=== PATIENT | female | born 1965 | race Caucasian/White ===

== ENCOUNTER 2016-03-12 16:00 | Outpatient (RCR) | payer BC ==
[~2016-03-12 16:00] MED LIST: /CARBXR20T OR; ALBUTEROL XX; CALCTAB22 OR; COMPAZINE PO; MAXA10TA17 OR; MULTIVIT PO; PERC5TAB8 OR; TOPI100T OR; TOPI50TA OR; VITA100T OR; VITA500T OR; VITAMIN D50000 UNT OR; ZITH500T OR
== END 2016-03-13 ==
LOC: M OUTALCOH 16:00
PROVIDERS: ATTEND Psychiatry & Neurology Psychiatry
DX: F10.10 Alcohol abuse, uncomplicated (principal); F11.20 Opioid dependence, uncomplicated; F13.20 Sedative, hypnotic or anxiolytic dependence, uncomplicated; F19.20 Other psychoactive substance dependence, uncomplicated

== ENCOUNTER 2016-03-28 08:55 | Outpatient (RCR) | payer BC | END 2016-04-10 | LOC: M OUTALCOH 08:55 | PROVIDERS: ATTEND Psychiatry & Neurology Psychiatry | DX: F11.20 Opioid dependence, uncomplicated (principal); F10.10 Alcohol abuse, uncomplicated; F13.20 Sedative, hypnotic or anxiolytic dependence, uncomplicated; F19.20 Other psychoactive substance dependence, uncomplicated ==

== ENCOUNTER 2016-04-24 09:00 | Outpatient (RCR) | payer OTHER | END 2016-05-11 | LOC: M OUTALCOH 09:00 | PROVIDERS: ATTEND Psychiatry & Neurology Psychiatry | DX: F10.10 Alcohol abuse, uncomplicated (principal); F13.20 Sedative, hypnotic or anxiolytic dependence, uncomplicated; F19.20 Other psychoactive substance dependence, uncomplicated; F11.20 Opioid dependence, uncomplicated ==

== ENCOUNTER → 2016-04-26 | Outpatient (REF) | payer OTHER | LOC: M LAB REF 16:21 | PROVIDERS: ATTEND Nurse Practitioner Adult Health | DX: G40.89 Other seizures (principal) ==

== ENCOUNTER 2016-11-15 09:18 | Emergency (ER) | payer OTHER ==
[~2016-11-15] VITALS: Ht 162.6 cm; Wt 87.7 kg
[2016-11-15 09:18] VITALS: BP 114/73
[2016-11-15] MEDS ORDERED: DULO1CAP2 (09:31)
[2016-11-15] MEDS ORDERED: HYDR1CAP25 (09:31)
[2016-11-15] MEDS ORDERED: XARE20TA (09:31)
[2016-11-15] MEDS ORDERED: ONDA8TAB8 (09:31)
[2016-11-15] MEDS ORDERED: TRAZ-136 (09:31)
[2016-11-15] MEDS ORDERED: AZEL0.055 (09:31)
[2016-11-15] MEDS ORDERED: NALT50TA4 (09:31)
[2016-11-15] MEDS ORDERED: predniSONE 20 MG TAB PO ONE (10:15)
--- NOTE | 2016-11-15 10:47 | REP ---
Right ribs and PA chest: Right ribs four views: There is no rib fracture or other rib abnormality. PA chest: Comparison is 05/08/2014. There is no pneumothorax, hemothorax or pulmonary contusion. Lung jay are clear. Cardiac size is normal. The stevie, mediastinum, bony thorax unremarkable. Impression: Negative PA chest. Signed by Sven Jacobo MD 11/15/2016 10:39 A
[2016-11-15] MEDS ORDERED: NORCOTAB PO (10:57)
[2016-11-15] MEDS ORDERED: CYCL10TA PO (10:57)
== END 2016-11-15 11:21 | disposition home or self-care (01) ==
LOC: M ED 09:18
DX: S20.229A Contusion of unspecified back wall of thorax, initial encounter (principal); W22.03XA Walked into furniture, initial encounter; Y92.239 Unspecified place in hospital as the place of occurrence of the external cause; Y93.89 Activity, other specified; Y99.0 Civilian activity done for income or pay; F41.9 Anxiety disorder, unspecified; R56.9 Unspecified convulsions; Z79.01 Long term (current) use of anticoagulants; Z79.899 Other long term (current) drug therapy; Z88.1 Allergy status to other antibiotic agents; Z88.0 Allergy status to penicillin; Z88.8 Allergy status to other drugs, medicaments and biological substances; Z91.030 Bee allergy status; Z98.890 Other specified postprocedural states; Z98.0 Intestinal bypass and anastomosis status; Z87.891 Personal history of nicotine dependence; Z86.711 Personal history of pulmonary embolism

== ENCOUNTER 2017-04-22 10:02 | Emergency (ER) | payer OTHER ==
[2017-04-22 10:42] LABS: BASO % 0.8 % (0.0-1.0); EOS # 0.1 10^3/uL (0.0-0.50); EOS % 1.7 % (0.0-3.0); HEMATOCRIT 38.7 % (36.0-47.0); IMMATURE GRANULOCYTE % 0.2 % (0-3.0); LYMPH # 1.2 10^3/uL (1.5-4.5); LYMPH % 22.7 % (24.0-44.0); MEAN CORPUSCULAR HEMOGLOBIN 29.3 pg (27.0-33.0); MEAN CORPUSCULAR HGB CONC 33.6 g/dl (32.0-36.5); MEAN CORPUSCULAR VOLUME 87.2 fl (80.0-96.0); MONO # 0.3 10^3/uL (0.0-0.8); MONO % 5.6 % (0.0-5.0); NEUTROPHILS # 3.7 10^3/uL (1.8-7.7); PLATELET COUNT, AUTOMATED 246 10^3/uL (150-450); RED BLOOD COUNT 4.44 10^6/uL (4.00-5.40); RED CELL DISTRIBUTION WIDTH 12.6 % (11.5-14.5); WHITE BLOOD COUNT 5.3 10^3/uL (4.0-10.0)
[2017-04-22] MEDS: GI COCKTAIL 50ML BTL(HYOSCYAMINE/MAALOX/LIDOCAINE VISCOUS)(1:3:1) PO (10:44)
[2017-04-22 10:53] LABS: INR 1.27; PROTHROMBIN TIME 16.2 SECONDS (12.4-14.5)
[2017-04-22 10:54] LABS: PARTIAL THROMBOPLASTIN TIME 27.7 SECONDS (26.8-37.9)
[2017-04-22 10:55] LABS: ALBUMIN/GLOBULIN RATIO 1.14 (1.00-1.93); ALKALINE PHOSPHATASE 92 U/L (45-117); ALT/SGPT 43 U/L (12-78); ANION GAP 8 MEQ/L (8-16); AST/SGOT 32 U/L (7-37); BILIRUBIN,DIRECT < 0.1 MG/DL (0.0-0.2); BILIRUBIN,TOTAL 0.3 MG/DL (0.2-1.0); BLOOD UREA NITROGEN 15 MG/DL (7-18); CALCIUM LEVEL 9.1 MG/DL (8.5-10.1); CARBON DIOXIDE LEVEL 23 MEQ/L (21-32); CHLORIDE LEVEL 109 MEQ/L (98-107); CPK CREATINE PHOSPHOKINASE 147 U/L (26-192); CREATININE FOR GFR 1.11 MG/DL (0.55-1.30); GLOMERULAR FILTRATION RATE 54.7 (>51); GLUCOSE, FASTING 95 MG/DL (70-100); LIPASE 147 U/L (73-393); SODIUM LEVEL 140 MEQ/L (136-145); TOTAL PROTEIN 7.5 GM/DL (6.4-8.2); TROPONIN I < 0.02 NG/ML (< 0.10)
[2017-04-22 11:01] LABS: CK-MB VALUE MASS 2.5 NG/ML (0.0-3.6)
[2017-04-22 11:15] LABS: D-DIMER QUANT 551.3 ng/ml (<500)
[2017-04-22] MEDS ORDERED: ISOVUE-370 76% 100ML VIAL (Q9967) As Ordered (11:33)
== END 2017-04-22 13:24 | disposition home or self-care (01) ==
LOC: M ED 10:02
DX: K80.70 Calculus of gallbladder and bile duct without cholecystitis without obstruction (principal); Z79.899 Other long term (current) drug therapy; Z86.711 Personal history of pulmonary embolism; Z98.0 Intestinal bypass and anastomosis status; Z82.49 Family history of ischemic heart disease and other diseases of the circulatory system; Z87.891 Personal history of nicotine dependence; Z88.0 Allergy status to penicillin; Z88.5 Allergy status to narcotic agent; Z88.1 Allergy status to other antibiotic agents; Z91.030 Bee allergy status
CPT/HCPCS: Q9967

== ENCOUNTER 2017-05-09 07:22 | Day surgery (SDC) | payer OTHER ==
[2017-05-09] MEDS: NS 1,000 ML IV (07:44)
[2017-05-09] MEDS ORDERED: LIDOCAINE 2% INJ 100 MG/5 ML SDV (FOR ANES.) As Ordered (07:51)
[2017-05-09] MEDS ORDERED: PROPOFOL 200 MG/20 ML VIAL As Ordered ×2 (07:53→08:51)
[2017-05-09] MEDS ORDERED: fentaNYL 100 MCG/2 ML INJECTION (J3010) As Ordered (08:27)
== END 2017-05-09 10:05 | disposition home or self-care (01) ==
LOC: M OPP 07:22
DX: Z12.11 Encounter for screening for malignant neoplasm of colon (principal); D12.0 Benign neoplasm of cecum; R10.13 Epigastric pain; K31.89 Other diseases of stomach and duodenum; K21.9 Gastro-esophageal reflux disease without esophagitis; Z98.0 Intestinal bypass and anastomosis status; Z98.84 Bariatric surgery status; Z86.711 Personal history of pulmonary embolism; K80.20 Calculus of gallbladder without cholecystitis without obstruction; G43.909 Migraine, unspecified, not intractable, without status migrainosus; R56.9 Unspecified convulsions; F32.9 Major depressive disorder, single episode, unspecified; F41.9 Anxiety disorder, unspecified; Z78.0 Asymptomatic menopausal state; Z87.891 Personal history of nicotine dependence; Z88.0 Allergy status to penicillin; Z88.8 Allergy status to other drugs, medicaments and biological substances; Z88.1 Allergy status to other antibiotic agents; Z91.030 Bee allergy status; Z79.82 Long term (current) use of aspirin; Z79.899 Other long term (current) drug therapy; Z79.01 Long term (current) use of anticoagulants; Z80.49 Family history of malignant neoplasm of other genital organs
CPT/HCPCS: 45385

== ENCOUNTER → 2017-12-18 | Outpatient (REF) | payer OTHER ==
[2017-12-22 14:08] LABS: VITAMIN A, RETINOL LEVEL 36.5 ug/dL (33.1-100.0)
== END ==
LOC: M LAB REF 12:43
DX: Z98.84 Bariatric surgery status (principal)

== ENCOUNTER → 2018-04-16 | Outpatient (CLI) | payer OTHER ==
[~2018-04-16] MED LIST changes: +ASPI81TA85 PO; +AZEL0.055; +CALC1TAB26 PO; +CETI10TA PO; +CYCL10TA PO; +DEXI60CA2 PO; +DULO1CAP2 PO; +HAIR1TAB5 PO; +HYDR1CAP25; +MELA10CA PO; +MURO5OIN OD; +NALT50TA4; +NORCOTAB PO; +ONDA8TAB8; +PERC5TAB12 PO; +TRAZ-163; +VIST25CA PO; +VITA100066 PO; +XARE20TA; +ZOFR4TAB14 PO
--- NOTE | 2018-04-16 17:48 | REPMRS ---
Patient History The patient states she had a clinical breast exam in 04/29 Family history of breast cancer at age 50 or over in maternal aunt, colorectal cancer at age 50 or over in maternal aunt. 3D TOMOSYNTHESIS WAS PERFORMED. Digital Woman Screen Mammo: April 16, 2018 - Exam #: [id number] Bilateral CC and MLO view(s) were taken. Technologist: Juana Russell, Technologist Prior study comparison: October 07, 2014, digital woman screen mammo performed at [facility]. August 13, 2013, digital woman screen mammo performed at [facility]. FINDINGS: There are scattered fibroglandular densities. There has been no change in the appearance of the mammogram from the prior studies. There is a mild amount of residual fibroglandular tissue which is fairly symmetric. There is no interval development of dominant mass, architectural distortion, or clustered microcalcification suggestive of malignancy. Assessment: BI-RADS/ACR category 1 mammogram. Negative Mammogram. Recommendation Routine screening mammogram in 1 year (for women over age 40). This mammogram was interpreted with the aid of an FDA-approved computer-aided dectection system. Electronically Signed By: Sven Panchal MD 04/16/18 [id number]
== END ==
LOC: M WHC 14:17
PROVIDERS: ATTEND Nurse Practitioner Family
DX: Z12.31 Encounter for screening mammogram for malignant neoplasm of breast (principal)

== ENCOUNTER → 2018-04-16 | Outpatient (REF) | payer OTHER ==
[2018-04-18 14:21] LABS: HPV HYBRID CAPTURE II Negative (Negative)
== END ==
LOC: M SFHCWAGY 14:31
PROVIDERS: ATTEND Nurse Practitioner Family
DX: Z12.4 Encounter for screening for malignant neoplasm of cervix (principal)
CPT/HCPCS: 87624; G0123

== ENCOUNTER 2018-10-30 11:52 | Emergency (ER) | payer OTHER ==
[~2018-10-30] VITALS: Ht 162.6 cm; Wt 88.2 kg
[~2018-10-30 11:52] MED LIST changes: -/CARBXR20T OR; -DULO1CAP2 PO; +DULO1CAP5 PO; +HYDR-3715 PO; -NORCOTAB PO; -ONDA8TAB8; +ONDA8TAB8 PO; +TEGR1TAB OR; -TRAZ-163; +TRAZ-163 PO; -XARE20TA; +XARE20TA PO
[2018-10-30] MEDS ORDERED: MORPHINE 4 MG/ML 1ML VIAL/SYRINGE (J2270) IV ONE (12:15)
[2018-10-30] MEDS ORDERED: NS 1,000 ML IV ONE (12:15)
[2018-10-30] MEDS ORDERED: ONDANSETRON 4MG/2ML VIAL (J2405) IV ONE (12:15)
[2018-10-30] MEDS ORDERED: PANTOPRAZOLE 40MG INJ (PROTONIX) (C9113) IV ONE (12:15)
[2018-10-30] MEDS ORDERED: KETOROLAC 30 MG/ML VIAL (J1885) IV ONE (12:15)
[2018-10-30 12:28] LABS: BASO % 0.7 % (0.0-1.0); EOS % 0.5 % (0.0-3.0); HEMATOCRIT 39.5 % (36.0-47.0); HEMOGLOBIN 13.1 g/dl (12.0-15.5); LYMPH # 1.2 10^3/uL (1.5-5.0); LYMPH % 28.1 % (24.0-44.0); MEAN CORPUSCULAR HEMOGLOBIN 29.4 pg (27.0-33.0); MEAN CORPUSCULAR HGB CONC 33.2 g/dl (32.0-36.5); MEAN CORPUSCULAR VOLUME 88.8 fl (80.0-96.0); MONO # 0.2 10^3/uL (0.0-0.8); MONO % 4.7 % (0.0-5.0); NEUTROPHILS # 2.8 10^3/uL (1.5-8.5); NEUTROPHILS % 65.8 % (36.0-66.0); PLATELET COUNT, AUTOMATED 255 10^3/uL (150-450); RED BLOOD COUNT 4.45 10^6/uL (4.00-5.40); WHITE BLOOD COUNT 4.2 10^3/uL (4.0-10.0)
[2018-10-30 13:38] LABS: ALT/SGPT 47 U/L (12-78); BILIRUBIN,DIRECT < 0.1 MG/DL (0.0-0.2); BILIRUBIN,TOTAL 0.4 MG/DL (0.2-1.0); CK-MB VALUE MASS 2.2 NG/ML (<3.6); CPK CREATINE PHOSPHOKINASE 173 U/L (26-192); LIPASE 228 U/L (73-393); MB/CK RELATIVE INDEX 1.27 (< OR =4); TOTAL PROTEIN 7.4 GM/DL (6.4-8.2); TROPONIN I < 0.02 NG/ML (< 0.10)
[2018-10-30 14:10] LABS: AMYLASE 55 U/L (25-115); BLOOD UREA NITROGEN 13 MG/DL (7-18); CALCIUM LEVEL 9.2 MG/DL (8.5-10.1); CARBON DIOXIDE LEVEL 21 MEQ/L (21-32); CHLORIDE LEVEL 110 MEQ/L (98-107); CREATININE FOR GFR 1.06 MG/DL (0.55-1.30); GLOMERULAR FILTRATION RATE 57.3 (>51); GLUCOSE, FASTING 102 MG/DL (70-100); POTASSIUM SERUM 4.7 MEQ/L (3.5-5.1); SODIUM LEVEL 142 MEQ/L (136-145)
--- NOTE | 2018-10-30 14:11 | REP ---
RIGHT UPPER QUADRANT ULTRASOUND: Real-time sonographic evaluation of the right upper quadrant performed. Gallstones are seen in the gallbladder which appear mobile. There is no gallbladder wall thickening or pericholecystic fluid. There is no intrahepatic biliary dilatation. Common bile duct is upper limits of normal at 7 mm. Liver is heterogeneous in echotexture. No gross liver or pancreatic mass is seen. Right kidney demonstrates no hydronephrosis with normal size 10.2 cm in length. IMPRESSION: Mobile gallstones in the gallbladder, which is moderately distended. There is no gallbladder wall thickening, pericholecystic fluid or significant biliary dilatation, common bile duct measuring 7 mm, at the upper limits of normal. Electronically Signed by Sven Panchal MD 10/30/2018 05:39 P
[2018-10-30] MEDS ORDERED: NORC1TAB7 PO (14:34)
[2018-10-30] MEDS ORDERED: ZOFR4TAB16 PO (14:34)
[2018-10-30 14:42] VITALS: BP 157/65
--- NOTE | 2018-10-30 21:40 | ECGEPIP ---
[facility] - ED Test Date: 2018-10-30 Pat Name: JANE MIKE Department: Room: - Gender: Female Outdoor Illuminating Engineer: ILIANA : 1965 Requested By: Karoline Raymundo Order Number: [id number] Reading MD: Karoline Raymundo Measurements Intervals [place] Rate: 70 P: 75 CO: 171 QRS: 80 QRSD: 95 T: 62 QT: 411 QTc: 445 Interpretive Statements SINUS RHYTHM MODERATE T-WAVE ABNORMALITY, CONSIDER ANTERIOR ISCHEMIA SIMILAR 04/22/17 Electronically Signed on 10-30-2018 21:40:03 EDT by Karoline Raymundo
[2018-11-12] MEDS ORDERED: RIZA10TA4 PO (14:58)
[2018-11-12] MEDS ORDERED: [UNRECOGNIZED DRUG - OTHER] PO (14:58)
[2018-11-12] MEDS ORDERED: TOPI50TA9 PO (14:58)
[2018-11-12] MEDS ORDERED: CARB200T98 PO (14:58)
[2018-11-12] MEDS ORDERED: MULTCAP PO (14:58)
== END 2018-10-30 14:44 | disposition home or self-care (01) ==
LOC: M ED 11:52
DX: K80.60 Calculus of gallbladder and bile duct with cholecystitis, unspecified, without obstruction (principal); I10 Essential (primary) hypertension; Z98.84 Bariatric surgery status; Z79.899 Other long term (current) drug therapy; Z79.82 Long term (current) use of aspirin; Z79.01 Long term (current) use of anticoagulants; Z88.0 Allergy status to penicillin; Z88.1 Allergy status to other antibiotic agents; Z91.030 Bee allergy status; Z91.040 Latex allergy status
CPT/HCPCS: 76705; 80047; 80048; 80076; 82150; 82550; 82553; 83690; 84484; 85025; 93005; 93041; 96361; 96374; 96375; 99284; C9113; J1885; J2270; J2405

== ENCOUNTER 2018-11-18 07:20 | Day surgery (SDC) | payer OTHER ==
[~2018-11-18] VITALS: Ht 162.6 cm; Wt 87.1 kg
[~2018-11-18 07:20] MED LIST changes: +CARB200T98 PO; +LR 1,000 ML IV ONE; +MULTCAP PO; +NORC1TAB7 PO; +RIZA10TA4 PO; +TOPI50TA9 PO; +ZOFR4TAB16 PO; +[UNRECOGNIZED DRUG - OTHER] PO
[2018-11-18] MEDS ORDERED: ceFAZolin 1GM INJ (J0690 PER 500MG) As Ordered ONE (08:06)
[2018-11-18] MEDS ORDERED: MIDAZOLAM INJ 5 MG/ML VIAL (J2250) As Ordered ONE ×2 (08:08→09:05)
[2018-11-18] MEDS ORDERED: PROPOFOL 200 MG/20 ML VIAL As Ordered ONE (08:08)
[2018-11-18] MEDS ORDERED: LIDOCAINE 2% INJ 100 MG/5 ML SDV (FOR ANES.) As Ordered ONE (08:08)
[2018-11-18] MEDS ORDERED: ROCURONIUM BROMIDE 50 MG/5 ML VIAL As Ordered ONE (08:08)
[2018-11-18] MEDS ORDERED: fentaNYL 250 MCG/5 ML INJECTION (J3010) As Ordered ONE (08:08)
[2018-11-18] MEDS ORDERED: ceFAZolin SOD 1 GM in D5W MINI-BAG PLUS 50 ML IV ONE (08:15)
[2018-11-18] MEDS ORDERED: ACETAMINOPHEN 1000MG 100ML IV BTL (OFIRMEV) (J0131 PER 10MG) As Ordered ONE ×2 (08:17→09:44)
[2018-11-18] MEDS ORDERED: SCOPOLAMINE 1MG TRANSDERMAL PATCH As Ordered ONE (08:27)
[2018-11-18] MEDS ORDERED: SCOPOLAMINE 1MG TRANSDERMAL PATCH TOP ONE (08:30)
[2018-11-18] MEDS ORDERED: BUPIVACAINE/EPIN 0.25% 30 ML VIAL As Ordered ONE (09:05)
[2018-11-18] MEDS ORDERED: KETOROLAC 60 MG/2 ML VIAL (J1885) As Ordered ONE (09:44)
[2018-11-18] MEDS ORDERED: SUGAMMADEX SODIUM 500 MG/5 ML VIAL (BRIDION) As Ordered ONE (09:44)
[2018-11-18] MEDS ORDERED: ONDANSETRON 4MG/2ML VIAL (J2405) As Ordered ONE ×2 (09:44→11:18)
[2018-11-18] MEDS ORDERED: dexameTHASONE 4 MG/ML 1ML VIAL (J1100) As Ordered ONE (09:44)
[2018-11-18] MEDS ORDERED: BUPIVACAINE LIPOSOME/PF 1.3% 20ML VIAL (13.3MG/ML)(EXPAREL)(C9290 PER1MG) As Ordered ONE (09:45)
--- NOTE | 2018-11-18 11:20 | RO ---
DATE OF PROCEDURE: 11/18/2018 PREOPERATIVE DIAGNOSIS: Symptomatic gallstones. POSTOPERATIVE DIAGNOSIS: Symptomatic gallstones. PROCEDURE: Laparoscopic cholecystectomy. SURGEON: Dr. Anthony Wells. TEST CARRIER: ANESTHESIA: General endotracheal anesthesia. ESTIMATED BLOOD LOSS: 50 mL . FLUIDS: Crystalloid. DESCRIPTION OF PROCEDURE: The patient was brought to the operating room and was given general anesthesia. After adequate anesthesia and preoperative antibiotics were given, the patient was prepped and draped in sterile fashion. Next supraumbilical incision was made with skin knife. Blunt dissection was carried down to fascia and Veress needle placed into the abdominal cavity insufflated to 15 mm of pressure. A 10 mm trocar was placed at this time and under direct visualization two lateral trocars were placed. There were many adhesions from her previous upper midline incision which were taken down up to the falciform ligament with electrocautery. This was all omentum that was stuck up against the anterior abdominal wall and then I was able to place the epigastric 5 mm trocar at that time. The gallbladder was grasped, retracted superiorly. There is a very distended gallbladder and had edema in its wall but eventually the peritoneum was cleared of the gallbladder. There were small bowel that was adherent to the gallbladder as well, which was bluntly dissected down quite nicely and eventually the neck of the gallbladder was cleared down to the cystic duct area. Cystic artery was well visualized as well and then once a critical view of safety was obtained, the cystic artery was clipped and then further dissection of the gallbladder, which was extremely redundant was clipped proximally and distally right at the neck of the gallbladder. The cystic duct was transected at this time and then the gallbladder was removed from the gallbladder bed using electrocautery. The patient did have some chronic changes of her liver showing some fatty changes and with retraction of the gallbladder alone, there was some minimal oozing along the gallbladder edge/liver junction, which was controlled with electrocautery and then the gallbladder was placed in an EndoCatch bag. However, with removing the gallbladder out through the umbilicus, the gallbladder was so distended it actually did not allow the gallbladder to come through the umbilicus and then I decompress the gallbladder to some extent and still was difficult to get through the hole and thus the incision was increased slightly and the 15 blade was used to increase the lower portion towards the umbilicus. Then the gallbladder was able to be easily removed. Right upper quadrant was copiously irrigated again until clear and all trocars removed under direct visualization. There was oozing right along the edge of the rectus muscle/midline and using a 0 Vicryl, I then took a big bite of the muscle fascia in this area to place a [id number] around the oozing in the side in the lower portion of the incision. With this, however, the patient had tightened her abdomen at the same time and a small portion of the small bowel, just the serosa, was grasped with the end of the needle and thus, at this point, the abdomen was re-insufflated and the area in question was evaluated and just a clip was placed right across the area where the suture had passed through the serosa. It was an extremely superficial needle bite and I did feel that it was not unreasonable to possibly remove this suture through here, itself but a clip was just placed across the surface of the serosa in this area. Then the midline was closed with a Apolinar-Simon. There was still oozing from the midline and it was relatively difficult to insufflate. Eventually after placing two xusklm-[id number] 0 Vicryl sutures in this area, good hemostasis was achieved. This was irrigated copiously. The abdomen was desufflated re-insufflated and revealed good hemostasis at this site. The right upper quadrant was clean and dry and the abdomen was irrigated until clear. All trocars were removed under direct visualization and #4-0 Vicryl was used to close all incisions. Steri-Strips and a dry sterile dressing was applied. The patient was awakened, extubated, brought to the recovery room awake, alert, hemodynamically stable. Sponge, needle counts correct times two.
[2018-11-18] MEDS ORDERED: oxyCODONE 5MG TAB As Ordered ONE (11:33)
[2018-11-18] MEDS: oxyCODONE 5MG TAB PO PRN ×2 (11:40→12:08)
[2018-11-18] MEDS ORDERED: HYDROMORPHONE HCL 0.5 MG/ 0.5 ML SYRINGE (J1170 PER 1) IV PRN (11:45)
[2018-11-18] MEDS ORDERED: LR 1,000 ML IV SCH ×2 (11:45→12:46)
[2018-11-18] MEDS ORDERED: fentaNYL 100 MCG/2 ML INJECTION (J3010) IV PRN (11:45)
[2018-11-18] MEDS ORDERED: ONDANSETRON 4MG/2ML VIAL (J2405) IV PRN ×2 (11:45→12:46)
[2018-11-18] MEDS ORDERED: NORCO, ANEXSIA 5/325MG TABLET (HYDROcodone/ACETAMINOPHEN) PO PRN (12:46)
[2018-11-18 13:30] VITALS: BP 103/57
== END 2018-11-18 13:35 | disposition home or self-care (01) ==
LOC: M SDC 07:20
PROVIDERS: ATTEND Surgery
DX: K80.10 Calculus of gallbladder with chronic cholecystitis without obstruction (principal); K29.70 Gastritis, unspecified, without bleeding; F32.9 Major depressive disorder, single episode, unspecified; Z86.711 Personal history of pulmonary embolism; Z79.01 Long term (current) use of anticoagulants; Z88.0 Allergy status to penicillin; Z88.1 Allergy status to other antibiotic agents; Z91.030 Bee allergy status; Z91.040 Latex allergy status
CPT/HCPCS: 47562; 88304; C9290; J0131; J0690; J1100; J1885; J2250; J2405; J3010

== ENCOUNTER 2018-11-23 15:16 | Observation (INO) | payer OTHER ==
[~2018-11-23] VITALS: Ht 162.6 cm; Wt 88.7 kg
[~2018-11-23 15:16] MED LIST changes: -LR 1,000 ML IV ONE; -RIZA10TA4 PO; +RIZA10TA58 PO
[2018-11-23] MEDS ORDERED: TUMS500C PO (15:48)
[2018-11-23] MEDS ORDERED: HYDR-4571 PO (15:48)
[2018-11-23 16:21] LABS: BASO % 0.2 % (0.0-1.0); EOS # 0.1 10^3/uL (0.0-0.5); EOS % 0.9 % (0.0-3.0); HEMATOCRIT 34.7 % (36.0-47.0); HEMOGLOBIN 11.9 g/dl (12.0-15.5); LYMPH # 0.6 10^3/uL (1.5-5.0); LYMPH % 6.7 % (24.0-44.0); MEAN CORPUSCULAR HEMOGLOBIN 30.1 pg (27.0-33.0); MEAN CORPUSCULAR HGB CONC 34.3 g/dl (32.0-36.5); MEAN CORPUSCULAR VOLUME 87.6 fl (80.0-96.0); MONO # 0.4 10^3/uL (0.0-0.8); MONO % 4.9 % (0.0-5.0); NEUTROPHILS # 7.7 10^3/uL (1.5-8.5); NEUTROPHILS % 87.1 % (36.0-66.0); PLATELET COUNT, AUTOMATED 210 10^3/uL (150-450); RED BLOOD COUNT 3.96 10^6/uL (4.00-5.40); WHITE BLOOD COUNT 8.9 10^3/uL (4.0-10.0)
[2018-11-23] MEDS: MORPHINE 4 MG/ML 1ML VIAL/SYRINGE (J2270) IV PRN ×2 (16:29→17:08)
[2018-11-23] MEDS ORDERED: NS 1,000 ML IV ONE (16:30)
[2018-11-23] MEDS ORDERED: ONDANSETRON 4MG/2ML VIAL (J2405) IV ONE ×2 (16:30→18:00)
[2018-11-23 16:32] LABS: ALBUMIN 3.3 GM/DL (3.2-5.2); ALT/SGPT 39 U/L (12-78); BILIRUBIN,DIRECT 0.1 MG/DL (0.0-0.2); BILIRUBIN,TOTAL 0.5 MG/DL (0.2-1.0); BLOOD UREA NITROGEN 11 MG/DL (7-18); CARBON DIOXIDE LEVEL 22 MEQ/L (21-32); CHLORIDE LEVEL 108 MEQ/L (98-107); CREATININE FOR GFR 0.99 MG/DL (0.55-1.30); GLOMERULAR FILTRATION RATE > 60.0 (>51); GLUCOSE, FASTING 98 MG/DL (70-100); LIPASE 82 U/L (73-393); POTASSIUM SERUM 4.2 MEQ/L (3.5-5.1); SODIUM LEVEL 138 MEQ/L (136-145); TOTAL PROTEIN 6.8 GM/DL (6.4-8.2)
[2018-11-23] MEDS: GASTROGRAFIN SOLUTION 30ML PO SCH ×2 (17:17→17:45)
[2018-11-23] MEDS ORDERED: LORazepam 2 MG/ML VIAL (J2060) IV ONE (17:30)
[2018-11-23] MEDS ORDERED: MORPHINE 4 MG/ML 1ML VIAL/SYRINGE (J2270) IV PRN (18:00)
[2018-11-23] MEDS ORDERED: ISOVUE-370 76% 100ML VIAL (Q9967) As Ordered ONE (18:39)
--- NOTE | 2018-11-23 19:08 | REPVR ---
PROCEDURE INFORMATION: Exam: CT Abdomen And Pelvis With Contrast Exam date and time: 11/23/2018 6:40 PM Clinical history: 53 years old, female; Abdominal pain; Epigastric; Prior surgery; Additional info: Post lap meghan R/O bile leak, jaime-en-y perf TECHNIQUE: Imaging protocol: Computed tomography of the abdomen and pelvis with intravenous contrast. Radiation optimization: All CT scans at this facility use at least one of these dose optimization techniques: automated exposure control; mA and/or kV adjustment per patient size (includes targeted exams where dose is matched to clinical indication); or iterative reconstruction. Contrast material: ISOVUE 370; Contrast volume: 100 ml; Contrast route: IV; COMPARISON: GALLBLADDER US 10/30/2018 1:11 PM FINDINGS: Liver: Liver is unremarkable. Gallbladder and bile ducts: Prior cholecystectomy. Soft tissue edema and small amount of fluid in the gallbladder fossa. Common bile duct is difficult to visualize but does not appear to be dilated. Pancreas: Normal. No ductal dilation. Spleen: Normal. No splenomegaly. Adrenals: Normal. No mass. Kidneys and ureters: Normal. No hydronephrosis. Stomach and bowel: Changes from prior bariatric surgery are noted. No bowel obstruction or inflammatory changes. Appendix: No evidence of appendicitis. Intraperitoneal space: Mild perihepatic free fluid. Vasculature: Unremarkable. No abdominal aortic aneurysm. Lymph nodes: Unremarkable. No enlarged lymph nodes. Bladder: Unremarkable as visualized. Reproductive: Unremarkable as visualized. Bones/joints: There are degenerative changes in the spine and pelvis. Soft tissues: Unremarkable. IMPRESSION: Prior cholecystectomy. Mild fluid in the gallbladder fossa and mild pericholecystic fluid. Fluid is of uncertain etiology but bile leak cannot be excluded. Consider follow up HIDA scan. Electronically signed by: Varun Ruth On 11/23/2018 19:08:30 PM
--- NOTE | 2018-11-23 19:16 | ECGEPIP ---
[facility] - ED Test Date: 2018-11-23 Pat Name: JANE MIKE Department: Room: - Gender: Female Stem Assembler: ROBIN : 1965 Requested By: Andrea Marcelino Order Number: [id number] Reading MD: Alberto Garces Measurements Intervals [place] Rate: 73 P: 56 HI: 132 QRS: 49 QRSD: 89 T: 22 QT: 406 QTc: 449 Interpretive Statements SINUS RHYTHM MODERATE T-WAVE ABNORMALITY, CONSIDER ANTERIOR ISCHEMIA Baseline artifact Similar to tracing done 10-30-18 Electronically Signed on 11-23-2018 19:16:06 EDT by Alberto Garces
[2018-11-23] MEDS: HYDROMORPHONE HCL 0.5 MG/ 0.5 ML SYRINGE (J1170 PER 1) IV PRN ×2 (19:23→19:48)
[2018-11-23] MEDS: LR 1,000 ML IV SCH (20:13)
[2018-11-23] MEDS ORDERED: ONDANSETRON 4MG/2ML VIAL (J2405) IV PRN (20:15)
[2018-11-23] MEDS ORDERED: PERCOCET 5MG/325MG TAB PO PRN (20:15)
[2018-11-23] MEDS ORDERED: ACETAMINOPHEN TAB 650MG DOSE (2X325MG) PO PRN (20:15)
[2018-11-23] MEDS ORDERED: [UNRECOGNIZED DRUG - OTHER] PO (20:31)
[2018-11-23] MEDS: KETOROLAC 30 MG/ML VIAL (J1885) IV PRN (20:46)
[2018-11-23 22:00] VITALS: BP 166/86
[2018-11-23] MEDS: PERCOCET 5MG/325MG TAB PO PRN (22:20)
[2018-11-23] MEDS: SENOKOT S TAB PO SCH (22:24)
[2018-11-24] MEDS: MORPHINE 4 MG/ML 1ML VIAL/SYRINGE (J2270) IV PRN ×3 (00:44→14:44)
[2018-11-24] MEDS: KETOROLAC 30 MG/ML VIAL (J1885) IV PRN ×2 (02:29→08:30)
[2018-11-24] MEDS: PERCOCET 5MG/325MG TAB PO PRN (04:16)
[2018-11-24 05:00] VITALS: BP 122/72
[2018-11-24] MEDS: LR 1,000 ML IV SCH (05:33)
[2018-11-24 06:49] LABS: BASO % 0.1 % (0.0-1.0); EOS % 0.2 % (0.0-3.0); HEMATOCRIT 33.4 % (36.0-47.0); HEMOGLOBIN 11.5 g/dl (12.0-15.5); LYMPH # 0.8 10^3/uL (1.5-5.0); LYMPH % 6.9 % (24.0-44.0); MEAN CORPUSCULAR HEMOGLOBIN 29.9 pg (27.0-33.0); MEAN CORPUSCULAR HGB CONC 34.4 g/dl (32.0-36.5); MONO # 0.6 10^3/uL (0.0-0.8); MONO % 5.2 % (0.0-5.0); NEUTROPHILS # 9.7 10^3/uL (1.5-8.5); NEUTROPHILS % 87.1 % (36.0-66.0); PLATELET COUNT, AUTOMATED 193 10^3/uL (150-450); RED BLOOD COUNT 3.84 10^6/uL (4.00-5.40); WHITE BLOOD COUNT 11.2 10^3/uL (4.0-10.0)
[2018-11-24 07:14] LABS: ALBUMIN 2.9 GM/DL (3.2-5.2); ALT/SGPT 78 U/L (12-78); BILIRUBIN,TOTAL 0.6 MG/DL (0.2-1.0); BLOOD UREA NITROGEN 9 MG/DL (7-18); CALCIUM LEVEL 8.5 MG/DL (8.5-10.1); CARBON DIOXIDE LEVEL 24 MEQ/L (21-32); CHLORIDE LEVEL 110 MEQ/L (98-107); CREATININE FOR GFR 0.84 MG/DL (0.55-1.30); GLOMERULAR FILTRATION RATE > 60.0 (>51); GLUCOSE, FASTING 116 MG/DL (70-100); POTASSIUM SERUM 3.6 MEQ/L (3.5-5.1); SODIUM LEVEL 141 MEQ/L (136-145); TOTAL PROTEIN 6.2 GM/DL (6.4-8.2)
[2018-11-24] MEDS: SENOKOT S TAB PO SCH (07:35)
[2018-11-24 08:00] VITALS: BP 129/78
[2018-11-24] MEDS ORDERED: FLUBLOK(EGG FREE)(QUAD)INFLUENZA VACC 0.5ML SYRINGE (90682)18YRS&OLDER IM ONE (09:00)
[2018-11-24] MEDS ORDERED: cefTRIAXone SOD 2 GM in D5W MINI-BAG PLUS 50 ML IV SCH (10:00)
[2018-11-24] MEDS ORDERED: PANTOPRAZOLE 40MG INJ (PROTONIX) (C9113) IV SCH (10:00)
--- NOTE | 2018-11-24 10:26 | HPEPDOC ---
General Surgery H&P Date of Admission Nov 24, 2018 Attending Physician: Anthony Wells Jr History and Physical CHIEF COMPLAINT: abdominal pain HISTORY OF PRESENT ILLNESS: 53 F with recent laparoscopic cholecystectomy done by Dr. Wells on 11/18/2018. She was discharged home and was feeling relatively well until Saturday evening when she started having severe midepigastric discomfort radiating to both right upper quadrant and left upper quadrant area with nausea and couple episodes of vomiting. She denies any acco mpanying fevers or chills, drainage from her incision sites. She has a remote history of open gastric bypass. Patient denies any overt shortness of breath or chest pain but she reports it is hard for her to take deep breaths due to the the degree of the down pain likewise abdominal distention. ALLERGIES: Please see below. HOME MEDICATIONS: Please see below. PAST MEDICAL HISTORY: 1. History of pulmonary embolism on anticoagulation last intake was this morning 2. Remote history of seizures 3. History of migraines 4. Fatty liver PAST SURGICAL HISTORY: 1. Right knee surgery. 2. Open gastric bypass in 2004 3. Rotator cuff repair in the right shoulder 4. LEEP 5. Laparoscopic cholecystectomy 11/18/2018. PERSONAL/SOCIAL HISTORY: Denies smoking, denies any recent alcohol use. REVIEW OF SYSTEMS: GENERAL: Patient with recent cholecystectomy initially doing well now with abdominal pain since Saturday evening. HEENT: [Denies blurred vision and double vision. Denies ear symptoms. Denies hoarseness]. NECK: [Denies any neck pain]. CARDIOVASCULAR: [Denies chest pain and palpitations]. MUSCULOSKELETAL: [Denies arthralgias, back pain and thrombophlebitis]. SKIN: [Denies rash]. NEUROLOGIC: Reports migrating history no attacks recently, remote history of seizures none recently.. HEMATOLOGY/ONCOLOGY: Patient on Xarelto, last taken this afternoon. HEART: Reports difficulty taking deep breaths due to the abdominal pain. PULMONARY: [Denies chronic cough, dyspnea and wheezing]. GASTROINTESTINAL: See HPI. GENITOURINARY: [Denies dysuria, frequency, hematuria and nocturia]. ENDOCRINE: [Denies polydipsia, polyphagia, polyuria, heat or cold intolerance]. NUTRITION: History of open gastric bypass. PHYSICAL EXAMINATION: VITAL SIGNS: Please see below. GENERAL APPEARANCE: Patient seen moderately uncomfortable though reports fairly comfortable when she is just laying flat on bed. [Awake, alert, oriented]. HEENT: No jaundice or icteric sclerae. CHEST: [No chest wall abnormalities. Normal respiratory motion/effort]. NECK: [Supple. No thyromegaly. No lymphadenopathies]. LUNGS: [Lung sounds are clear to auscultation bilaterally. No wheezing appreciated]. HEART: [No chest wall abnormalities. Heart rate and rhythm are regular with no murmurs]. ABDOMEN: Patient appears moderately distended soft tender on palpation over the mid epigastric area with guarding and mildly tender over the right upper quadrant area quite abdomen. SKIN: [Warm, moist]. EXTREMITIES: [Extremities have no deformities. No edema identified]. NEUROLOGICAL: Awake, alert, oriented. ANCILLARIES: . LABORATORY DATA: Please see below. MICROBIOLOGY: Please see below. IMAGING: CT scan abdomen and pelvis Prior cholecystectomy. Mild fluid in the gallbladder fossa and mild pericholecystic fluid. Fluid is of uncertain etiology but bile leak cannot be excluded. Consider follow up HIDA scan. IMPRESSION AND PLAN: Recent laparoscopic cholecystectomy with postoperative abdominal pain Patient does not look septic though she does have tenderness over the mid epigastric area. I was spoken to Dr. Wells with regards to how the surgery was performed. Concerns this time is whether there is a complication from the cholecystectomy which includes possibility of bile leak also complications from the laparoscopy and lysis of adhesion that she has had previous abdominal surgery with intra-abdominal adhesions involving that of the bowel and possibility of bowel injury. There is no evidence of any free intraperitoneal air to suggest bowel perforation. I reviewed the imaging and I'm a bit concerned about the perihepatic fluid. Certainly this could be from the bleeding towards the end of the procedure but this could also be from bile leakage. I will admit her in the hospital and give her some IV fluid hydration and pain control and set her up for a HIDA scan to rule out possibility of bile leakage. If this is negative then we may need to consider laparoscopy to determine the nature of the fluid versus aspiration of the fluid by radiology depending on her clinical status, improvement in no improvement or worsening of her abdominal pain and possibility of getting septic/developing generalized peritonitis. Vital Signs Vital Signs Date Time Temp Pulse Resp B/P (MAP) Pulse Ox O2 Delivery O2 Flow Rate FiO2 11/24/18 08:00 98.2 81 18 129/78 (95) 99 11/23/18 15:17 Room Air I&Os I&O- Last 24 Hours up to 6 AM 11/24/18 05:59 Output Total 1400 ml Balance -1400 ml Laboratory Data Labs 24H Laboratory Tests 2 11/23/18 16:01: Immature Granulocyte % (Auto) 0.2, White Blood Count 8.9, Red Blood Count 3.96L, Hemoglobin 11.9L, Hematocrit 34.7L, Mean Corpuscular Volume 87.6, Mean Corpuscular Hemoglobin 30.1, Mean Corpuscular Hemoglobin Concent 34.3, Red Cell Distribution Width 13.0, Platelet Count 210, Neutrophils (%) (Auto) 87.1H, Lymphocytes (%) (Auto) 6.7L, Monocytes (%) (Auto) 4.9, Eosinophils (%) (Auto) 0.9, Basophils (%) (Auto) 0.2, Neutrophils # (Auto) 7.7, Lymphocytes # (Auto) 0.6L, Monocytes # (Auto) 0.4, Eosinophils # (Auto) 0.1, Basophils # (Auto) 0.0, Nucleated Red Blood Cells % (auto) 0.0, Anion Gap 8, Glomerular Filtration Rate > 60.0, Calcium Level 9.0, Aspartate Amino Transf (AST/SGOT) 31, Alanine Aminotransferase (ALT/SGPT) 39, Alkaline Phosphatase 92, Total Bilirubin 0.5, Direct Bilirubin 0.1, Total Protein 6.8, Albumin 3.3, Albumin/Globulin Ratio 0.94L, Lipase 82 11/24/18 06:36: Immature Granulocyte % (Auto) 0.5, White Blood Count 11.2H, Red Blood Count 3.84L, Hemoglobin 11.5L, Hematocrit 33.4L, Mean Corpuscular Volume 87.0, Mean Corpuscular Hemoglobin 29.9, Mean Corpuscular Hemoglobin Concent 34.4, Red Cell Distribution Width 13.2, Platelet Count 193, Neutrophils (%) (Auto) 87.1H, Lymphocytes (%) (Auto) 6.9L, Monocytes (%) (Auto) 5.2H, Eosinophils (%) (Auto) 0.2, Basophils (%) (Auto) 0.1, Neutrophils # (Auto) 9.7H, Lymphocytes # (Auto) 0.8L, Monocytes # (Auto) 0.6, Eosinophils # (Auto) 0.0, Basophils # (Auto) 0.0, Nucleated Red Blood Cells % (auto) 0.0, Anion Gap 7L, Glomerular Filtration Rate > 60.0, Calcium Level 8.5, Aspartate Amino Transf (AST/SGOT) 66H, Alanine Aminotransferase (ALT/SGPT) 78, Alkaline Phosphatase 108, Total Bilirubin 0.6, Total Protein 6.2L, Albumin 2.9L, Albumin/Globulin Ratio 0.88L, Blood Urea Nitrogen 9, Creatinine 0.84, Sodium Level 141, Potassium Level 3.6, Chloride Level 110H, Carbon Dioxide Level 24 CBC/BMP Laboratory Tests 11/23/18 16:01 Red Blood Count 3.96 L, Mean Corpuscular Volume 87.6, Mean Corpuscular Hemoglobin 30.1, Mean Corpuscular Hemoglobin Concent 34.3, Red Cell Distribution Width 13.0, Neutrophils (%) (Auto) 87.1 H, Lymphocytes (%) (Auto) 6.7 L, Monocytes (%) (Auto) 4.9, Eosinophils (%) (Auto) 0.9, Basophils (%) (Auto) 0.2, Neutrophils # (Auto) 7.7, Lymphocytes # (Auto) 0.6 L, Monocytes # (Auto) 0.4, Eosinophils # (Auto) 0.1, Basophils # (Auto) 0.0 11/24/18 06:36 Red Blood Count 3.84 L, Mean Corpuscular Volume 87.0, Mean Corpuscular Hemoglobin 29.9, Mean Corpuscular Hemoglobin Concent 34.4, Red Cell Distribution Width 13.2, Neutrophils (%) (Auto) 87.1 H, Lymphocytes (%) (Auto) 6.9 L, Monocytes (%) (Auto) 5.2 H, Eosinophils (%) (Auto) 0.2, Basophils (%) (Auto) 0.1, Neutrophils # (Auto) 9.7 H, Lymphocytes # (Auto) 0.8 L, Monocytes # (Auto) 0.6, Eosinophils # (Auto) 0.0, Basophils # (Auto) 0.0, Calcium Level 8.5, Aspartate Amino Transf (AST/SGOT) 66 H, Alanine Aminotransferase (ALT/SGPT) 78, Alkaline Phosphatase 108, Total Bilirubin 0.6, Total Protein 6.2 L, Albumin 2.9 L Home Medications Scheduled Aspirin (Aspir 81) 81 Mg Tab, 81 MG PO DAILY, (Reported) Calcium Carbonate/Vitamin D3 (Calcium 600-Vit D3 800 Tablet) 1 Tab Tab, 1 TAB PO BID, (Reported) Carbamazepine (Carbamazepine ER) 200 Mg Tab.er.12h, 400 MG PO BID, (Reported) Cetirizine HCl (Cetirizine HCl) 10 Mg Tab, 10 MG PO DAILY, (Reported) Dexlansoprazole (Dexilant) 60 Mg Cap, 60 MG PO DAILY, (Reported) Duloxetine Hcl (Duloxetine HCl) 30 Mg Cap, 90 MG PO QHS, (Reported) Multivitamin (Multivitamins) 1 Each Capsule, 1 CAP PO BID, (Reported) Rivaroxaban (Xarelto) 20 Mg Tab, 20 MG PO DAILY, (Reported) Topiramate (Topiramate) 50 Mg Tablet, 150 MG PO BID, (Reported) Trazodone HCl (Trazodone HCl) 100 Mg Tab, 200 MG PO QHS, (Reported) [ProDHA Eye] , 1,000 MG PO BID, (Reported) 960 mg DHA per serving Scheduled PRN Calcium Carbonate (Tums) 200 Mg Tab.chew, 400 MG PO QID PRN for COUGH AND CONGESTION, (Reported) Hydrocodone/Acetaminophen (Hydrocodone-Acetamin 5-325 mg) 1 Each Tablet, 1-2 TABS PO Q4-6HP PRN for PAIN, (Reported) Hydroxyzine Pamoate (Vistaril) 25 Mg Cap, 25 MG PO QHS PRN for INSOMNIA, (Reported) Ondansetron (Ondansetron Odt) 8 Mg Tab, 8 MG PO Q6H PRN for NAUSEA, (Reported) Rizatriptan Benzoate (Rizatriptan) 10 Mg Tab.rapdis, 10 MG PO PRN PRN for MIGRAINE, (Reported) Allergies Coded Allergies: Penicillins (Verified Allergy, Intermediate, hives, 11/18/18) Quinolones (Verified Allergy, Intermediate, hives, 11/18/18) clindamycin (Verified Allergy, Intermediate, lip swelling, 11/18/18) latex (Verified Allergy, Intermediate, RASH, 11/18/18) bee venom protein (honey bee) (Verified Adverse Reaction, Unknown, swelling at site, 10/2/19) A-FIB/CHADSVASC A-FIB History Current/History of A-Fib/PAF?: No Current PO Anticoag Therapy: Yes NGUYEN MEJIAS MD Nov 24, 2018 10:18
[2018-11-24] MEDS ORDERED: SUCRALFATE SUSP 1GM/10ML UD PO SCH (12:00)
--- NOTE | 2018-11-24 12:16 | IPN ---
DATE: 11/24/2018 The patient was seen earlier this morning for a followup concerning hospitalization for her abdominal pain. Her abdominal pain seems worse this morning and in general the majority of it is all across her abdomen, but she still does complain of some right upper quadrant discomfort. She had some free fluid on her studies yesterday in the right subcostal area and followup liver function tests were relatively normal except a slight bump in her aspartate aminotransferase (AST) and her alanine transaminase (ALT) also went up but was not "abnormal." In general, the patient's white count also did bump this morning. I did order a followup KUB and upright. Did not see any free air. Did see the contrast going into the colon from the CAT scan from yesterday suggesting that this is unlikely a small bowel injury. A HIDA scan had been ordered and just has finished. I reviewed this with the radiologist. They still have not written the report but verbally and what I see on the study with the radiologist is flow into the gallbladder fossa and then it goes around the liver edge consistent with a cystic duct leak. In general, the patient is still having some abdominal pain at this time. Unfortunately, she has had a previous gastric bypass and thus performing endoscopic retrograde cholangiopancreatography (ERCP) here is not a reasonable option for her and thus, I would like to transfer her to [place] and will see if we can expedite this as soon as possible. I have contacted a educational institution president in [place] and they are willing to evaluate the patient but feel that bariatric surgery would be most appropriate to transfer and thus, I will attempt to see if we can get to the bariatric surgeons, possibly may be a hospitalist admission and I will defer to their judgment which service they would like to put this on. In any case, we will see if we can make her more comfortable. At this point, there was not a significant amount of fluid on the CAT scan last night to adequately "drain" and thus proceeding with a percutaneous drainage prior to her being transferred down was not indicated from the radiologist standpoint. In any case, we will try to expedite her transfer as soon as possible.
--- NOTE | 2018-11-24 12:25 | REP ---
HEPATOBILIARY SCAN: HISTORY: Rule out bile leak. 1 week status post cholecystectomy with right upper quadrant pain. TECHNIQUE: 6.6 mCi technetium 99m mebrofenin is injected and sequential anterior abdominal images are acquired. Comparison is made with CT study November 23, 2018. FINDINGS: The initial hepatocellular parenchymal uptake phase is normal and homogeneous. Intra and extrahepatic bile ducts are first visualized on the 10-minute image along with some reflux into the stomach and small intestine. At 15 minutes, there is uptake in what appears to be the gallbladder fossa. Subsequent images demonstrate washout from the liver parenchyma into the subhepatic peritoneal space consistent with a bile leak. The majority of the bile stream appears to enter the small intestine. IMPRESSION: The study is positive for a bile leak in the gallbladder fossa. The majority of the bile stream there is a few progress through the small intestine. Electronically Signed by Augie Farah MD 11/24/2018 01:55 P
[2018-11-24] MEDS ORDERED: HYDROMORPHONE HCL 0.5 MG/ 0.5 ML SYRINGE (J1170 PER 1) IV PRN (12:30)
[2018-11-24] MEDS ORDERED: OCTREOTIDE ACETATE 100 MCG/ML VIAL (J2354) IV SCH (13:00)
[2018-11-24 14:20] VITALS: BP 132/74
[2018-11-24 14:44] VITALS: BP 132/74
--- NOTE | 2018-11-24 16:56 | REP ---
Acute abdominal series: Three views. History: Abdomen pain. Comparison chest x-ray April 22, 2017. Findings: Upright chest radiograph is normal. There is no evidence of infiltrate or free subdiaphragmatic air. Heart size is normal. Supine and erect views of the abdomen show clips in the right upper quadrant post cholecystectomy and sutures in the left mid and upper abdomen. There is relatively low density CT contrast in the right colon. There are a few air-fluid levels in the right colon and there is an air-fluid level in one loop of small bowel. No evidence of obstruction or free air. Impression: Surgical clips bilaterally in the abdomen. CT contrast in the colon. No evidence of obstruction or free air. Electronically Signed by Augie Farah MD 11/24/2018 06:40 P
== END 2018-11-24 14:45 | disposition short-term general hospital (02) ==
LOC: M ED 15:16 → M ED INP 15:17 → M PED 21:53
PROVIDERS: ADMIT Surgery; ATTEND Surgery
DX: G89.18 Other acute postprocedural pain (principal); K91.89 Other postprocedural complications and disorders of digestive system; Z98.84 Bariatric surgery status; Z79.82 Long term (current) use of aspirin; Z79.899 Other long term (current) drug therapy; Z91.040 Latex allergy status; Z91.030 Bee allergy status; Z88.0 Allergy status to penicillin; Z88.1 Allergy status to other antibiotic agents
CPT/HCPCS: 36415; 74021; 74177; 78226; 80048; 80053; 80076; 83690; 85025; 93005; 96361; 96365; 96366; 96375; 96376; 99285; A9537; C9113; J0696; J1170; J1885; J2060; J2270; J2354; J2405; Q9963; Q9967

== ENCOUNTER 2019-02-19 07:19 | Emergency (ER) | payer OTHER ==
[~2019-02-19] VITALS: Ht 162.6 cm; Wt 83.3 kg
[~2019-02-19 07:19] MED LIST changes: +HYDR-4571 PO; +TUMS500C PO; +[UNRECOGNIZED DRUG - OTHER] PO
[2019-02-19] MEDS ORDERED: MECLIZINE 25 MG TABLET PO ONE (08:00)
[2019-02-19 08:06] LABS: BASO % 0.8 % (0.0-1.0); EOS # 0.3 10^3/uL (0.0-0.5); HEMATOCRIT 38.6 % (36.0-47.0); HEMOGLOBIN 12.2 g/dl (12.0-15.5); LYMPH # 1.6 10^3/uL (1.5-5.0); LYMPH % 33.5 % (24.0-44.0); MEAN CORPUSCULAR HEMOGLOBIN 28.7 pg (27.0-33.0); MEAN CORPUSCULAR HGB CONC 31.6 g/dl (32.0-36.5); MEAN CORPUSCULAR VOLUME 90.8 fl (80.0-96.0); MONO # 0.3 10^3/uL (0.0-0.8); NEUTROPHILS # 2.5 10^3/uL (1.5-8.5); NEUTROPHILS % 52.5 % (36.0-66.0); PLATELET COUNT, AUTOMATED 228 10^3/uL (150-450); RED BLOOD COUNT 4.25 10^6/uL (4.00-5.40); WHITE BLOOD COUNT 4.8 10^3/uL (4.0-10.0)
[2019-02-19 08:34] LABS: ALBUMIN 3.9 GM/DL (3.2-5.2); ALT/SGPT 80 U/L (12-78); BILIRUBIN,DIRECT 0.1 MG/DL (0.0-0.2); BILIRUBIN,TOTAL 0.3 MG/DL (0.2-1.0); BLOOD UREA NITROGEN 11 MG/DL (7-18); CALCIUM LEVEL 8.5 MG/DL (8.5-10.1); CARBON DIOXIDE LEVEL 24 MEQ/L (21-32); CHLORIDE LEVEL 110 MEQ/L (98-107); CK-MB VALUE MASS 1.1 NG/ML (<3.6); CPK CREATINE PHOSPHOKINASE 113 U/L (26-192); CREATININE FOR GFR 1.07 MG/DL (0.55-1.30); FREE T4 0.97 NG/DL (0.76-1.46); GLOMERULAR FILTRATION RATE 56.7 (>51); GLUCOSE, FASTING 93 MG/DL (70-100); MB/CK RELATIVE INDEX 0.97 (< OR =4); POTASSIUM SERUM 3.9 MEQ/L (3.5-5.1); SODIUM LEVEL 141 MEQ/L (136-145); TOTAL PROTEIN 7.1 GM/DL (6.4-8.2); TROPONIN I < 0.02 NG/ML (< 0.10)
[2019-02-19] MEDS ORDERED: VIMP200T PO (08:49)
[2019-02-19] MEDS ORDERED: COUM1TAB17 (08:49)
[2019-02-19] MEDS ORDERED: MECL-86 PO (11:15)
[2019-02-19 11:29] VITALS: BP 112/59
--- NOTE | 2019-02-19 11:29 | REP ---
INDICATION: Dizziness PROCEDURE: CT head without contrast COMPARISON STUDIES: No prior similar studies FINDINGS: No acute bleed or acute large vessel territorial infarct. Ventricles, cisterns and sulci within normal limits. No mass effect or midline shift. No abnormal fluid collections. Paranasal sinuses and mastoid air cells are clear. IMPRESSION: No acute findings. Normal examination. Electronically Signed by Rogerio Hurtado MD 02/19/2019 09:23 A
[2019-02-19 11:36] LABS: CARBAMAZEPINE (TEGRETOL) LEVEL 5.4 UG/ML (4.0-10.0); FOLATE > 24.0 NG/ML; VITAMIN B12 LEVEL 570 PG/ML
--- NOTE | 2019-02-19 19:08 | ECGEPIP ---
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
[2019-02-24 00:06] LABS: LACOSAMIDE LEVEL 15.6 ug/mL (5.0-10.0); TOPIRAMATE LEVEL 9.4 ug/mL (2.0-25.0)
== END 2019-02-19 11:31 | disposition home or self-care (01) ==
LOC: M ED 07:19
DX: H81.399 Other peripheral vertigo, unspecified ear (principal); I45.19 Other right bundle-branch block; R51 Headache; Z86.711 Personal history of pulmonary embolism; Z79.82 Long term (current) use of aspirin; Z79.01 Long term (current) use of anticoagulants; Z79.899 Other long term (current) drug therapy; Z88.0 Allergy status to penicillin; Z88.8 Allergy status to other drugs, medicaments and biological substances; Z88.1 Allergy status to other antibiotic agents; Z91.040 Latex allergy status; Z91.030 Bee allergy status

== ENCOUNTER → 2019-03-09 | Outpatient (CLI) | payer OTHER ==
[~2019-03-09] MED LIST changes: +COUM1TAB17; +MECL-86 PO; -TRAZ-163 PO; +TRAZ-257 PO; +VIMP200T PO
[2019-03-09 14:26] LABS: EOS # 0.1 10^3/uL (0.0-0.5); EOS % 1.9 % (0.0-3.0); HEMATOCRIT 37.2 % (36.0-47.0); HEMOGLOBIN 11.9 g/dl (12.0-15.5); LYMPH # 1.4 10^3/uL (1.5-5.0); LYMPH % 34.4 % (24.0-44.0); MEAN CORPUSCULAR HEMOGLOBIN 28.1 pg (27.0-33.0); MEAN CORPUSCULAR VOLUME 87.9 fl (80.0-96.0); MONO # 0.3 10^3/uL (0.0-0.8); MONO % 6.9 % (0.0-5.0); NEUTROPHILS # 2.3 10^3/uL (1.5-8.5); NEUTROPHILS % 55.6 % (36.0-66.0); PLATELET COUNT, AUTOMATED 239 10^3/uL (150-450); RED BLOOD COUNT 4.23 10^6/uL (4.00-5.40); WHITE BLOOD COUNT 4.2 10^3/uL (4.0-10.0)
[2019-03-09 14:50] LABS: ALBUMIN 3.7 GM/DL (3.2-5.2); BILIRUBIN,TOTAL 0.6 MG/DL (0.2-1.0); CALCIUM LEVEL 9.1 MG/DL (8.5-10.1); CREATININE FOR GFR 1.13 MG/DL (0.55-1.30); GLOMERULAR FILTRATION RATE 53.2 (>51); POTASSIUM SERUM 3.9 MEQ/L (3.5-5.1); TOTAL PROTEIN 6.8 GM/DL (6.4-8.2)
== END ==
LOC: M LAB 12:43
PROVIDERS: ATTEND Psychiatry & Neurology Neurology
DX: R56.9 Unspecified convulsions (principal)

== ENCOUNTER 2019-05-02 21:45 | Observation (INO) | payer OTHER ==
[~2019-05-02] VITALS: Ht 162.6 cm; Wt 79.8 kg
[~2019-05-02 21:45] MED LIST changes: +ATORVASTATIN 10 MG TAB PO SCH; +DULoxetine 30 MG CAP (CYMBALTA) PO SCH
[2019-05-02 22:33] LABS: BASO % 0.7 % (0.0-1.0); EOS # 0.2 10^3/uL (0.0-0.5); HEMOGLOBIN 11.8 g/dl (12.0-15.5); LYMPH # 1.5 10^3/uL (1.5-5.0); LYMPH % 24.4 % (24.0-44.0); MEAN CORPUSCULAR HEMOGLOBIN 27.6 pg (27.0-33.0); MEAN CORPUSCULAR HGB CONC 32.8 g/dl (32.0-36.5); MEAN CORPUSCULAR VOLUME 84.1 fl (80.0-96.0); MONO # 0.4 10^3/uL (0.0-0.8); MONO % 6.2 % (0.0-5.0); NEUTROPHILS # 3.9 10^3/uL (1.5-8.5); NEUTROPHILS % 65.4 % (36.0-66.0); PLATELET COUNT, AUTOMATED 231 10^3/uL (150-450); RED BLOOD COUNT 4.28 10^6/uL (4.00-5.40); WHITE BLOOD COUNT 5.9 10^3/uL (4.0-10.0)
[2019-05-02 22:45] LABS: APPEARANCE, URINE CLEAR (CLEAR); BACTERIA, URINE AUTO NEGATIVE (NEGATIVE); BILIRUBIN, URINE AUTO NEGATIVE (NEGATIVE); BLOOD, URINE BLOOD NEGATIVE (NEGATIVE); COLOR, URINE YELLOW (YELLOW); GLUCOSE, URINE (UA) AUTO NEGATIVE (NEGATIVE); KETONE, URINE AUTO NEGATIVE (NEGATIVE); LEUKOCYTE ESTERASE, URINE AUTO TRACE (NEGATIVE); MUCUS, URINE SMALL (NEGATIVE); NITRITE, URINE AUTO NEGATIVE (NEGATIVE); PROTEIN, URINE AUTO NEGATIVE (NEGATIVE); RBC, URINE AUTO 1 /HPF (0-3); SPECIFIC GRAVITY URINE AUTO 1.012 (1.002-1.035); SQUAMOUS EPITHELIAL CELL UR AU 0 /HPF (0-6); UROBILINOGEN, URINE AUTO 0.2 mg/dL (0.0-2.0); WBC, URINE AUTO 2 /HPF (0-3)
[2019-05-02] MEDS ORDERED: GI COCKTAIL 50ML BTL(HYOSCYAMINE/MAALOX/LIDOCAINE VISCOUS)(1:3:1) PO ONE (22:45)
[2019-05-02] MEDS ORDERED: MORPHINE 4 MG/ML 1ML VIAL/SYRINGE (J2270) IV ONE ×2 (22:45→23:15)
[2019-05-02] MEDS ORDERED: NS 500 ML IV ONE (22:45)
[2019-05-02] MEDS ORDERED: PANTOPRAZOLE 40MG INJ (PROTONIX) (C9113) IV ONE (22:45)
[2019-05-02 22:50] LABS: INR 1.27; PARTIAL THROMBOPLASTIN TIME 28.3 SECONDS (25.0-38.4); PROTHROMBIN TIME 15.6 SECONDS (11.8-14.0)
[2019-05-02] MEDS: GASTROGRAFIN SOLUTION 30ML PO SCH ×2 (22:57→23:30)
[2019-05-02 23:03] LABS: ALBUMIN 3.4 GM/DL (3.2-5.2); ALT/SGPT 33 U/L (12-78); BILIRUBIN,DIRECT 0.1 MG/DL (0.0-0.2); BILIRUBIN,TOTAL 0.3 MG/DL (0.2-1.0); BLOOD UREA NITROGEN 14 MG/DL (7-18); CALCIUM LEVEL 8.5 MG/DL (8.5-10.1); CARBON DIOXIDE LEVEL 22 MEQ/L (21-32); CHLORIDE LEVEL 110 MEQ/L (98-107); CK-MB VALUE MASS < 1.0 NG/ML (<3.6); CPK CREATINE PHOSPHOKINASE 82 U/L (26-192); GLOMERULAR FILTRATION RATE 54.9 (>51); GLUCOSE, FASTING 87 MG/DL (70-100); LIPASE 343 U/L (73-393); MB/CK RELATIVE INDEX 1.22 (< OR =4); POTASSIUM SERUM 3.9 MEQ/L (3.5-5.1); SODIUM LEVEL 140 MEQ/L (136-145); TOTAL PROTEIN 6.7 GM/DL (6.4-8.2); TROPONIN I < 0.02 NG/ML (< 0.10)
[2019-05-02] MEDS ORDERED: ISOVUE-370 76% 100ML VIAL (Q9967) As Ordered ONE (23:18)
--- NOTE | 2019-05-03 | REPVR ---
PROCEDURE INFORMATION: Exam: CT Abdomen And Pelvis With Contrast Exam date and time: 05/02/2019 11:25 PM Age: 53 years old Clinical indication: Abdominal pain; Epigastric TECHNIQUE: Imaging protocol: Computed tomography of the abdomen and pelvis with intravenous contrast. Axial, coronal and sagittal reformatted images were created and reviewed. Radiation optimization: All CT scans at this facility use at least one of these dose optimization techniques: automated exposure control; mA and/or kV adjustment per patient size (includes targeted exams where dose is matched to clinical indication); or iterative reconstruction. Contrast material: ISOVUE 370; Contrast volume: 100 ml; Contrast route: IV; Other contrast: Oral, gastrografin; COMPARISON: CT ABD/PEL W/IV ORAL CONTRAS 11/23/2018 6:38 PM FINDINGS: Pleural space: Trace loculated right pleural fluid. Liver: Unremarkable. Gallbladder and bile ducts: Status post cholecystectomy. Mild central biliary ductal dilatation, likely postsurgical. Pancreas: Unremarkable. Spleen: Unremarkable. Adrenals: Unremarkable. Kidneys and ureters: 9 mm left renal cyst. No radiodense calculi. No hydronephrosis. Stomach and bowel: Status post gastric bypass surgery. Underdistention and/or mild wall thickening of the small bowel loops in the lower abdomen and pelvis. No obstruction. No pneumatosis. Appendix: Appendix not identified with certainty but no right lower quadrant inflammatory change to suggest acute appendicitis. Intraperitoneal space: Small free pelvic fluid and moderate infiltration the mesenteric fat in the lower abdomen and pelvis. No organized fluid collection. No free air. Vasculature: Mild atherosclerotic disease. No aneurysm or dissection. Diffuse engorgement of the mesenteric vasculature in the lower abdomen and pelvis. Lymph nodes: Small mesenteric lymph nodes, likely reactive. No pathologically enlarged lymph nodes. Bladder: Unremarkable. Reproductive: Unremarkable. Bones/joints: No acute osseous abnormality. Osteopenia. Mild degenerative changes. Soft tissues: Unremarkable. IMPRESSION: 1. Underdistention and/or mild wall thickening of the small bowel loops in the lower abdomen and pelvis with moderate associated mesenteric engorgement and infiltration of the mesenteric fat. Query nonspecific enteritis. 2. Additional findings, as above. Electronically signed by: Heriberto Moreno On 05/03/2019 00:00:09 AM
[2019-05-03] MEDS ORDERED: NS 500 ML IV ONE (00:15)
[2019-05-03] MEDS ORDERED: HYDROMORPHONE HCL 0.5 MG/ 0.5 ML SYRINGE (J1170 PER 1) IV ONE (01:00)
[2019-05-03] MEDS ORDERED: KETAMINE HCL IV ONE (01:15)
[2019-05-03] MEDS ORDERED: NS IV ONE (01:15)
[2019-05-03] MEDS ORDERED: XARE20TA PO (01:40)
[2019-05-03] MEDS ORDERED: LAMO100T3 PO (01:40)
[2019-05-03] MEDS ORDERED: ATOR1TAB19 PO (01:40)
[2019-05-03] MEDS ORDERED: MECL-86 PO (01:41)
--- NOTE | 2019-05-03 01:49 | HPEPDOC ---
[facility] Medical History & Physical Date of Admission May 03, 2019 Date of Service: May 03, 2019 Attending Physician: LINN NUR MD History and Physical CHIEF COMPLAINT: 1 day history of abdominal pain HISTORY OF PRESENT ILLNESS: Patient is a 53-year-old female who presents to the emergency department the evening of 05/02/2019 with a chief complaint of abdominal pain for approximately 24 hours. Patient carries a past medical history significant for migraine headaches, focal seizures, GERD, depression, bilateral pulmonary embolism anticoagulation was a relative, and open gastric bypass. Patient states that her pain began at approximately 1300 on 05/01/2019 in her mid epigastrium, described as a localized dull cramp. Patient reports that she had just finished eating a sandwich when she first noticed the pain. Her discomfort grew throughout the remainder of the day. She used [id number] Tums and Gas-X with minimal relief. Patient states that she was able to eat dinner and reported mild nausea without any episodes of emesis. On the morning of presentation, patient states that her pain continued to worsen and become more generalized throughout her middle abdomen. She did have one regular, well formed bowel movement the morning of presentation, without any noted melena or hematochezia. In the early evening, patient states that her pain grew to 10 out of 10 and, at the behest of her , present emergency department for f urther evaluation and management. In the emergency department, patient was found to be afebrile. She had a pulse of 74, respiratory rate 18. Her blood pressure was 146/75 and she was maintaining 100% on room air. CBC did not demonstrate any leukocytosis. H/H of 11.8/36. CMP was without any significant abnormalities. BUN/CR of 14/1.10. Liver enzymes including bilirubin, alkaline phosphatase and lipase were within normal limits. Troponins negative. Urine positive for trace LE. A CT abdomen/pelvis was performed demonstrating under distention and/or mild wall thickening of the small bowel loops in the lower abdomen and pelvis with moderate associated mesenteric engorgement and infiltration of the mesenteric fat. Patient was initially treated with a GI cocktail, 4 mg of morphine and protonix. Reportedly, her pain persisted which required an additional 4 mg of morphine. Despite the aforementioned medications, patient reported that her pain remained a 10/10. Given this, she was given 1 mg of Dilaudid, which brought her pain down to a 5 out of 10. Lastly, she was also given a low dose of ketamine, which ultimately reduced her pain to 0. Given patient's extensive pain/comfort, and disproportion to both exam and clinical studies, patient will be admitted for overnight observation with hopeful discharge in the morning. 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 Denies nicotine use for greater than 10 years ETOH: Denies alcohol use Illicit drug use: Denies illicit drug use including IV drugs and marijuana FAMILY HISTORY: Father: Unknown Mother: , cervical cancer with metastasis, age 40 for Siblings: Half siblings, obesity and hypertension, alcoholism Children: Son, , congenital heart defect. Daughter, alive, bipolar and OCD ALLERGIES: Please see below. REVIEW OF SYSTEMS: CONSTITUTIONAL: Patient denies any recent history of fevers, chills, night sweats, changes in weight or generalized fatigue HEENT: Patient carries a history of migraines but denies any recent headaches. Patient does have macular degeneration, though she denies any changes to her vision recently. No changes to hearing or ear pain. No nasal congestion or rhinorrhea. No sore throat or difficulty swallowing CARDIOVASCULAR: Denies any chest pain, discomfort, palpitations or an appropriate tachycardia. Denies any lower extremity swelling RESPIRATORY: No cough or wheeze. Patient denies orthopnea or paroxysmal nocturnal dyspnea GASTROINTESTINAL: Reports a 24-hour history of midepigastric pain and discomfort, we see HPI. Of note, patient has had a bowel movement 2, regular, since pain began. No melena or hematochezia. She has continued to eat without difficulty though she does report some intermittent bouts of nausea. No history of emesis. GENITOURINARY: No dysuria, urgency, hesitancy or increased frequency, no hematuria SKIN: No new skin lesions or rashes. MUSCULOSKELETAL: Denies any current muscle ache, joint effusions or joint pains NEUROLOGICAL: Denies any weakness, paresthesias of her hands feet arms or legs. PSYCHIATRIC: Patient carries a history of depression. HEMATOLOGIC/LYMPHATIC: She is anticoagulated with Xarelto for her history of bilateral PEs. She denies any recent history of bruising or bleeding. HOME MEDICATIONS: Please see below. PHYSICAL EXAMINATION: VITAL SIGNS: Temperature 96.5, pulse 64, respiratory rate 16, blood pressure 122/71 (88), pulse oximetry 99 % on room air. GENERAL APPEARANCE: Patient was interviewed and examined the emergency department. She was found to be seated comfortably in the examination room. She was not in any acute distress. She does not appear to be in pain. No thriving or thrashing. She was alert and oriented 3. She was able to answer questions appropriately accurately participate in her examination and care HEENT: Normocephalic, atraumatic, EOMI, PERRLA, no nasal congestion or rhinorrhea, no posterior pharyngeal erythema, tonsillar swelling or exudate. CARDIOVASCULAR: Regular rate and rhythm, normal S1 and S2 without any murmur. No JVD appreciated LUNGS: Clear to auscultation bilaterally, no wheezing rales or rhonchi. Good air movement throughout. Chest rises symmetric. ABDOMEN: Postoperative scarring and straight noted. Very mild tenderness periumbilically, and tender palpation in other quadrants.. No guarding or rebound. Bowel sounds throughout. Negative Carnett's sign. MUSCULOSKELETAL: Able to move all extremities equally and independently. No obvious effusions noted. EXTREMITIES: No lower extremity edema or calf tenderness bilaterally. Both radial and posterior tibial pulses 2+ bilaterally NEUROLOGICAL: Awake, alert and oriented. Cranial nerves II through XII grossly intact. Focal neurologic deficits noted. Strength 5 out of 5 in both upper and lower extremities. No evidence of dysarthria or aphasia. No facial droop. PSYCHIATRIC: Mood and affect are appropriate given patient's current medical condition LABORATORY DATA: See below. IMAGING: CT abdomen/pelvis (05/02/2019): Under distention and/or mild wall thickening of the small bowel loops in the lower abdomen and pelvis with moderate associated mesenteric engorgement and infiltration of the mesenteric fat. Cautery non- specific enteritis. ASSESSMENT: Patient is a 53-year-old female, presents to emergency department with 24 hour history of generalized abdominal pain. Stable vital signs with benign laboratory workup. CT imaging of her abdomen did demonstrate some nonspecific gastroenteritis. Patient's pain is extremely difficult to control in the emergency department requiring 2 doses of 4 mg of morphine, 1 mg of Dilaudid and a small dose of ketamine. Given the severity of her pain, despite negative workup, patient will be admitted for overnight observation and discharged home pending clinical improvement. PLAN: #Refractory abdominal pain, suspect secondary to gastroenteritis Patient is af ebrile, no leukocytosis. Vitals are stable. Negative CBC and CMP. No lipase, alkaline phosphatase, bilirubin, AST/ALT elevation. CT of the patient's abdomen and pelvis was significant for findings consistent with gastroenteritis. At the time of admission, patient was noted to be extremely comfortable with a relatively benign physical examination. -Patient will be admitted for overnight observation and continues pain management. -Patient has received 12 morphine equivalents in the emergency department. Patient's pain level will be monitored closely for continued resolution. -Normal saline at maintenance 120 ml/hr -Zofran for nausea when necessary -Repeat CBC and CMP in a.m. -D/C home if clinical resolution/improvement. #History of bilateral PE Continue patient's home Xarelto #Depression Continue patient's home duloxetine #History of partial seizures Patient states that 2 weeks prior to presentation, she stopped Vimpat and began Lamictal Continue home Lamictal #Insomnia Will hold trazedone and hydroxyzine given recently administered pain medication #Migraine Continue topiramate for prophylaxis Maxalt-STACKER Q4when necessary #Dyslipidemia Continue home statin #GERD Patient received IV pantoprazole in the emergency department Continue home PPI in am #BMI of 29.9 Patient is status post open gastric bypass Elevated BMI complicating care Recommend diet and lifestyle consisting of 30-40 minutes of physical activity 3- 4 times weekly. CODE STATUS: Full code DVT PROPHYLAXIS: Currently anticoagulated for DVTs with Xarelto DISPOSITION: Anticipate a.m. discharge pending clinical improvement TEACHING ATTESTATION: I performed a history and physical exam of the patient and discussed her management with the resident. I reviewed the resident's note and agree with the documented findings and plan of care as written above. 53-year-old female with multiple medical problems presents to the ER for epigastric pain over the last 24-48 hrs. Multiple attempts in the ER for charly quate pain control was unsuccessful. Will admit patient for observation for intractable abdominal pain at this time. Likely cause of her abdominal pain is due to flare of her gastritis as imaging and labs appear to be normal. Recent EGD/colonoscopy within the past year revealed no gross abnormalities or ulcers as per patient. We'll start IV fluids and continue with pain control for now. She is feeling much better after her dose of ketamine in the ER. Abd exam is benign. If pt feels better in the AM, can be discharged in the morning. Rest of plan as per above. Vital Signs Vital Signs Date Time Temp Pulse Resp B/P (MAP) Pulse Ox O2 Delivery O2 Flow Rate FiO2 05/03/19 01:04 16 Room Air 05/03/19 00:15 64 122/71 (88) 87 05/02/19 21:46 96.5 Laboratory Data Labs 24H Laboratory Tests 2 05/02/19 22:21: Immature Granulocyte % (Auto) 0.3, Neutrophils (%) (Auto) 65.4, Lymphocytes (%) (Auto) 24.4, Monocytes (%) (Auto) 6.2H, Eosinophils (%) (Auto) 3.0, Basophils (%) (Auto) 0.7, Neutrophils # (Auto) 3.9, Lymphocytes # (Auto) 1.5, Monocytes # (Auto) 0.4, Eosinophils # (Auto) 0.2, Basophils # (Auto) 0.0, Nucleated Red Blood Cells % (auto) 0.0, Prothrombin Time 15.6H, Prothromb Time International Ratio 1.27, Activated Partial Thromboplast Time 28.3, Anion Gap 8, Glomerular Filtration Rate 54.9, Calcium Level 8.5, Total Bilirubin 0.3, Direct Bilirubin 0.1, Aspartate Amino Transf (AST/SGOT) 24, Alanine Aminotransferase (ALT/SGPT) 33, Alkaline Phosphatase 83, Total Creatine Kinase 82, Creatine Kinase MB < 1.0, Creatine Kinase MB Relative Index 1.22, Troponin I < 0.02, Total Protein 6.7, Albumin 3.4, Albumin/Globulin Ratio 1.03, Lipase 343 05/02/19 22:24: Urine Color YELLOW, Urine Appearance CLEAR, Urine pH 6.0, Urine Specific [place] 1.012, Urine Protein NEGATIVE, Urine Glucose (Auto)(UA) NEGATIVE, Urine Ketones (Auto) NEGATIVE, Urine Blood NEGATIVE, Urine Nitrite NEGATIVE, Urine Bilirubin NEGATIVE, Urine Urobilinogen 0.2, Urine Leukocyte Esterase (Auto) TRACEH, Urine WBC (Auto) 2, Urine RBC (Auto) 1, Urine Hyaline Casts (Auto) 1, Urine Bacteria (Auto) NEGATIVE, Urine Squamous Epithelial Cells 0, Urine Mucus (Auto) SMALL, Urine Sperm (Auto) CBC/BMP Laboratory Tests 05/02/19 22:21 Home Medications Scheduled Aspirin (Aspir 81) 81 Mg Tab, 81 MG PO DAILY Atorvastatin Calcium (Atorvastatin Calcium) 10 Mg Tablet, 10 MG PO QHS Calcium Carbonate/Vitamin D3 (Calcium 600-Vit D3 800 Tablet) 1 Tab Tab, 1 TAB PO BID Cetirizine HCl (Cetirizine HCl) 10 Mg Tab, 10 MG PO DAILY Dexlansoprazole (Dexilant) 60 Mg Cap, 60 MG PO DAILY Duloxetine Hcl (Duloxetine HCl) 30 Mg Cap, 90 MG PO QHS Lamotrigine (Lamotrigine) 100 Mg Tablet, 50 MG PO BID TAKE FOR 3 DAYS THEN 1 TABLET BID. STARTED 50MG 05/02/2019 Multivitamin (Multivitamins) 1 Each Capsule, 1 CAP PO BID Rivaroxaban (Xarelto) 20 Mg Tablet, 20 MG PO DAILY Topiramate (Topiramate) 50 Mg Tablet, 150 MG PO BID Trazodone HCl (Trazodone HCl) 100 Mg Tab, 200 MG PO QHS [ProDHA Eye] , 1,000 MG PO BID 960 mg DHA per serving Scheduled PRN Hydroxyzine Pamoate (Vistaril) 25 Mg Cap, 25 MG PO QHS PRN for INSOMNIA Ondansetron (Ondansetron Odt) 8 Mg Tab, 8 MG PO Q6H PRN for NAUSEA Rizatriptan Benzoate (Rizatriptan) 10 Mg Tab.rapdis, 10 MG PO PRN PRN for MIGRAINE Allergies Coded Allergies: Penicillins (Verified Allergy, Intermediate, hives, 11/18/18) Quinolones (Verified Allergy, Intermediate, hives, 11/18/18) clindamycin (Verified Allergy, Intermediate, lip swelling, 11/18/18) latex (Verified Allergy, Intermediate, RASH, 11/18/18) bee venom protein (honey bee) (Verified Adverse Reaction, Unknown, swelling at site, 11/12/18) A-FIB/CHADSVASC A-FIB History Current/History of A-Fib/PAF?: No DEN GILLESPIE DO May 03, 2019 01:48 LINN NUR MD May 03, 2019 03:12
[2019-05-03] MEDS ORDERED: NS 1,000 ML IV SCH (02:00)
[2019-05-03] MEDS ORDERED: MAALOX 30 ML SUSP *UDC PO PRN (02:00)
[2019-05-03] MEDS ORDERED: ACETAMINOPHEN TAB 650MG DOSE (2X325MG) PO PRN (02:00)
[2019-05-03] MEDS ORDERED: ONDANSETRON 4MG/2ML VIAL (J2405) IV ONE (02:00)
[2019-05-03] MEDS ORDERED: ONDANSETRON 4MG/2ML VIAL (J2405) IV PRN (02:15)
[2019-05-03] MEDS ORDERED: RIZATRIPTAN MLT 10 MG TAB PO PRN (02:30)
[2019-05-03 04:20] VITALS: BP 127/66
[2019-05-03 06:43] LABS: HEMATOCRIT 32.1 % (36.0-47.0); HEMOGLOBIN 10.5 g/dl (12.0-15.5); MEAN CORPUSCULAR HGB CONC 32.7 g/dl (32.0-36.5); MEAN CORPUSCULAR VOLUME 85.6 fl (80.0-96.0); PLATELET COUNT, AUTOMATED 180 10^3/uL (150-450); RED BLOOD COUNT 3.75 10^6/uL (4.00-5.40); WHITE BLOOD COUNT 4.8 10^3/uL (4.0-10.0)
--- NOTE | 2019-05-03 06:48 | ECGEPIP ---
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
[2019-05-03 06:59] LABS: ALBUMIN 3.2 GM/DL (3.2-5.2); ALT/SGPT 47 U/L (12-78); BILIRUBIN,TOTAL 0.3 MG/DL (0.2-1.0); BLOOD UREA NITROGEN 12 MG/DL (7-18); CALCIUM LEVEL 8.6 MG/DL (8.5-10.1); CARBON DIOXIDE LEVEL 25 MEQ/L (21-32); CHLORIDE LEVEL 113 MEQ/L (98-107); CREATININE FOR GFR 0.88 MG/DL (0.55-1.30); GLOMERULAR FILTRATION RATE > 60.0 (>51); GLUCOSE, FASTING 87 MG/DL (70-100); POTASSIUM SERUM 4.1 MEQ/L (3.5-5.1); SODIUM LEVEL 142 MEQ/L (136-145); TOTAL PROTEIN 6.2 GM/DL (6.4-8.2)
[2019-05-03] MEDS ORDERED: CETIRIZINE (ZyrTEC) 10 MG TAB PO SCH (09:00)
[2019-05-03] MEDS ORDERED: ASPIRIN 81 MG ENTERIC TAB PO SCH (09:00)
[2019-05-03] MEDS ORDERED: lamoTRIgine 25 MG TAB PO SCH (09:00)
[2019-05-03] MEDS ORDERED: DOCUSATE SODIUM 100 MG CAP PO SCH (09:00)
[2019-05-03] MEDS ORDERED: RIVAROXABAN 20 MG TAB (XARELTO) PO SCH (09:00)
[2019-05-03] MEDS ORDERED: DICYCLOMINE 10 MG CAP PO PRN (09:00)
[2019-05-03] MEDS ORDERED: TOPIRAMATE (TopAMAX) 25 MG TAB PO SCH (09:00)
[2019-05-03 09:23] LABS: C REACTIVE PROTEIN QUANTITATIV < 0.30 MG/DL (0.00-0.30)
[2019-05-03] MEDS ORDERED: DICY1CAP8 PO (12:35)
--- NOTE | 2019-05-03 13:50 | DS.PDOC ---
Discharge Summary General Date of Admission May 02, 2019 at 21:46 Date of Discharge 05/03/2019 Discharge Summary PROCEDURES PERFORMED DURING STAY: [None]. ADMITTING DIAGNOSES / DISCHARGE DIAGNOSES: Abdominal pain - possibly 2/2 viral enteritis Migraine headache Focal seizure Bilateral breast abscesses GERD Depression History of abnormal Paps Bilateral pulmonary emboli, anticoagulation with Xarelto Macular degeneration, dry Dyslipidemia DVT prophylaxis COMPLICATIONS/CHIEF COMPLAINT: Abdominal pain HISTORY OF PRESENT ILLNESS / HOSPITAL COURSE: Patient is a 53-year-old female with a PMHx Migraine headaches, focal seizures, GERD, depression, bilateral pulmonary embolism (on Anticoagulation with Xarelto), and open gastric bypass surgery who presented to the ER with abdominal pain. She reported that 1:00 she began to experience mid epigastric pain described as dull/crampy. Patient noted that her pain was worsened with eating and was mildly alleviated with medications received in the ER. Patient denies any vomiting or diarrhea. She reports that her bowel movements have been unchanged. Has not expense any fevers or chills. The emergency room, patient received imaging that was suspicious for possible enteritis. Patient remained hemodynamically stable and afebrile. No significant leukocytosis, lactic acidosis or loculated abnormalities were noted. Patient was given aggressive pain control with Dilaudid and ketamine. Patient is also given a GI cocktail. Patient's abdominal pain had failed to resolve. This morning patient was given dicyclomine to help with abdominal spasms. Reevaluation of the patient this afternoon revealed that her abdominal pain has resolved completely. She's been tolerating her meals and has requested to go home. Currently, patient is clinically stable. Patient has been advised to follow-up with her primary care provider Shweta Cody within the next 7 days and remained compliant with treatment plan and medications. DISCHARGE MEDICATIONS: Please see below. ALLERGIES: Please see below. PHYSICAL EXAMINATION ON DISCHARGE: Vitals (See below) General: Lying in bed, no acute distress, comfortable, AAOx3 HEENT: NC, AT CVS: +S1S2 Lungs: Fair air entry b/l, -w/r/r Abdomen: Soft, ND, no tenderness on physical exam noted this afternoon Extremities: - Edema, - Calf tenderness LABORATORY DATA: Please see below. IMAGING: CT ab/pelvis 05/01: 1. Underdistention and/or mild wall thickening of the small bowel loops in the lower abdomen and pelvis with moderate associated mesenteric engorgement and infiltration of the mesenteric fat. Query nonspecific enteritis. 2. Additional findings, as above. ACTIVITY: [As tolerated]. DISCHARGE PLAN: Follow up with Shweta Cody within 7 days Remain compliant with treatment plan and medications Return to the ER if you experience any problems DISPOSITION: Home DISCHARGE CONDITION: [Stable]. TIME SPENT ON DISCHARGE: 35 minutes Vital Signs/I&Os Vital Signs Date Time Temp Pulse Resp B/P (MAP) Pulse Ox O2 Delivery O2 Flow Rate FiO2 05/03/19 04:20 97.8 53 18 127/66 (86) 100 Room Air I&O- Last 24 Hours up to 6 AM 05/03/19 06:00 Intake Total 1551.6 ml Balance 1551.6 ml Laboratory Data Labs 24H Laboratory Tests 2 05/02/19 22:21: Immature Granulocyte % (Auto) 0.3, Neutrophils (%) (Auto) 65.4, Lymphocytes (%) (Auto) 24.4, Monocytes (%) (Auto) 6.2H, Eosinophils (%) (Auto) 3.0, Basophils (%) (Auto) 0.7, Neutrophils # (Auto) 3.9, Lymphocytes # (Auto) 1.5, Monocytes # (Auto) 0.4, Eosinophils # (Auto) 0.2, Basophils # (Auto) 0.0, Nucleated Red Blo od Cells % (auto) 0.0, Prothrombin Time 15.6H, Prothromb Time International Ratio 1.27, Activated Partial Thromboplast Time 28.3, Anion Gap 8, Glomerular Filtration Rate 54.9, Calcium Level 8.5, Total Bilirubin 0.3, Direct Bilirubin 0.1, Aspartate Amino Transf (AST/SGOT) 24, Alanine Aminotransferase (ALT/SGPT) 33, Alkaline Phosphatase 83, Total Creatine Kinase 82, Creatine Kinase MB < 1.0, Creatine Kinase MB Relative Index 1.22, Troponin I < 0.02, Total Protein 6.7, Albumin 3.4, Albumin/Globulin Ratio 1.03, Lipase 343 05/02/19 22:24: Urine Color YELLOW, Urine Appearance CLEAR, Urine pH 6.0, Urine Specific Stanley 1.012, Urine Protein NEGATIVE, Urine Glucose (Auto)(UA) NEGATIVE, Urine Ketones (Auto) NEGATIVE, Urine Blood NEGATIVE, Urine Nitrite NEGATIVE, Urine Bilirubin NEGATIVE, Urine Urobilinogen 0.2, Urine Leukocyte Esterase (Auto) TRACEH, Urine WBC (Auto) 2, Urine RBC (Auto) 1, Urine Hyaline Casts (Auto) 1, Urine Bacteria (Auto) NEGATIVE, Urine Squamous Epithelial Cells 0, Urine Mucus (Auto) SMALL, Urine Sperm (Auto) 05/03/19 06:09: Nucleated Red Blood Cells % (auto) 0.0, Anion Gap 4L, Glomerular Filtration Rate > 60.0, Calcium Level 8.6, Total Bilirubin 0.3, Aspartate Amino Transf (AST/SGOT) 45H, Alanine Aminotransferase (ALT/SGPT) 47, Alkaline Phosphatase 75, Total Protein 6.2L, Albumin 3.2, Albumin/Globulin Ratio 1.07, C-Reactive Protein, Quantitative < 0.30 05/03/19 11:21: Lactic Acid Level 0.6, Lactate Dehydrogenase 122 CBC/BMP Laboratory Tests 05/02/19 22:21 05/03/19 06:09 Discharge Medications Scheduled Aspirin (Aspir 81) 81 Mg Tab, 81 MG PO DAILY, (Reported) Atorvastatin Calcium (Atorvastatin Calcium) 10 Mg Tablet, 10 MG PO QHS, (Reported) Calcium Carbonate/Vitamin D3 (Calcium 600-Vit D3 800 Tablet) 1 Tab Tab, 1 TAB PO BID, (Reported) Cetirizine HCl (Cetirizine HCl) 10 Mg Tab, 10 MG PO DAILY, (Reported) Dexlansoprazole (Dexilant) 60 Mg Cap, 60 MG PO DAILY, (Reported) Duloxetine Hcl (Duloxetine HCl) 30 Mg Cap, 90 MG PO QHS, (Reported) Lamotrigine (Lamotrigine) 100 Mg Tablet, 50 MG PO BID, (Reported) TAKE FOR 3 DAYS THEN 1 TABLET BID. STARTED 50MG 05/02/2019 Multivitamin (Multivitamins) 1 Each Capsule, 1 CAP PO BID, (Reported) Rivaroxaban (Xarelto) 20 Mg Tablet, 20 MG PO DAILY, (Reported) Topiramate (Topiramate) 50 Mg Tablet, 150 MG PO BID, (Reported) Trazodone HCl (Trazodone HCl) 100 Mg Tab, 200 MG PO QHS, (Reported) [ProDHA Eye] , 1,000 MG PO BID, (Reported) 960 mg DHA per serving Scheduled PRN Dicyclomine HCl (Dicyclomine HCl) 10 Mg Capsule, 10 MG PO Q8HP PRN for abdominal spasms Hydroxyzine Pamoate (Vistaril) 25 Mg Cap, 25 MG PO QHS PRN for INSOMNIA, (Reported) Ondansetron (Ondansetron Odt) 8 Mg Tab, 8 MG PO Q6H PRN for NAUSEA, (Reported) Rizatriptan Benzoate (Rizatriptan) 10 Mg Tab.rapdis, 10 MG PO PRN PRN for MIGRAINE, (Reported) Allergies Coded Allergies: Penicillins (Verified Allergy, Intermediate, hives, 11/18/18) Quinolones (Verified Allergy, Intermediate, hives, 11/18/18) clindamycin (Verified Allergy, Intermediate, lip swelling, 11/18/18) latex (Verified Allergy, Intermediate, RASH, 11/18/18) bee venom protein (honey bee) (Verified Adverse Reaction, Unknown, swelling at site, 11/12/18) OTF HAGAN MD May 03, 2019 13:50
== END 2019-05-03 13:50 | disposition home or self-care (01) ==
LOC: M ED 21:45 → M ED INP 21:46 → ENRESERV 05-03 03:56 → M MSPAV 05-03 04:20
PROVIDERS: ADMIT Internal Medicine; ATTEND Internal Medicine
DX: R10.9 Unspecified abdominal pain (principal); G43.909 Migraine, unspecified, not intractable, without status migrainosus; G40.209 Localization-related (focal) (partial) symptomatic epilepsy and epileptic syndromes with complex partial seizures, not intractable, without status epilepticus; K21.9 Gastro-esophageal reflux disease without esophagitis; F32.9 Major depressive disorder, single episode, unspecified; Z86.711 Personal history of pulmonary embolism; H35.30 Unspecified macular degeneration; E78.5 Hyperlipidemia, unspecified; G47.00 Insomnia, unspecified; Z68.29 Body mass index [BMI] 29.0-29.9, adult; Z98.84 Bariatric surgery status; Z79.899 Other long term (current) drug therapy; Z79.82 Long term (current) use of aspirin; Z79.01 Long term (current) use of anticoagulants; Z88.0 Allergy status to penicillin; Z88.1 Allergy status to other antibiotic agents; Z91.040 Latex allergy status; Z91.030 Bee allergy status
CPT/HCPCS: 36415; 74177; 80048; 80053; 80076; 81001; 82550; 82553; 83605; 83615; 83690; 84484; 85025; 85027; 85610; 85730; 86140; 93005; 96361; 96365; 96375; 96376; 99285; C9113; J1170; J2270; J2405; Q9963; Q9967

== ENCOUNTER → 2019-09-01 | Outpatient (CLI) | payer OTHER ==
[~2019-09-01] MED LIST changes: -ASPI81TA85 PO; +ASPI81TA86 PO; +ATOR1TAB19 PO; -ATORVASTATIN 10 MG TAB PO SCH; +CYCL-707 PO; -CYCL10TA PO; +DICY1CAP8 PO; -DULoxetine 30 MG CAP (CYMBALTA) PO SCH; +LAMO100T3 PO
[2019-09-01 13:51] LABS: BASO # 0.1 10^3/uL (0.0-0.2); BASO % 1.1 % (0.0-1.0); EOS # 0.2 10^3/uL (0.0-0.5); EOS % 3.5 % (0.0-3.0); HEMATOCRIT 36.5 % (36.0-47.0); HEMOGLOBIN 11.9 g/dl (12.0-15.5); LYMPH # 1.4 10^3/uL (1.5-5.0); LYMPH % 29.4 % (24.0-44.0); MEAN CORPUSCULAR HEMOGLOBIN 27.5 pg (27.0-33.0); MEAN CORPUSCULAR HGB CONC 32.6 g/dl (32.0-36.5); MEAN CORPUSCULAR VOLUME 84.5 fl (80.0-96.0); MONO # 0.3 10^3/uL (0.0-0.8); MONO % 6.5 % (0.0-5.0); NEUTROPHILS # 2.7 10^3/uL (1.5-8.5); NEUTROPHILS % 59.3 % (36.0-66.0); PLATELET COUNT, AUTOMATED 268 10^3/uL (150-450); RED BLOOD COUNT 4.32 10^6/uL (4.00-5.40); WHITE BLOOD COUNT 4.6 10^3/uL (4.0-10.0)
[2019-09-01 14:04] LABS: ALBUMIN 3.5 GM/DL (3.2-5.2); BILIRUBIN,TOTAL 0.3 MG/DL (0.2-1.0); CALCIUM LEVEL 8.9 MG/DL (8.5-10.1); CREATININE FOR GFR 1.15 MG/DL (0.55-1.30); POTASSIUM SERUM 4.7 MEQ/L (3.5-5.1); TOTAL PROTEIN 6.5 GM/DL (6.4-8.2)
== END ==
LOC: M LAB 13:12
PROVIDERS: ATTEND Psychiatry & Neurology Neurology
DX: R56.9 Unspecified convulsions (principal)

== ENCOUNTER → 2020-01-27 | Outpatient (CLI) | payer OTHER ==
--- NOTE | 2020-01-27 10:44 | REPMRS ---
Patient History The patient states she had a clinical breast exam in 01/30 Family history of breast cancer at age 50 or over in maternal aunt, colorectal cancer at age 50 or over in maternal aunt. Digital Woman Screen Mammo: January 27, 2020 - Exam #: [id number] Bilateral CC and MLO view(s) were taken. Technologist: Juana Russell, Technologist Prior study comparison: April 16, 2018, bilateral digital woman screen mammo performed at [facility]. October 07, 2014, digital woman screen mammo performed at [facility]. August 13, 2013, digital woman screen mammo performed at [facility]. FINDINGS: There are scattered fibroglandular densities. The Volpara volumetric breast density category is:B. There has been no change in the appearance of the mammogram from the prior studies. There is a mild amount of scattered fibroglandular density which is fairly symmetric. There is no interval development of dominant mass, architectural distortion, or grouped microcalcification suggestive of malignancy. 3-D tomosynthesis shows no additional findings. Assessment: BI-RADS/ACR category 1 mammogram. Negative Mammogram. Recommendation Routine screening mammogram of both breasts in 1 year (for women over age 40). This patient's [facility] Lifetime Breast Cancer Risk is estimated at 9.8 %. This mammogram was interpreted with the aid of an FDA-approved computer-aided dectection system. Electronically Signed By: Bruno Farah MD 01/27/20 [id number]
== END ==
LOC: M WHC 09:36
PROVIDERS: ATTEND Nurse Practitioner Family
DX: Z12.31 Encounter for screening mammogram for malignant neoplasm of breast (principal)

== ENCOUNTER → 2020-02-09 | Outpatient (CLI) | payer OTHER ==
[~2020-02-09] MED LIST changes: +ISOVUE-370 76% 100ML VIAL As Ordered ONE
--- NOTE | 2020-02-09 08:55 | REPVR ---
PROCEDURE INFORMATION: Exam: CT Neck With Contrast Exam date and time: 02/09/2020 8:05 AM Age: 54 years old Clinical indication: Neck pain; Additional info: Lenny michelle of oropharynx TECHNIQUE: Imaging protocol: Computed tomography images of the neck with intravenous contrast. Radiation optimization: All CT scans at this facility use at least one of these dose optimization techniques: automated exposure control; mA and/or kV adjustment per patient size (includes targeted exams where dose is matched to clinical indication); or iterative reconstruction. Contrast material: ISO 370; Contrast volume: 75 ml; Contrast route: INTRAVENOUS (IV); COMPARISON: No relevant prior studies available. FINDINGS: Nasopharynx: Unremarkable. Oropharynx: Unremarkable. No significant tonsillar enlargement. Hypopharynx: Unremarkable. Larynx: Unremarkable. Normal epiglottis. Retropharyngeal space: Unremarkable. Submandibular/Parotid glands: Normal. Glands are normal in size. Thyroid: There are small thyroid nodules more numerous on the left with the largest measuring 7 mm. Follow-up is not recommended for this size lesion. Lymph nodes: Unremarkable. No lymphadenopathy. Trachea: Visualized trachea is unremarkable. Lungs: The visualized portions of the lung apices are normal. Bones/joints: Unremarkable. No acute fracture. Soft tissues: There is mild calcification of the carotid siphons. IMPRESSION: There are small thyroid nodules more numerous on the left with the largest measuring 7 mm. Follow-up is not recommended for this size lesion. RECOMMENDATION: No gabriela pharyngeal pathology is identified, the study should be correlated with the specific clinical findings. COMMENTS: Consistent with the [employer]'s Incidental Findings Committee white paper (J Am Deonna Radiol 2015): In patients aged 35 years and older with an incidental thyroid nodule equal to or greater than 1.[address], MRI or extrathyroidal US, further evaluation with dedicated thyroid US is recommended for patients with normal life expectancy and without comorbidities. For smaller nodules without suspicious features, no further evaluation or follow up is recommended. Electronically signed by: Can Downs On 02/09/2020 08:55:37 AM
== END ==
LOC: M RAD 07:42
PROVIDERS: ATTEND Otolaryngology
DX: D10.5 Benign neoplasm of other parts of oropharynx (principal)
CPT/HCPCS: 70491; Q9967

== ENCOUNTER → 2020-03-04 | Outpatient (CLI) | payer OTHER ==
[~2020-03-04] MED LIST changes: +ASPI81TA26 PO; +CARA1TAB6 PO; -ISOVUE-370 76% 100ML VIAL As Ordered ONE; +OXCA600T8 PO; +THERTAB52 PO
--- NOTE | 2020-03-04 17:43 | ECGEPIP ---
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
== END ==
LOC: M EKG 16:54
PROVIDERS: ATTEND Anesthesiology
DX: Z01.812 Encounter for preprocedural laboratory examination (principal)

== ENCOUNTER → 2020-03-05 | Outpatient (CLI) | payer OTHER | LOC: M LABSMTC 11:04 | PROVIDERS: ATTEND Anesthesiology | DX: Z01.812 Encounter for preprocedural laboratory examination (principal); Z20.822 Contact with and (suspected) exposure to COVID-19 ==

== ENCOUNTER 2020-03-10 06:55 | Day surgery (SDC) | payer OTHER ==
[~2020-03-10] VITALS: Ht 163.2 cm; Wt 74.8 kg
--- OUTSIDE RECORDS SUMMARY | 2020-03-10 06:59 | CCD ---
Author Author [employer] Organization [facility] [employer] Address Unknown Phone Unavailable Care Team Providers Care [employer] Contract Representative Name Role Phone Maryann Lezama Unavailable PROBLEMS Type Condition ICD9-CM Code BWM42-AM Code Onset Dates Condition S tatus SNOMED Code Notes Problem Family history of colon cancer V16.0 Active 4 02208847 Problem Decreased libido 799.81 Active 7231586 Problem Reflux esophagitis 530.11 Active 861835630 Problem Migraine without aura, witho ut mention of intractable migraine with status migrainosus 346.12 Active 05376984 Problem Mild dysplasia of cervix 622.11 Active 4803798 03 ALLERGIES Allergen (clinical drug ingredient) Drug/Non Drug Allergy do cumented on EMR Reaction Allergy Type Onset Date Status Penicillin (For Allergies Use Only) hives Drug Allerg y Active Vicodin Itching Drug Allergy Active Bee sting local reaction Non Drug Allergy Acti ve codeine Codeine Sulfate(ND Code:[address]-46) vomiting Drug Al lergy Active Levaquin hives Drug Allergy Active clindamycin Clindamycin HCl(ND Code:[address]-18) eyes&lip swelling Drug Allergy Active ENCOUNTERS from 1965 to 2020-01-28 Encounter Location Date Provider Diagnosis [facility] [address] [place] [address] 16 Jan, 2020 Maryann Lezama Encounter for gyneco logical examination without abnormal finding Z01.419 and Encounter for other screening for malignant neoplasm of breast Z12.39 IMMUNIZATIONS No Information SOCIAL HISTORY Sex Assigned At : Social History Observation Description Sex Assigned At Unknown Education: Question Answer Notes Level of Education: College Language: Question Answer Notes Languages spoken: Pashto Protestant: Question Answer Notes Protestant 31 None Alcohol Screening: Question Answer Notes Did you have a drink containing alcohol in the past year? No Points 0 Interpretation Negative BMI Care Goal Follow-Up Question Answer Notes Above Normal BMI Follow-Up Lifestyle education regarding t REASON FOR REFERRAL No Information VITAL SIGNS Weight 206 lbs Jan, Weight-kg 93.44 kg Jan, Height 64 in Jan, BMI 35.36 kg/m2 Jan, Blood pressure systolic 100 mm Hg Jan, Blood pressure diastolic 65 mm Hg Jan, MEDICATIONS Medication SIG (Take, Route, Frequency, Duration) Notes Start Da te End Date Status Calcium 600 + D 600-400 MG-UNIT 1 tablet Orally twice a day for 30 da y(s) Active Lipitor 10 MG 1 tablet Orally Once a day Active Dexilant 60 MG 1 capsule Orally Once a day for 30 day(s) Active Cymbalta 60 MG 1 capsule Orally Once a day Active TraZODone HCl 100 MG 2 tabs Orally Once a day Active Aspir-81 81 MG 1 tablet Orally Once a day Active HydrOXYzine HCl 25 MG 1 tablet as needed Orally every 8 hrs Active Rizatriptan Benzoate 10 MG 1 tablet as needed one time Orally Once a day Active Topamax 100 100mg as directed oral twice daily Not-Taking Vitamin D3 1000 UNIT 1 tablet Orally Once a day for 30 day(s) Not-Taking Cymbalta 30 MG 1 capsule Orally Once a day Active Tegretol XR 200 MG 2 tabs Orally Twice a day for 30 day(s) Not-Taking Requip 1 MG 1 tablet 1 to 3 hours before bedtime Orally Once a day Not-Taking Oxcarbazepine 600 MG 1 tablet Orally Twice a day Active Zofran ODT 8 mg Orally daily as needed Active Iron 325 (65 Fe) MG 1 tablet Orally Twice a day for 30 day(s) Not-Taking Xarelto 20 MG 1 tablet with food Orally Once a day Active Multivitamins otc 1 Orally twice daily Active Cymbalta 30 MG 3 caps Orally Once a day Active Astelin 137 MCG/SPRAY 1 puff in each nostril Nasally Twice a day as needed Active DHA Pierson 3 100 MG Orally Active Topamax 50 MG 3 tabs Orally twice daily Active PROCEDURES No Information RESULTS No Results REASON FOR VISIT ANNUAL/MAMMO MEDICAL (GENERAL) HISTORY Type Description Date Medical History migraine headache Medical History focal seizures since 1998 Medical History breast abcesses nacho. Medical History pneumonia 10/21 Medical History chemical dependence 2009 Medical History Esophageal reflux Medical History depression Medical History 06/22 abnormal pap-lgsil, colpo-cin1 Medical History Pulmonary embolism 04/2014 Surgical History appendectomy 1974 Surgical History knee surgery/right/meniscectomy Surgical History gastric bypass 2004 Surgical History LEEP 1999 Surgical History cryo to cervix Surgical History right shoulder surgery x2 Surgical History carpal tunnel release/right 08/21 Surgical History left knee surgery 02/22 Surgical History colposcopy-cin1 07/23 Surgical History colonoscopy ademomatous polyp 05/09/17 Surgical History gall bladder took out and cystic duct le ak 11/29 Hospitalization History gall bladder took out and cystic pete t leak 11/29 Goals Section No Information Health Concerns No Information MEDICAL EQUIPMENT No Information MENTAL STATUS No Information FUNCTIONAL STATUS No Information ASSESSMENTS Encounter Date Diagnosis Assessment Notes Treatment Notes Treatm ent Clinical Notes Jan, Encounter for gynecological examination without abnormal finding (ICD-10 - Z01.419) Jan, Encounter for other screenin g for malignant neoplasm of breast (ICD-10 - Z12.39) PLAN OF TREATMENT Treatment Notes Test Name Order Date [facility] Domingo Screening Bilateral (Ultrasound if Indicated ) (3D Mammo) 2020-01-28 Next Appt Details 1 Year Reason: Insurance Providers Payer Name Payer Address Payer Phone Insured Name Patient Relati onship to Insured Coverage Start Date Coverage End Date [facility] [address] [id number] [facility] [id number] JANE MIKE self
--- OUTSIDE RECORDS SUMMARY | 2020-03-10 06:59 | CCD | Continuity of Care Document ---
Author Author Julisa Cody Organization Unknown Address [address] [address] Phone [phone] Care Team Providers Care Power Chisel Operator Name Role Phone Shweta Cody AUTM [phone] [facility] AUTM [phone] Problems Active Problems Provider Date Migraine CARA Jesus Onset: 12/25/2010 Seizure Reymundo Maharaj D.O. Onset: 2010 Social History Type Date Description Comments Sex Unknown Tobacco Use Start: Unknown End: Unknown Former Cigarette Smo ker 2 Packs Daily QUIT 8 PACKS ETOH Use Occasionally consumed liquor in the past QUIT 8 MONTHS AGO Tobacco Use Start: Unknown End: Unknown Patient is a former smoker Allergies, Adverse Reactions, Alerts Active Allergies Reaction Severity Comments Date Penicillin 01/24/2010 Levaquin 12/10/2011 Clindamycin 12/10/2011 Vicodin 12/10/2011 Medications Active Medications SIG Qnty Indications Ordering Provide r Date Dexilant 60mg Capsules DR Take 1 Capsule Daily 90caps CARA Jesus 11/30/2019 Xarelto 20mg Tablets take one tablet by mouth every day with food 90tabs CARA Jesus 0 03/12/2019 Azelastine HCL (Nasal) 0.15% Solut ion Instill 2 Sprays In Each Nostril Once A Day. 30units CARA Osborn 03/04/2019 Atorvastatin Calcium 10mg Tablets Take 1 Tablet Daily 90tabs CARA Jesus 01/22/2019 Ondansetron 8mg Tablets Dispers Place 1 Tablet On The Tongue And Let Dissolve Every 8 Hours as Needed For Nausea 21tabs Shweta Cody, CARA 12/08/[address] Part take 90 mg daily CARA Jesus 12/02/2018 Rizatriptan Benzoate 10mg Tablets Dispers Dissolve 1 Tablet By Mouth as Needed For Migraine. May Repeat In 2 Hours If Needed 9tabs Shweta Cody, CARA 04/01/2018 Topiramate 50mg Tablets Take 3 Tablets Twice A Day 180tabs Shweta Cody, CARA 02/26/2017 Trazodone HCL 100mg Tablets 1 po qd 30tabs Reymundo Maharaj D.O. 09/26/2015 Calcium 500 +D [id number] Tablets bid CARA Jesus 04/17/2010 Aspir-[address] 1 by mouth every day Unknown Ocuvite Adult Formula Capsules 1 by mouth twice a day Unknown Hydroxyzine HCL 25mg Tablets 1 at hs Unknown Trileptal 600mg Tablets 1 by mouth twice a day Unknown History Medications Trileptal 300mg Tablets 1 by mouth twice a day CARA Jesus 12/16/2019 - 12/16/2019 Immunizations CPT Code Status Date Vaccine Lot # U-[id number] Given 11/25/2019 Influenza,Unspecified Vital Signs Date Vital Result Comment 12/16/2019 11:27am BP Systolic 130 mmHg BP Diastolic 80 mmHg Heart Rate 82 /min Height 64 inches 5'4" Weight 168.00 lb O2 % BldC Oximetry 98 % BMI (Body Mass Index) 28.8 kg/m2 11/06/2019 2:43pm BP Systolic 110 mmHg LT Arm BP Diastolic 70 mmHg LT Arm Heart Rate 76 /min Height 64 inches 5'4" Weight 174.50 lb BMI (Body Mass Index) 29.9 kg/m2 Results Test Acquired Date Facility Test Result H/L Range Note CBC With Differential 09/01/2019 [facility] [address] [place], [place] [id number] [phone] White Blood Count 4.6 10 Normal 4.0-10.0 Red Blood Count 4.32 10 Normal 4.00-5.40 Hemoglobin 11.9 g/dL Low 12.0-15.5 Hematocrit 36.5 % Normal 36.0-47.0 Mean Corpuscular Volume 84.5 fl Normal 80.0-96.0 Mean Corpuscular Hemoglobin 27.5 pg Normal 27.0-33.0 Mean Corpuscular HGB Conc 32.6 g/dL Normal 32.0-36.5 Red Cell Distribution Width 15.7 % High 11.5-14.5 Platelet Count, Automated 268 10 Normal 150-450 Neutrophils % 59.3 % Normal 36.0-66.0 Lymph % 29.4 % Normal 24.0-44.0 [place] % 6.5 % High 0.0-5.0 Eos % 3.5 % High 0.0-3.0 Baso % 1.1 % High 0.0-1.0 Immature Granulocyte % 0.2 % Normal 0-3.0 Nucleated Red Blood Cell % 0.0 % Normal 0-0 Neutrophils # 2.7 10 Normal 1.5-8.5 Lymph # 1.4 10 Low 1.5-5.0 [place] # 0.3 10 Normal 0.0-0.8 Eos # 0.2 10 Normal 0.0-0.5 Baso # 0.1 10 Normal 0.0-0.2 Comprehensive Metabolic Profil 09/01/2019 [place] [id number] [phone] Glucose, Fasting 78 mg/dL Normal 70-100 Blood Urea Nitrogen 12 mg/dL Normal 7-18 Creatinine For GFR 1.15 mg/dL Normal 0.55-1.30 Glomerular Filtration Rate 52.0 Normal >51 1 Sodium Level 143 mEq/L Normal 136-145 Potassium Serum 4.7 mEq/L Normal 3.5-5.1 Chloride Level 113 mEq/L High 98-107 Carbon Dioxide Level 24 mEq/L Normal 21-32 Anion Gap 6 mEq/L Low 8-16 Calcium Level 8.9 mg/dL Normal 8.5-10.1 Ast/Sgot 46 U/L High 7-37 Alt/SGPT 67 U/L Normal 12-78 Alkaline Phosphatase 85 U/L Normal 45-117 Bilirubin,Total 0.3 mg/dL Normal 0.2-1.0 Total Protein 6.5 GM/DL Normal 6.4-8.2 Albumin 3.5 GM/DL Normal 3.2-5.2 Albumin/Globulin Ratio 1.2 Normal 1.2-2.2 Laboratory test finding 09/01/2019 [facility] [address] [place] [address] [phone] Oxcarbazepine SEE SEPARATE REP <SEE NOTE> Normal 10-35 2 Basic Metabolic Panel 07/29/2019 [facility] Automobile Seat Cover Installer: Dr Marlon Delarosa [place], [place] [id number] [phone] Glucose 91 mg/dL 74 - 99 3 BUN 13 mg/dL 7 - 18 Creatinine 1.1 mg/dL 0.6 - 1.3 Sodium 143 mEq/L 136 - 145 Potassium 4.5 mEq/L 3.5 - 5.1 Chloride 109 mEq/L High 98 - 107 Carbon Dioxide 25 mEq/L 21 - 32 Calcium 8.9 mg/dL 8.5 - 10.1 GFR 52 mL/min Low >60 GFR >= 60 mL/min >60 4 Complete Blood Count 07/29/2019 [facility] Automobile Seat Cover Installer: [place] [address] [phone] WBC 3.6 x10*3/UL Low 4.1 - 10.9 RBC 4.43 x10*6/UL 4.20 - 6.30 Hemoglobin 12.1 g/dL 12.0 - 18.0 Hematocrit 36.0 % Low 37.0 - 51.0 MCV 81.3 fL 80.0 - 97.0 MCH 27.3 pg 26.0 - 32.0 MCHC 33.6 g/dL 31.0 - 38.0 RDW 14.5 % High 11.6 - 13.7 PLT 233 x10*3/UL 140 - 440 MPV 8.7 FL 7.8 - 11.0 Lymph % 35.8 % 10.0 - 58.5 Mid % 7.5 % 1.7 - 9.3 Neut % 56.7 % 37.0 - 92.0 Lymph # 1.3 x10*3/UL 0.6 - 4.1 Mid # 0.3 x10*3/UL 0.1 - 0.6 Neut # 2.0 x10*3/UL 2.0 - 7.8 1 Units are mL/min/1.73 m2 Chronic Kidney Disease Staging per NKF: Stage I & II GFR >=60 Normal to Mildly Decreased Stage III GFR 30-59 Moderately Decreased Stage IV GFR 15-29 Severely Decreased Stage V GFR <15 Very Little GFR Left ESRD GFR <15 on SOLE BLACKER 2 SEE SEPARATE REPORT Testing performed at reference lab . Report copy to follow on a separate form. 10/28/19 REF LAB#:[id number] 100-125 mg/dL PRE-DIABET ES/FASTING >126 mg/dL DIABETES/FASTING 4 CHRONIC KIDNEY DISEASE STAGI NG PER NKF STAGE I & II GFR >= 60 NORMAL TO MILDLY DECREASED STAGE III GFR 30-59 MODERATELY DECREASED STAGE IV GFR 15-29 SEVERELY DECREASED STAGE V GFR <15 VERY LITTLE GFR LEFT ESRD GFR <15 ON SOLE BLACKER Procedures Date Code Description Status 05/09/2017 [id number] Colonoscopy Completed 2013 [id number] Mammogram Completed 06/12/2011 [id number] Mammogram Completed 10/11/2006 [id number] Mammogram Completed Medical Devices Description No Information Available Encounters Type Date Location Provider Dx Diagnosis Office Visit 12/16/2019 11:15a [facility], ANP I26.99 Other pulmonary embolism without acute c or pulmonale Z79.01 terminal computer operator (current) use of a nticoagulants 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 G40.89 Other seizures E78.00 Pure hypercholesterolemia, u nspecified Z98.84 Bariatric surgery status G43.909 Migraine, unsp, not intracta ble, without status migrainosus Office Visit 11/06/2019 2:40p [facility] FNP 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 Office Visit 07/29/2019 2:40p [facility] FNP I26.99 Other pulmonary embolism without acute c or pulmonale Z79.01 terminal computer operator (current) use of a nticoagulants G40.89 Other seizures E78.00 Pure hypercholesterolemia, u nspecified Assessments Date Code Description Provider 12/16/2019 I26.99 Other pulmonary embolism without acute cor pulmonale Shweta Cody ANP 12/16/2019 Z79.01 terminal computer operator (current) use of antic oagulants CARA Jesus 12/16/2019 D37.05 Neoplasm of uncertain behavior o f pharynx CARA Jesus 12/16/2019 G40.89 Other seizures CARA Jesus 12/16/2019 E78.00 Pure hypercholesterolemia, unspe cified CARA Jesus 12/16/2019 Z98.84 Bariatric surgery status CARA Ronquillo 12/16/2019 G43.909 Migraine, unspecifie d, not intractable, without status migrainosus CARA Jesus 11/06/2019 D37.05 Neoplasm of uncertain behavior o f pharynx Marla Haywood, DOWEL SANDER OPERATOR 07/29/2019 I26.99 Other pulmonary embolism without acute cor pulmonale RIDDHI Haines 07/29/2019 Z79.01 skilled nursing (current) use of antic oagulants Marla Haywood, RIDDHI 07/29/2019 G40.89 Other seizures Marla Haywood, F ZIGZAG STITCHER 07/29/2019 E78.00 Pure hypercholesterolemia, unspe cified RIDDHI Haines Plan of Treatment Future Appointment(s):* 06/14/2020 9:20 am - CARA Jesus at [facility] 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 * G40.89 Other seizures * E78.00 Pure hypercholesterolemia, unspecified * Z98.84 Bariatric surgery status * G43.909 Migraine, unspecified, not intractable, without status migrainosus * All * New Medication:* Trileptal 300 mg - 1 by mouth twice a day Functional Status Description No Information Available Mental Status Description No Information Available Referrals Refer to Dr Reason for Referral Status Appt Date Ryan Vides MD CHRISTOPHE CONSULT FOR GROWTH ON RT AND LT SHYAM E OF THROAT Patient Notified 11/16/2019 [facility] [address] [facility],[address] [address] [phone]
--- OUTSIDE RECORDS SUMMARY | 2020-03-10 06:59 | CCD | Continuity of Care Document ---
Author Author Julisa Delarosa MD Organization Unknown Address [address] [address] Phone [phone] Care Team Providers Care Certified Anesthesiologist Assistant Name Role Phone Shweta Cody AUTM [phone] [facility] AUTM [phone] Problems Active Problems Provider Date Migraine CARA [...] 8 Hours as Needed For Nausea 21tabs CARA Jesus 12/08/[address] Part take [...] Reymundo Maharaj D.O. 09/26/2015 Calcium 500 +D [id number] Tablets bid CARA Jesus 04/17/2010 Aspir-81 81mg [...] Influenza,Unspecified Vital Signs Date Vital Result Comment 03/02/2020 1:17pm BP Systolic 132 mmHg BP Diastolic 72 mmHg Heart Rate 76 /min Height 64 inches 5'4" Weight 168.00 lb BMI (Body Mass Index) 28.8 kg/m2 12/16/2019 11:27am BP Systolic 130 mmHg BP Diastolic 80 mmHg Heart Rate 82 /min Height 64 inches 5'4" Weight 168.00 lb O2 % BldC Oximetry 98 % BMI (Body Mass Index) 28.8 kg/m2 Results Description No Information Available Procedures Date Code Description Status 05/09/2017 [id number] Colonoscopy Completed 2013 [id number] Mammogram Completed 06/12/2011 [id number] Mammogram Completed 10/11/2006 [id number] Mammogram Completed Medical Devices Description No Information Available Encounters Type Date Location Provider Dx Diagnosis Office Visit 03/02/2020 1:30p [facility] Encounter for preprocedural cardiovascul ar examination 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 I26.99 Other pulmonary embolism wit hout acute cor pulmonale Z79.01 [facility] (current) use of a nticoagulants G40.89 Other seizures E78.00 Pure hypercholesterolemia, u nspecified G47.33 Obstructive sleep apnea (owen lt) (pediatric) Office Visit 12/16/2019 11:15a [facility], ANP I26.99 Other pulmonary embolism without acute c or pulmonale Z79.01 [facility] (current) use of a nticoagulants 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 G40.89 Other seizures E78.00 Pure hypercholesterolemia, u nspecified Z98.84 Bariatric surgery status G43.909 Migraine, unsp, not intracta ble, without status migrainosus Office Visit 11/06/2019 2:40p [facility], VIDEO EDITING INTERNSHIP 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 Assessments Date Code Description Provider 03/02/2020 Z01.810 Encounter for preprocedural card iovascular examination Marlon Delarosa MD 03/02/2020 D37.05 Neoplasm of uncertain behavior o f pharynx Marlon Delarosa MD 03/02/2020 I26.99 Other pulmonary embolism without acute cor pulmonale Marlon Delarosa MD 03/02/2020 Z79.01 termite control servicer (current) use of antic oagulants Marlon Delarosa MD 03/02/2020 G40.89 Other seizures Marlon coon MD 03/02/2020 E78.00 Pure hypercholesterolemia, unspe cified Marlon Delarosa MD 03/02/2020 G47.33 Obstructive sleep apnea (adult) (pediatric) Marlon Delarosa MD 12/16/2019 I26.99 Other pulmonary embolism without acute cor pulmonale CARA Jesus 12/16/2019 Z79.01 termite control servicer (current) use of antic oagulants CARA Jesus 12/16/2019 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 [address] [facility] [address] [place], [place] [id number] [phone]
--- OUTSIDE RECORDS SUMMARY | 2020-03-10 06:59 | CCD | Continuity of Care Document ---
Author Author Julisa Delarosa MD Organization Unknown Address [address] [address] Phone [phone] Care Team Providers Care Wet Press Tender Name Role Phone Shweta Cody AUTM [phone] [facility] AUTM [phone] Problems Active Problems Provider Date Migraine CARA [...] Reymundo Maharaj D.O. 09/26/2015 Calcium 500 +D [id number] Tablets bid CARA Jesus 04/17/2010 Aspir-81 81mg [...] BMI (Body Mass Index) 28.8 kg/m2 Results Test Acquired Date Facility Test Result H/L Range Note CBC With Differential 09/01/2019 [facility] [address] [place] [address] [phone] White Blood Count 4.6 10 Normal 4.0-10.0 [...] 36.0-66.0 Lymph % 29.4 % Normal 24.0-44.0 [place] % 6.5 % High 0.0-5.0 Eos % 3.5 % High 0.0-3.0 Baso % 1.1 % High 0.0-1.0 Immature Granulocyte % 0.2 % Normal 0-3.0 Nucleated Red Blood Cell % 0.0 % Normal 0-0 Neutrophils # 2.7 10 Normal 1.5-8.5 Lymph # 1.4 10 Low 1.5-5.0 [place] # 0.3 10 Normal 0.0-0.8 Eos # 0.2 10 Normal 0.0-0.5 Baso # 0.1 10 Normal 0.0-0.2 Comprehensive Metabolic Profil 09/01/2019 [place] [id number] [phone] Glucose, Fasting 78 mg/dL Normal 70-100 Blood [...] 1.2 Normal 1.2-2.2 Laboratory test finding 09/01/2019 [facility] [address] [place] [address] [phone] Oxcarbazepine SEE SEPARATE REP <SEE NOTE> Normal 10-35 2 1 Units are mL/min/1.73 m2 Chronic Kidney Disease Staging per NKF: Stage I & II GFR >=60 Normal to Mildly Decreased Stage III GFR 30-59 Moderately Decreased Stage IV GFR 15-29 Severely Decreased Stage V GFR <15 Very Little GFR Left ESRD GFR <15 on BUILDING ADMIN 2 SEE SEPARATE REPORT Testing performed at reference lab . Report copy to follow on a separate form. 10/28/19 REF LAB#:[id number] Procedures Date Code Description Status 05/09/2017 [id number] Colonoscopy Completed 2013 [id number] Mammogram Completed 06/12/2011 [id number] Mammogram Completed 10/11/2006 [id number] Mammogram Completed Medical Devices Description No Information Available Encounters Type Date Location Provider Dx Diagnosis Office Visit 12/16/2019 11:15a [facility] 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 Assessments Date Code Description Provider 12/16/2019 I26.99 Other pulmonary embolism without acute cor pulmonale Shweta Cody, CARA 12/16/2019 Z79.01 jail (current) use of antic oagulants CARA Jesus 12/16/2019 D37.05 Neoplasm of uncertain behavior o f pharynx CARA Jesus 12/16/2019 G40.89 Other seizures CARA Jesus 12/16/2019 E78.00 Pure hypercholesterolemia, unspe cified Shweta Cody, CARA 12/16/2019 Z98.84 Bariatric surgery status Shweta Cody, CARA 12/16/2019 G43.909 Migraine, unspecifie d, not intractable, without status migrainosus Shweta Cody, CARA 11/06/2019 D37.05 Neoplasm of uncertain behavior o f pharynx RIDDHI Haines Plan of Treatment Future Appointment(s):* 06/14/2020 9:20 am - CARA Jesus at [facility] 12/16/2019 - CARA Jesus* I26.99 Other pulmonary embolism without acute cor pulmonale * Z79.01 jail (current) use of anticoagulants * D37.05 Neoplasm [...] SHYAM E OF THROAT Patient Notified 11/16/2019 [facility] [address] [facility],[address] [place] [address] [phone]
[2020-03-10] MEDS ORDERED: dexameTHASONE 4 MG/ML 1ML VIAL (J1100 PER 1MG) IV ONE (07:00)
[2020-03-10] MEDS ORDERED: LR 1,000 ML IV ONE (07:00)
--- OUTSIDE RECORDS SUMMARY | 2020-03-10 07:00 | CCD | Continuity of Care Document ---
Author Author Julisa Cody Organization Unknown Address [address] [address] Phone [phone] Care Team Providers Care Lone Lead Lineman Name Role Phone Shweta Cody AUTM [phone] [facility] AUTM [phone] Problems Active Problems Provider Date Migraine CARA [...] Reymundo Maharaj D.O. 09/26/2015 Calcium 500 +D [id number] Tablets bid CARA Jesus 04/17/2010 Aspir-81 81mg [...] H/L Range Note CBC With Differential 09/01/2019 [facility] [address] [place], [place] [address] [phone] White Blood Count 4.6 10 Normal 4.0-10.0 [...] 36.0-66.0 Lymph % 29.4 % Normal 24.0-44.0 [place] % 6.5 % High 0.0-5.0 Eos % 3.5 % High 0.0-3.0 Baso % 1.1 % High 0.0-1.0 Immature Granulocyte % 0.2 % Normal 0-3.0 Nucleated Red Blood Cell % 0.0 % Normal 0-0 Neutrophils # 2.7 10 Normal 1.5-8.5 Lymph # 1.4 10 Low 1.5-5.0 [place] # 0.3 10 Normal 0.0-0.8 Eos # 0.2 10 Normal 0.0-0.5 Baso # 0.1 10 Normal 0.0-0.2 Comprehensive Metabolic Profil 09/01/2019 [place] [id number] [phone] Glucose, Fasting 78 mg/dL Normal 70-100 Blood [...] 1.2 Normal 1.2-2.2 Laboratory test finding 09/01/2019 [facility] [address] [place] [address] [phone] Oxcarbazepine SEE SEPARATE REP <SEE NOTE> Normal 10-35 2 Basic Metabolic Panel 07/29/2019 [facility] Cash Register Servicer: Dr Marlon Delarosa [place], [place] [id number] [phone] Glucose 91 mg/dL 74 - 99 3 [...] mL/min >60 4 Complete Blood Count 07/29/2019 [facility] Cash Register Servicer: [place] [address] [phone] WBC 3.6 x10*3/UL Low 4.1 - 10.9 [...] Little GFR Left ESRD GFR <15 on BEHAVIORAL HEALTH AIDE 2 SEE SEPARATE REPORT Testing performed at reference lab . Report copy to follow on a separate form. 10/28/19 REF LAB#:[id number] 100-125 mg/dL PRE-DIABET ES/FASTING >126 mg/dL DIABETES/FASTING 4 CHRONIC KIDNEY DISEASE STAGI NG PER NKF STAGE I & II GFR >= 60 NORMAL TO MILDLY DECREASED STAGE III GFR 30-59 MODERATELY DECREASED STAGE IV GFR 15-29 SEVERELY DECREASED STAGE V GFR <15 VERY LITTLE GFR LEFT ESRD GFR <15 ON BEHAVIORAL HEALTH AIDE Procedures Date Code Description Status 05/09/2017 [id number] Colonoscopy Completed 2013 [id number] Mammogram Completed 06/12/2011 [id number] Mammogram Completed 10/11/2006 [id number] Mammogram Completed Medical Devices Description No Information Available Encounters Type Date Location Provider Dx Diagnosis Office Visit 11/06/2019 2:40p [facility] FNP 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 Office Visit 07/29/2019 2:40p [facility] FNP I26.99 Other pulmonary embolism without acute c or pulmonale Z79.01 [facility] (current) use of a nticoagulants G40.89 Other seizures E78.00 Pure hypercholesterolemia, u nspecified Assessments Date Code Description Provider 11/06/2019 D37.05 Neoplasm of uncertain behavior o f pharynx RIDDHI Haines 07/29/2019 I26.99 Other pulmonary embolism without acute cor pulmonale RIDDHI Haines 07/29/2019 Z79.01 [facility] (current) use of antic oagulants RIDDHI Haines 07/29/2019 G40.89 Other seizures Marla Yobany, F BALANCE RECESSER 07/29/2019 E78.00 Pure hypercholesterolemia, unspe cified RIDDHI Haines Plan of Treatment 11/06/2019 - Marla Yobany, TILE FITTER* 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 Bejarano at [facility]. * Referral:* Ryan Vides MD, Otolaryngology Functional Status Description No Information Available Mental Status Description No Information Available Referrals Refer to Reason for Referral Status Appt Date Ryan Vides MD CHRISTOPHE CONSULT FOR GROWTH ON RT AND LT SHYAM E OF THROAT Patient Notified 11/16/2019 [facility] [address] [facility] [address] [phone]
--- OUTSIDE RECORDS SUMMARY | 2020-03-10 07:01 | CCD ---
Author Author [facility] Organization [facility] Address Unknown Phone Unavailable Care Team Providers Care System Safety Engineer Name Role Phone David Delarosa MD Unavailable Unavailable David Delarosa MD Unavailable Unavailable David Delarosa MD Unavailable Unavailable David Delarosa MD Unavailable Unavailable David Delarosa MD Unavailable Unavailable David Delarosa MD Unavailable Unavailable David Delarosa MD Unavailable Unavailable David Delarosa MD Unavailable Unavailable David Delarosa MD Unavailable Unavailable David Delarosa MD Unavailable Unavailable David Delarosa MD Unavailable Unavailable David Delarosa MD Unavailable Unavailable David Delarosa MD Unavailable Unavailable David Delarosa MD Unavailable Unavailable David Delarosa MD Unavailable Unavailable David Delarosa MD Unavailable Unavailable David Delarosa MD Unavailable Unavailable David Delarosa MD Unavailable Unavailable David Delarosa MD Unavailable Unavailable David Delarosa MD Unavailable Unavailable David Delarosa MD Unavailable Unavailable David Delarosa MD Unavailable Unavailable David Delarosa MD Unavailable Unavailable David Delarosa MD Unavailable Unavailable David Delarosa MD Unavailable Unavailable David Delarosa MD Unavailable Unavailable David Delarosa MD Unavailable Unavailable GoesselDavid MD Unavailable Unavailable IsauraDavid MD Unavailable Unavailable GoesselDavid MD Unavailable Unavailable GoesselDavid MD Unavailable Unavailable GoesselDavid MD Unavailable Unavailable IsauraDavid MD Unavailable Unavailable GoesselDavid MD Unavailable Unavailable GoesselDavid MD Unavailable Unavailable GoesselDavid MD Unavailable Unavailable GoesselDavid MD Unavailable Unavailable IsauraDavid MD Unavailable Unavailable GoesselDavid MD Unavailable Unavailable IsauraDavid MD Unavailable Unavailable IsauraDavid MD Unavailable Unavailable IsauraDavid MD Unavailable Unavailable IsauraDavid MD Unavailable Unavailable GoesselDavid MD Unavailable Unavailable GoesselDavid MD Unavailable Unavailable IsauraDavid MD Unavailable Unavailable GoesselDavid MD Unavailable Unavailable IsauraDavid MD Unavailable Unavailable IsauraDavid MD Unavailable Unavailable SiauraDavid MD Unavailable Unavailable GoesselDavid MD Unavailable Unavailable GoesselDavid MD Unavailable Unavailable GoesselDavid MD Unavailable Unavailable GoesselDavid MD Unavailable Unavailable GoesselDavid MD Unavailable Unavailable GoesselDavid MD Unavailable Unavailable IsauraDavid MD Unavailable Unavailable IsauraDavid MD Unavailable Unavailable GoesselDavid MD Unavailable Unavailable GoesselDavid MD Unavailable Unavailable GoesselDavid MD Unavailable Unavailable IsauraDavid MD Unavailable Unavailable IsauraDavid green MD Unavailable Unavailable IsauraDavid MD Unavailable Unavailable IsauraDavid MD Unavailable Unavailable GoesselDavid green MD Unavailable Unavailable GoesselDavid MD Unavailable Unavailable GoesselDavid MD Unavailable Unavailable GoesselDavid green MD Unavailable Unavailable IsauraDavid green MD Unavailable Unavailable IsauraaDvid MD Unavailable Unavailable GoesselDavid MD Unavailable Unavailable GoesselDavid MD Unavailable Unavailable IsauraDavid MD Unavailable Unavailable GoesselDavid MD Unavailable Unavailable GoesselDavid MD Unavailable Unavailable GoesselDavid MD Unavailable Unavailable GoesselDavid MD Unavailable Unavailable GoesselDavid MD Unavailable Unavailable IsauraDavid MD Unavailable Unavailable GoesselDavid MD Unavailable Unavailable IsauraDavid MD Unavailable Unavailable GoesselDavid MD Unavailable Unavailable David Delarosa MD Unavailable Unavailable David Delarosa MD Unavailable Unavailable GoesselDavid green MD Unavailable Unavailable Yobany, Marla RECORDS MANAGEMENT ENGINEER Unavailable Unavailable Yobany, Marla RECORDS MANAGEMENT ENGINEER Unavailable Unavailable Yobany, Marla RECORDS MANAGEMENT ENGINEER Unavailable Unavailable Yobany, Marla RECORDS MANAGEMENT ENGINEER Unavailable Unavailable Yobany, Marla RECORDS MANAGEMENT ENGINEER Unavailable Unavailable Yobany, Marla RECORDS MANAGEMENT ENGINEER Unavailable Unavailable Yobany, Marla RECORDS MANAGEMENT ENGINEER Unavailable Unavailable Yobany, Marla RECORDS MANAGEMENT ENGINEER Unavailable Unavailable Yobany, Marla RECORDS MANAGEMENT ENGINEER Unavailable Unavailable Yobany, Marla RECORDS MANAGEMENT ENGINEER Unavailable Unavailable Yobany, Marla RECORDS MANAGEMENT ENGINEER Unavailable Unavailable Yobany, Marla RECORDS MANAGEMENT ENGINEER Unavailable Unavailable Yobany, Marla RECORDS MANAGEMENT ENGINEER Unavailable Unavailable Yobany, Marla RECORDS MANAGEMENT ENGINEER Unavailable Unavailable Yobany, Marla RECORDS MANAGEMENT ENGINEER Unavailable Unavailable Yobany, Marla RECORDS MANAGEMENT ENGINEER Unavailable Unavailable Yobany, Marla RECORDS MANAGEMENT ENGINEER Unavailable Unavailable Yobany, Marla RECORDS MANAGEMENT ENGINEER Unavailable Unavailable Yobany, Marla RECORDS MANAGEMENT ENGINEER Unavailable Unavailable Yobany, Marla RECORDS MANAGEMENT ENGINEER Unavailable Unavailable Yobany, Marla RECORDS MANAGEMENT ENGINEER Unavailable Unavailable Yobany, Marla RECORDS MANAGEMENT ENGINEER Unavailable Unavailable Yobany, Marla RECORDS MANAGEMENT ENGINEER Unavailable Unavailable Yobany, Marla RECORDS MANAGEMENT ENGINEER Unavailable Unavailable Yobany, Marla RECORDS MANAGEMENT ENGINEER Unavailable Unavailable Yobany, Marla RECORDS MANAGEMENT ENGINEER Unavailable Unavailable Yobany, Marla RECORDS MANAGEMENT ENGINEER Unavailable Unavailable SAGCAN, G SERA MD Unavailable Unavailable SAGCAN, G SERA MD Unavailable Unavailable SAGCAN, G SERA MD Unavailable Unavailable SAGCAN, G SERA MD Unavailable Unavailable SAGCAN, G SERA MD Unavailable Unavailable SAGCAN, G SERA MD Unavailable Unavailable SAGCAN, G SERA MD Unavailable Unavailable SAGCAN, G SERA MD Unavailable Unavailable SAGCAN, G SERA MD Unavailable Unavailable SAGCAN, G SERA MD Unavailable Unavailable SAGCAN, G SERA MD Unavailable Unavailable SAGCAN, G SERA MD Unavailable Unavailable SAGCAN, G SERA MD Unavailable Unavailable SAGCAN, G SERA MD Unavailable Unavailable SAGCAN, G SERA MD Unavailable Unavailable SAGCAN, G SERA MD Unavailable Unavailable SAGCAN, G SERA MD Unavailable Unavailable THUY MOREAU MD Unavailable Unavailable Edd Hinojosa MD Unavailable Unavailable Edd Hinojosa MD Unavailable Unavailable Edd Hinojosa MD Unavailable Unavailable Edd Hinojosa MD Unavailable Unavailable Edd Hinojosa MD Unavailable Unavailable Ali, Edd PALOMARES Unavailable Unavailable Ali, Edd PALOMARES Unavailable Unavailable Ali, Edd PALOMARES Unavailable Unavailable Ali, Edd PALOMARES Unavailable Unavailable Ali, Edd PALOMARES Unavailable Unavailable Ali, Edd PALOMARES Unavailable Unavailable Ali, Edd PALOMARES Unavailable Unavailable Ali, Edd Unavailable Unavailable Ali, Edd Unavailable Unavailable Ali, Edd MD Unavailable Unavailable Ali, Edd Unavailable Unavailable Ali, Edd Unavailable Unavailable Ali, Edd PALOMARES Unavailable Unavailable Ali, Edd PALOMARES Unavailable Unavailable Ali, Edd PALOMARES Unavailable Unavailable Ali, Edd MD Unavailable Unavailable Ali, Edd MD Unavailable Unavailable Ali, Edd MD Unavailable Unavailable Ali, Edd MD Unavailable Unavailable Ali, Edd MD Unavailable Unavailable Ali, Edd Unavailable Unavailable Ali, Edd Unavailable Unavailable Ali, Edd PALOMARES Unavailable Unavailable Ali, Edd Unavailable Unavailable Ali, Edd MD Unavailable Unavailable Ali, Edd MD Unavailable Unavailable Ali, Ded MD Unavailable Unavailable Ali, Edd MD Unavailable Unavailable Ali, Edd PALOMARES Unavailable Unavailable Ali, Edd PALOMARES Unavailable Unavailable Ali, Edd PALOMARES Unavailable Unavailable Ali, Edd PALOMARES Unavailable Unavailable Ali, Edd PALOMARES Unavailable Unavailable Ali, Edd PALOMARES Unavailable Unavailable Ali, Edd PALOMARES Unavailable Unavailable Ali, Edd PALOMARES Unavailable Unavailable Ali, Edd PALOMARES Unavailable Unavailable Ali, Edd PALOMARES Unavailable Unavailable Ali, Edd PALOMARES Unavailable Unavailable Ali, Edd PALOMARES Unavailable Unavailable Ali, Edd PALOMARES Unavailable Unavailable Ali, Edd PALOMARES Unavailable Unavailable Ali, dEd PALOMARES Unavailable Unavailable Ali, Edd PALOMARES Unavailable Unavailable Edla, Pedro Alvarez MD Unavailable Unavailable Edla, Pedro Alvarez MD Unavailable Unavailable Edla, Pedro Alvarez MD Unavailable Unavailable Edla, Pedro Alvarez MD Unavailable Unavailable Edla, Pedro Alvarez MD Unavailable Unavailable Edla, Pedro Alvarez MD Unavailable Unavailable Edla, Pedro Alvarez MD Unavailable Unavailable Edla, Pedro Alvarez MD Unavailable Unavailable Edla, Pedro Alvarez MD Unavailable Unavailable Edla, Pedro Alvarez MD Unavailable Unavailable MELODY, J Shweta ANP Unavailable Unavailable MELODY, J Shweta ANP Unavailable Unavailable MELODY, J Shweta ANP Unavailable Unavailable MELODY, J Shweta ANP Unavailable Unavailable MELODY, J Shweta ANP Unavailable Unavailable MELODY, J Shweta ANP Unavailable Unavailable MELODY, J Shweta ANP Unavailable Unavailable MELODY, J Shweta ANP Unavailable Unavailable MELODY, J Shweta ANP Unavailable Unavailable MELODY, J Shweta ANP Unavailable Unavailable MELODY, J Shweta ANP Unavailable Unavailable MELODY, J Shweta ANP Unavailable Unavailable MELODY, J Shweta ANP Unavailable Unavailable MELODY, J Shweta ANP Unavailable Unavailable MELODY, J Shweta ANP Unavailable Unavailable MELODY, J Shweta ANP Unavailable Unavailable MELODY, J Shweta ANP Unavailable Unavailable MELODY, J Shweta ANP Unavailable Unavailable MELODY, J Shweta ANP Unavailable Unavailable MELODY, J Shweta ANP Unavailable Unavailable MELODY, J Shweta ANP Unavailable Unavailable MELODY, J Shweta ANP Unavailable Unavailable MELODY, J Shweta ANP Unavailable Unavailable MELODY, J Shweta ANP Unavailable Unavailable MELODY, J Shweta ANP Unavailable Unavailable MELODY, J Shweta ANP Unavailable Unavailable MELODY, J Shweta ANP Unavailable Unavailable MELODY, J Shweta ANP Unavailable Unavailable MELODY, J Shweta ANP Unavailable Unavailable MELODY, J Shweta ANP Unavailable Unavailable MELODY, J Shweta ANP Unavailable Unavailable MELODY, J Shweta ANP Unavailable Unavailable MELODY, J Shweta ANP Unavailable Unavailable MELODY, J Shweta ANP Unavailable Unavailable MELODY, J Shweta ANP Unavailable Unavailable MELODY, J Shweta ANP Unavailable Unavailable MELODY, J Shweta ANP Unavailable Unavailable MELODY, J Shweta ANP Unavailable Unavailable MELODY, J Shweta ANP Unavailable Unavailable MELODY, J Shweta ANP Unavailable Unavailable MELODY, J Shweta ANP Unavailable Unavailable MELODY, J Shweta ANP Unavailable Unavailable MELODY, J Shweta ANP Unavailable Unavailable MELODY, J Shweta ANP Unavailable Unavailable MELODY, J Shweta ANP Unavailable Unavailable MELODY, J Shweta ANP Unavailable Unavailable MELODY, J Shweta ANP Unavailable Unavailable MELODY, J Shweta ANP Unavailable Unavailable MELODY, J Shweta ANP Unavailable Unavailable MELODY, J Shweta ANP Unavailable Unavailable MELODY, J Shweta ANP Unavailable Unavailable MELODY, J Shweta ANP Unavailable Unavailable MELODY, J Shweta ANP Unavailable Unavailable MELODY, J Shweta ANP Unavailable Unavailable MELODY, J Shweta ANP Unavailable Unavailable MELODY, J Shweta ANP Unavailable Unavailable MELODY, J Shweta ANP Unavailable Unavailable MELODY, J Shweta ANP Unavailable Unavailable MELODY, J Shweta ANP Unavailable Unavailable MELODY, J Shweta ANP Unavailable Unavailable MELODY, J Shweta ANP Unavailable Unavailable MELODY, J Shweta ANP Unavailable Unavailable MELODY, J Shweta ANP Unavailable Unavailable MELODY, J Shweta ANP Unavailable Unavailable MELODY, J Shweta ANP Unavailable Unavailable MELODY, J Shweta ANP Unavailable Unavailable Re-disclosure Warning The records that you are about to access may contain information from federally-assisted alcohol or drug abuse programs. If such information is present, then the following federally mandated warning applies: This information has been disclosed to you from records protected by federal confidentiality rules (42 CFR part 2). The federal rules prohibit you from making any further disclosure of this information unless further disclosure is expressly permitted by the written consent of the person to whom it pertains or as otherwise permitted by 42 CFR part 2. A general authorization for the release of medical or other information is NOT sufficient for this purpose. The Federal rules restrict any use of the information to criminally investigate or prosecute any alcohol or drug abuse patient.The records that you are about to access may contain highly sensitive health information, the redisclosure of which is protected by Article 27-F of the [facility] Public Health law. If you continue you may have access to information: Regarding HIV / AIDS; Provided by facilities licensed or operated by the [facility] Office of Mental Health; or Provided by the [facility] Office for People With Developmental Disabilities. If such information is present, then the following [facility] mandated warning applies: This information has been disclosed to you from confidential records which are protected by state law. State law prohibits you from making any further disclosure of this information without the specific written consent of the person to whom it pertains, or as otherwise permitted by law. Any unauthorized further disclosure in violation of state law may result in a fine or detention sentence or both. A general authorization for the release of medical or other information is NOT sufficient authorization for further disc losure. Family History Family Member Name Family Member Gender Family Member Status Date o f Status Description Data Source(s) Unknown Male Problem [facility] ([facility]) Encounters Encounter Providers Location Date Indications Data Source(s ) Outpatient Attender: Marlno Chavarria 0 03/02/2020 12:30:00 PM EST [facility] ([facility] ) Outpatient [address] [place] [address] 01/27/2020 12:00:00 AM EST eCW1 ([facility]) Outpatient Attender: Shweta Chavarria 05/2019 10:15:00 AM EST [facility] ([facility] ) Outpatient Attender: Edd Hinojosa MD Main office - [place] 11/13/2019 10:45:00 AM EDT [facility] ([facility]) Outpatient Attender: Marla Chavarria 02:40:00 PM EDT [facility] ([facility] ) Outpatient Attender: Edd Hinojosa MD Main office - [place] 08/20/2019 11:15:00 AM EDT [facility] ([facility]) Outpatient Attender: Marla Chavarria 02:40:00 PM EDT [facility] ([facility] ) Outpatient Attender: Edd Hinojosa MD Main office - [place] 07/09/2019 11:30:00 AM EDT [facility] ([facility] ) Outpatient Attender: Marla Chavarria 08:00:00 AM EDT [facility] ([facility] ) Outpatient Attender: Marla Chavarria 01:40:00 PM EDT [facility] ([facility] ) Outpatient Attender: Marla Chavarria 01:40:00 PM EDT [facility] ([facility] ) Outpatient Attender: Edd Hinojosa MD Main office - [place] 04/22/2019 11:15:00 AM EDT [facility] ([facility]) Outpatient Attender: Edd Hinojosa MD Main office - [place] 03/18/2019 11:30:00 AM EST [facility] ([facility]) Outpatient Attender: Shweta Chavarria 09:45:00 AM EST [facility] ([facility] ) Outpatient Attender: Shweta Chavarria 11/2018 10:30:00 AM EST [facility] ([facility] ) Inpatient Attender: Antonio Miller mitter: SERA EASTMAN MDConsultant: THUY MOREAU MD 01/15/2019 10:24:31 AM EST [facility] Immunizations Vaccine Date Status Description Data Source(s) This CVX code allows reporting of a vacc ination when formulation is unknown (for example, when recording a Influenza vaccination when noted on a vaccination card) 11/25/2019 11:28:00 AM EDT completed MEDEN T ([facility]) Medications Medication Brand Name Start Date Product Form Dose Route Admi nistrative Instructions Pharmacy Instructions Status Indications Reaction Description Data Source(s) oxcarbazepine 300 MG Oral Tablet [Trileptal] Trileptal 12/16/2019 12:00:00 AM EST ORAL completed [facility] ([facility]) dexlansoprazole 60 MG Delayed Release Oral Capsule [Dexilant ] Dexilant 11/30/2019 12:00:00 AM EDT active [facility] ([facility]) Sucralfate 1000 MG Oral Tablet [Carafate] Carafate 10/06/2019 1 2:00:00 AM EDT ORAL active [facility] ([facility] ) oxcarbazepine 600 MG Oral Tablet Oxcarbazepine 08/20/2019 12:00:00 AM EDT ORAL active [facility] ([facility], ) No Active Medications 07/09/2019 12:00:00 AM EDT completed [facility] ([facility] ) oxcarbazepine 300 MG Oral Tablet Oxcarbazepine 07/09/2019 12:00:00 AM EDT ORAL completed [facility] ([facility] ) Dicyclomine Hydrochloride 10 MG Oral Capsule Dicyclomine HCL 05/06/2019 12:00:00 AM EDT active [facility] ([facility]) lamotrigine 100 MG Oral Tablet Lamotrigine 04/22/2019 12:00:00 AM EDT completed [facility] ([facility] ) No Active Medications 04/22/2019 12:00:00 AM EDT completed [facility] ([facility] ) lamotrigine 25 MG Oral Tablet Lamotrigine 04/22/2019 12:00:00 AM EDT ORAL completed [facility] ([facility] ) lacosamide 150 MG Oral Tablet [Vimpat] Vimpat 03/18/2019 12:00:00 AM EST ORAL completed [facility] ([facility] rivaroxaban 20 MG Oral Tablet [Xarelto] Xarelto 03/12/2019 12:00:0 0 AM EST ORAL active [facility] ([facility]) Azelastine HCL (Nasal) Azelastine HCL (Nasal) 03/04/2019 12:00:[address] active [facility] ([facility]) atorvastatin 10 MG Oral Tablet Atorvastatin Calcium 01/22/2019 1 2:00:00 AM EST active [facility] ( [facility]) lacosamide 200 MG Oral Tablet [Vimpat] Vimpat 01/20/2019 12:00:00 A M EST completed [facility] ([facility]) Azithromycin 250 MG Oral Tablet Azithromycin 01/20/2019 12:00:00 AM EST completed [facility] ([facility]) lacosamide 100 MG Oral Tablet [Vimpat] Vimpat 01/20/2019 12:00:00 AM EST ORAL completed [facility] ([facility]) Warfarin Sodium 5 MG Oral Tablet [Coumadin] Coumadin 04/2018 12:00:00 AM EST completed [facility] ([facility]) Warfarin Sodium 5 MG Oral Tablet Warfarin Sodium 12/09/2018 12:00:00 AM EDT ORAL completed [facility] ([facility]) Insurance Providers Payer name Policy type / Coverage type Policy ID Covered democrat ID Covered democrat's relationship to ulloa Policy [place] Plan Information [facility] CHOICE PLUS [id number] SP [id number] [facility] [id number] [facility] [id number] [facility] [id number] [place] Medigap Part B [id number] Self [id number] [place] Medigap Part B [id number] Self [id number] [place] Commercial [id number] Self [id number] ANSI-Commercial [id number] [facility] [place] CHOICE PL[place] [id number] SP [id number] [place] Medigap Part B [id number] Self [id number] [employer] [place] CHOICE PLUS [id number] SP [id number] [place] Tr[place] Commercial [id number] Self [id number] [facility] O [id number] S [id number] BS [place] Trad/[place] Commercial [id number] Self [id number] [facility] MANAGEMENT [facility] [id number] SP [id number] [facility] O [id number] S [id number] [place] Trad/[place] Commercial [id number] Self [id number] [place] Trad/[place] Commercial [id number] Self [id number] [employer] [place] WATN 306/806 [id number] SP [id number] SELF PAY ONLY UNAVAILABLE UNAV AILABLE [place]ad/[place] Medigap Part B Self [place] Trad/[place] Commercial Self [employer]CE[place] BCBS B [id number] S [id number] [employer] [place] 306/806 [id number] SP [id number] [employer] [place] 306/806 [id number] SP [id number] Problems, Conditions, and Diagnoses Code Display Name Description Problem Type Effective Dates Data Source(s) 231750102 Migraine without aura, not refractory Mi graine without aura, not refractory Problem 01/20/2019 12:00:00 AM EST [facility] ([facility] ) Results ID Date Data Source [id number] 03/05/2020 11:30:00 AM EST [place] Name Value Range Interpretation Code Description Data Marlena rce(s) Supporting Document(s) SARS coronavirus 2 RNA Not Detected [facility] [place] This lab was ordered by [facility] and reported by [facility]. ID Date Data Source [id number] 09/01/2019 01:27:00 PM EDT [facility] ([facility]) Name Value Range Interpretation Code Description Data Marlena rce(s) Supporting Document(s) Oxcarbazepine [Moles/volume] in Serum or Plasma Laboratory test res ult 10-35 MEDTWYLA ([facility]) SEE SEPARATE REPORT Testing performed at reference lab . Report copy to follow on a separate form. 10/28/19 REF LAB#:[id number] ID Date Data Source [id number] 09/01/2019 01:27:00 PM EDT [facility] ([facility]) Name Value Range Interpretation Code Description Data Marlena rce(s) Supporting Document(s) Blood Urea Nitrogen 12 mg/dL 7-18 [facility] ([facility]) Glucose, Fasting 78 mg/dL 70-100 [facility] ([facility]) Creatinine For GFR 1.15 mg/dL 0.55-1.30 [facility]) Glomerular Filtration Rate 52.0 MED ENT ([facility]) <content>Units are mL/min/1.73 m2</content>
<content></content>
<content>Chronic Kidney Disease Staging per NKF:</content>
<content></content>
<content>Stage I & II GFR >=60 Normal to Mildly Decreased</content>
<content>Stage III GFR 30- 59 Moderately Decreased</content>
<content>Stage IV GFR 15-29 Severely Decreased</content>
<content>Stage V GFR <15 Very Little GFR Left</content>
<content>ESRD GFR <15 on PERSONAL INJURY PARALEGAL</content>
<content></content> Sodium Level 143 meq/L 136-145 [facility] ([facility]) Potassium Serum 4.7 meq/L 3.5-5.1 [facility] ([facility]) Carbon Dioxide Level 24 meq/L 21-32 [facility] ([facility]) Chloride Level 113 meq/L 98-107 [facility] ([facility]) Ast/Sgot 46 U/L 7-37 [facility] [facility] Calcium Level 8.9 mg/dL 8.5-10.1 [facility] ([facility]) Anion Gap 6 meq/L 8-16 [facility] [facility] Alt/SGPT 67 U/L 12-78 [facility] [facility] Bilirubin,Total 0.3 mg/dL 0.2-1.0 [facility] ([facility]) Alkaline Phosphatase 85 U/L 45-117 [facility] Albumin 3.5 GM/DL 3.2-5.2 [facility] ([place] [facility]) Total Protein 6.5 GM/DL 6.4-8.2 [facility] ([facility]) Albumin/Globulin Ratio 1.2 1.2-2.2 [facility] ([facility]) ID Date Data Source [id number] 09/01/2019 01:27:00 PM EDT [facility] ([facility]) Name Value Range Interpretation Code Description Data Marlena rce(s) Supporting Document(s) White Blood Count 4.6 10 4.0-10.0 [facility] ([facility]) Hemoglobin 11.9 g/dL 12.0-15.5 [facility] [facility] Red Blood Count 4.32 10 4.00-5.40 [facility] ([facility]) Hematocrit 36.5 % 36.0-47.0 [facility] [facility] Mean Corpuscular Hemoglobin 27.5 pg 27.0-33.0 ME DENT ([facility]) Mean Corpuscular Volume 84.5 fl 80.0-96.0 [facility] ([facility]) Mean Corpuscular HGB Conc 32.6 g/dL 32.0-36.5 MEDE NT ([facility]) Red Cell Distribution Width 15.7 % 11.5-14.5 ME DENT ([facility]) Platelet Count, Automated 268 10 150-450 MEDE NT ([facility]) Neutrophils % 59.3 % 36.0-66.0 [facility] ([facility]) Lymph % 29.4 % 24.0-44.0 [facility] Eos % 3.5 % 0.0-3.0 [facility] Baso % 1.1 % 0.0-1.0 [facility]) [place] % 6.5 % 0.0-5.0 [facility]) Immature Granulocyte % 0.2 % 0-3.0 [facility] ([facility]) Neutrophils # 2.7 10 1.5-8.5 [facility] ([facility]) Nucleated Red Blood Cell % 0.0 % 0-0 [facility] ([facility]) Lymph # 1.4 10 1.5-5.0 [facility] Eos # 0.2 10 0.0-0.5 [facility] [place] # 0.3 10 0.0-0.8 [facility] Baso # 0.1 10 0.0-0.2 [facility] ID Date Data Source [id number] 09/01/2019 01:27:00 PM EDT [facility] ([facility], ) Name Value Range Interpretation Code Description Data Marlena rce(s) Supporting Document(s) Oxcarbazepine [Moles/volume] in Serum or Plasma Laboratory test res ult 10-35 [facility] ([facility], ) SEE SEPARATE REPORT Testing performed at reference lab . Report copy to follow on a separate form. 10/28/19 REF LAB#:[id number] ID Date Data Source [id number] 09/01/2019 01:27:00 PM EDT [facility] ([facility], ) Name Value Range Interpretation Code Description Data Marlena rce(s) Supporting Document(s) Glucose, Fasting 78 mg/dL 70-100 [facility] ([facility], ) Blood Urea Nitrogen 12 mg/dL 7-18 [facility] ([facility], ) Glomerular Filtration Rate 52.0 [facility] ([facility], ) <content>Units are mL/min/1.73 m2</content>
<content></content>
<content>Chronic Kidney Disease Staging per NKF:</content>
<content></content>
<content>Stage I & II GFR >=60 Normal to Mildly Decreased</content>
<content>Stage III GFR 30- 59 Moderately Decreased</content>
<content>Stage IV GFR 15-29 Severely Decreased</content>
<content>Stage V GFR <15 Very Little GFR Left</content>
<content>ESRD GFR <15 on PERSONAL INJURY PARALEGAL</content>
<content></content> Creatinine For GFR 1.15 mg/dL 0.55-1.30 [facility] ([facility], ) Sodium Level 143 meq/L 136-145 [facility] ([facility]) Carbon Dioxide Level 24 meq/L 21-32 [facility] ([facility]) Potassium Serum 4.7 meq/L 3.5-5.1 [facility] ([facility]) Chloride Level 113 meq/L 98-107 [facility] ([facility]) Calcium Level 8.9 mg/dL 8.5-10.1 [facility] ([facility]) Ast/Sgot 46 U/L 7-37 [facility] ([facility]) Anion Gap 6 meq/L 8-16 [facility] ([facility]) Bilirubin,Total 0.3 mg/dL 0.2-1.0 [facility] ([facility]) Alkaline Phosphatase 85 U/L 45-117 [facility] ([facility]) Alt/SGPT 67 U/L 12-78 [facility] ([facility]) Albumin 3.5 GM/DL 3.2-5.2 [facility] ([facility]) Albumin/Globulin Ratio 1.2 1.2-2.2 [facility] ([facility]) Total Protein 6.5 GM/DL 6.4-8.2 [facility] ([facility]) ID Date Data Source [id number] 09/01/2019 01:27:00 PM EDT [facility] ([facility]) Name Value Range Interpretation Code Description Data Marlena rce(s) Supporting Document(s) White Blood Count 4.6 10 4.0-10.0 [facility] ([facility], ) Hemoglobin 11.9 g/dL 12.0-15.5 [facility] ([facility], ) Red Blood Count 4.32 10 4.00-5.40 [facility] ([facility]) Hematocrit 36.5 % 36.0-47.0 [facility] ([facility]) Mean Corpuscular HGB Conc 32.6 g/dL 32.0-36.5 [facility] ([facility]) Mean Corpuscular Volume 84.5 fl 80.0-96.0 M EDENT ([facility]) Mean Corpuscular Hemoglobin 27.5 pg 27.0-33.0 [facility] ([facility]) Red Cell Distribution Width 15.7 % 11.5-14.5 [facility] ([facility]) Platelet Count, Automated 268 10 150-450 [facility] ([facility]) Neutrophils % 59.3 % 36.0-66.0 [facility] ([facility]) Lymph % 29.4 % 24.0-44.0 [facility] ([facility]) [place] % 6.5 % 0.0-5.0 [facility] ([facility]) Eos % 3.5 % 0.0-3.0 [facility] ([facility]) Nucleated Red Blood Cell % 0.0 % 0-0 [facility] ([facility]) Baso % 1.1 % 0.0-1.0 [facility] ([facility]) Immature Granulocyte % 0.2 % 0-3.0 [facility] [place] # 0.3 10 0.0-0.8 [facility] ([facility]) Lymph # 1.4 10 1.5-5.0 [facility] ([facility]) Neutrophils # 2.7 10 1.5-8.5 [facility] ([facility]) Eos # 0.2 10 0.0-0.5 [facility] ([facility]) Baso # 0.1 10 0.0-0.2 [facility] ([facility]) ID Date Data Source [id number] 07/29/2019 02:50:00 PM EDT [facility] ([facility]) Name Value Range Interpretation Code Description Data Marlena rce(s) Supporting Document(s) Leukocytes [#/volume] in Blood by Automated count 3.6 x10*3/UL 4.1-10 .9 [facility] ([facility]) Hemoglobin [Mass/volume] in Blood 12.1 g/dL 12.0-18.0 [facility] ([facility]) Hematocrit [Volume Fraction] of Blood by Automated count 36.0 % 3 7.0-51.0 [facility] ([facility]) Erythrocytes [#/volume] in Blood by Automated count 4.43 x10*6/UL 4.2 0-6.30 [facility] ([facility]) MCHC 33.6 g/dL 31.0-38.0 [facility] [facility] MCV 81.3 fL 80.0-97.0 [facility] [facility] MCH 27.3 pg 26.0-32.0 [facility] [facility]) Platelets [#/volume] in Blood by Automated count 233 x10*3/UL 140-440 [facility] ([facility]) Erythrocyte distribution width [Ratio] by Automated count 14.5 % 11.6-13.7 [facility] ([facility]) MPV 8.7 FL 7.8-11.0 [facility] [facility] Neut % 56.7 % 37.0-92.0 [facility] [facility]) Mid % 7.5 % 1.7-9.3 [facility] [facility] Lymph % 35.8 % 10.0-58.5 [facility] [facility]) Lymph # 1.3 x10*3/UL 0.6-4.1 [facility] ([facility]) Neut # 2.0 x10*3/UL 2.0-7.8 [facility] ([facility]) Mid # 0.3 x10*3/UL 0.1-0.6 [facility] ([facility]) ID Date Data Source [id number] 07/29/2019 02:50:00 PM EDT [facility] ([facility]) Name Value Range Interpretation Code Description Data Marlena rce(s) Supporting Document(s) Glucose [Mass/volume] in Serum or Plasma 91 mg/dL 74-99 [facility] ([facility]) 100-125 mg/dL PRE-DIABETES/FASTING >126 mg/dL DIABETES/FASTING Sodium [Moles/volume] in Serum or Plasma 143 meq/L 136-145 [facility] ([facility]) Urea nitrogen [Mass/volume] in Serum or Plasma 13 mg/dL 7-18 [facility] ([facility]) Creatinine 1.1 mg/dL 0.6-1.3 [facility] ([facility]) Carbon dioxide, total [Moles/volume] in Serum or Plasma 25 meq/L 21 -32 [facility] ([facility]) Calcium [Mass/volume] in Serum or Plasma 8.9 mg/dL 8.5-10.1 [facility] ([facility]) Potassium [Moles/volume] in Serum or Plasma 4.5 meq/L 3.5-5.1 [facility] ([facility]) Chloride [Moles/volume] in Serum or Plasma 109 meq/L 98-107 [facility] Glomerular filtration rate/1.73 sq M pre dicted among non-blacks [Volume Rate/Area] in Serum or Plasma by Creatinine-based formula (MDRD) 52 mL/min [facility]) Glomerular filtration rate/1.73 sq M pre dicted among blacks [Volume Rate/Area] in Serum or Plasma by Creatinine-based formula (MDRD) Laboratory test result [facility]) <content>CHRONIC KIDNEY DISEASE STAGING PER NKF</content>
<content></content>
<content>STAGE I & II GFR >= 60 NORMAL TO MILDLY DECREASED</content>
<content>STAGE III GFR 30-59 MODERATELY DECREASED</content>
<content>STAGE IV GFR 15-29 SEVERELY DECREASED</content>
<content>STAGE V GFR <15 VERY LITTLE GFR LEFT</content>
<content>ESRD GFR <15 ON PERSONAL INJURY PARALEGAL</content>
<content></content> ID Date Data Source [id number] 05/02/2019 10:24:00 PM EDT [facility] ([facility]) Name Value Range Interpretation Code Description Data Marlena rce(s) Supporting Document(s) PH,Urine 6.0 units 5.0-9.0 [facility]) Color, Urine Laboratory test result [facility] ([facility]) Appearance, Urine Laboratory test result [facility] ([facility]) Protein, Urine Auto Laboratory test result [facility] ([facility]) Glucose, Urine (Ua) Auto Laboratory test result [facility] ([facility]) Specific Glen Urine Auto 1.012 1.002-1.035 [facility] ([facility]) Urobilinogen, Urine Auto 0.2 mg/dL 0.0-2.0 [facility] T ([facility]) Bilirubin, Urine Auto Laboratory test result [facility] ([facility]) Ketone, Urine Auto Laboratory test result [facility] ([facility]) Nitrite, Urine Auto Laboratory test result [facility] ([facility]) Blood, Urine Blood Laboratory test result [facility] ([facility]) WBC, Urine Auto 2 /HPF 0-3 [facility] ([facility]) Leukocyte Esterase, Urine Auto Laboratory test result [facility] ([facility]) Bacteria, Urine Auto Laboratory test result [facility] ([facility]) RBC, Urine Auto 1 /HPF 0-3 [facility] ([facility]) Squamous Epithelial Cell Ur AU 0 /HPF 0-6 [facility] ([facility]) Mucus, Urine Laboratory test result [facility] NT ([facility]) Hyaline Cast, Urine Auto 1 /LPF 0-1 [facility] T ([facility]) ID Date Data Source [id number] 05/02/2019 10:21:00 PM EDT [facility] ([facility]) Name Value Range Interpretation Code Description Data Marlena rce(s) Supporting Document(s) Lipoprotein lipase [Enzymatic activity/volume] in Serum or P lasma 343 U/L 73-393 [facility] ([facility]) ID Date Data Source [id number] 05/02/2019 10:21:00 PM EDT [facility] ([facility]) Name Value Range Interpretation Code Description Data Marlena rce(s) Supporting Document(s) Creatinine For GFR 1.10 mg/dL 0.55-1.30 [facility] ([facility]) Glucose, Fasting 87 mg/dL 70-100 [facility] ([facility]) Blood Urea Nitrogen 14 mg/dL 7-18 [facility] ([facility]) Potassium Serum 3.9 meq/L 3.5-5.1 [facility] ([facility]) Sodium Level 140 meq/L 136-145 [facility] ([facility]) Glomerular Filtration Rate 54.9 [facility] ([facility]) <content>Units are mL/min/1.73 m2</content>
<content></content>
<content>Chronic Kidney Disease Staging per NKF:</content>
<content></content>
<content>Stage I & II GFR >=60 Normal to Mildly Decreased</content>
<content>Stage III GFR 30-59 Moderately Decreased</content>
<content>Stage IV GFR 15-29 Severely Decreased</content>
<content>Stage V GFR <15 Very Little GFR Left</content>
<content>ESRD GFR <15 on PERSONAL INJURY PARALEGAL</content>
<content></content> Chloride Level 110 meq/L 98-107 [facility] ([facility]) Carbon Dioxide Level 22 meq/L 21-32 [facility] ([facility]) Anion Gap 8 meq/L 8-16 [facility] [facility]) Calcium Level 8.5 mg/dL 8.5-10.1 [facility] ([facility]) ID Date Data Source [id number] 05/02/2019 10:21:00 PM EDT [facility] ([facility]) Name Value Range Interpretation Code Description Data Marlena rce(s) Supporting Document(s) Alkaline Phosphatase 83 U/L 45-117 [facility] ([facility]) Ast/Sgot 24 U/L 7-37 [facility] [facility]) Bilirubin,Total 0.3 mg/dL 0.2-1.0 [facility] ([facility]) Alt/SGPT 33 U/L 12-78 [facility] [facility]) Albumin 3.4 GM/DL 3.2-5.2 [facility] [facility] Total Protein 6.7 GM/DL 6.4-8.2 [facility]) Bilirubin,Direct 0.1 mg/dL 0.0-0.2 [facility] ([facility]) Albumin/Globulin Ratio 1.03 1.00-1.93 [facility] ([facility]) ID Date Data Source [id number] 05/02/2019 10:21:00 PM EDT [facility] ([facility]) Name Value Range Interpretation Code Description Data Marlena rce(s) Supporting Document(s) CPK Creatine Phosphokinase 82 U/L 26-192 [facility] ([facility]) MB/CK Relative Index 1.22 [facility]) <content>DIAGNOSIS CRITERIA</content>
<content>MMB ng/ml Relative Index (RI)</content>
<content>NON-AMI < or = 5 N/A</content>
<content>MURRAY ZONE > 5 < or = 4</content>
<content>AMI > 5 > 4</content>
<content></content> CK-MB Value Mass Laboratory test [facility]) Troponin I Laboratory test result [facility] ([facility]) <content>Troponin I Reference Interval f or Siemens [place] LOCI:</content>
<content></content>
<content>99th Percentile= 0.00-0.045 ng/ml</content>
<content></content>
<content>Risk Stratification:</content>
<content><= 0.10 ng/ml Decreased Risk for Adverse Clinical</content>
<content>Events.</content>
<content>0.10-1.50 ng/ml Increased Risk for Adverse Clinical</content>
<content>Events. Evaluation of additional</content>
<content>criterion and/or repeat testing in 2-6</content>
<content>hours is suggested to rule out myocardial</content>
<content>damage.</content>
<content>>= 1.50 ng/ml Indicative of Myocardial Injury.</content>
<content></content> ID Date Data Source [id number] 05/02/2019 10:21:00 PM EDT [facility] ([facility]) Name Value Range Interpretation Code Description Data Marlena rce(s) Supporting Document(s) Prothrombin Time 15.6 s 11.8-14.0 [facility] ([facility]) Inr 1.27 [facility] [facility] THERAPUTIC HUMAN INR VALUES INDICATIONS NORMAL RANGES PROPHYLAXIS/TREATMENT OF: VENOUS THROMBOSIS 2.0-3.0 PULMONARY EMBOLISM 2.0-3.0 PREVENTION OF SYSTEMIC EMBOLISM FROM: TISSUE HEART VALVES 2.0-3.0 ACUTE MYOCARDIAL INFARCTION 2.0-3.0 VALVULAR HEART DISEASE 2.0-3.0 ATRIAL FIBRILLATION 2.0-3.0 MECHANICAL VALVES(HIGH RISK) 2.5-3.5 RECURRENT MYOCARDIAL INFARCTION 2.5-3.5 Partial Thromboplastin Time 28.3 s 25.0-38.4 [facility] ([facility]) ID Date Data Source [id number] 05/02/2019 10:21:00 PM EDT [facility] ([facility]) Name Value Range Interpretation Code Description Data Marlena rce(s) Supporting Document(s) White Blood Count 5.9 10 4.0-10.0 [facility] ([facility]) Hematocrit 36.0 % 36.0-47.0 [facility] Hemoglobin 11.8 g/dL 12.0-15.5 [facility] Red Blood Count 4.28 10 4.00-5.40 [facility] ([facility]) Mean Corpuscular HGB Conc 32.8 g/dL 32.0-36.5 [facility] ([facility]) Mean Corpuscular Hemoglobin 27.6 pg 27.0-33.0 [facility] ([facility]) Mean Corpuscular Volume 84.1 fl 80.0-96.0 [facility] ([facility]) Lymph % 24.4 % 24.0-44.0 [facility]) Platelet Count, Automated 231 10 150-450 [facility] ([facility]) Neutrophils % 65.4 % 36.0-66.0 [facility] ([facility]) Red Cell Distribution Width 13.4 % 11.5-14.5 [facility] ([facility]) Eos % 3.0 % 0.0-3.0 [facility]) Baso % 0.7 % 0.0-1.0 [facility]) [place] % 6.2 % 0.0-5.0 [facility]) Immature Granulocyte % 0.3 % 0-3.0 [facility] ([facility]) Nucleated Red Blood Cell % 0.0 % 0-0 [facility] ([facility]) Neutrophils # 3.9 10 1.5-8.5 [facility] ([facility]) Lymph # 1.5 10 1.5-5.0 [facility]) Eos # 0.2 10 0.0-0.5 [facility]) [place] # 0.4 10 0.0-0.8 [facility]) Baso # 0.0 10 0.0-0.2 [facility]) ID Date Data Source [id number] 03/09/2019 12:54:00 PM EST [facility] ([facility], ) Name Value Range Interpretation Code Description Data Marlena rce(s) Supporting Document(s) Lacosamide [Mass/volume] in Serum or Plasma 12.4 ug/mL 5.0-10.0 [facility] ([facility], ) This test was developed and its performa nce characteristics determined by [facility]. It has not been cleared or approved by the Food and Drug Administration. Limit of Detection 0.5 . Mean plasma concentrations following maintenance dose 200 mg/day 4.99 +/- 2.51 ug/mL 400 mg/day 9.35 +/- 4.22 ug/mL 600 mg/day 12.46 +/- 5.60 ug/mL Performed at: - [facility] [id number] [address] Hand: Aurelio Jimenez MD, Phone: [phone] ID Date Data Source [id number] 03/09/2019 12:54:00 PM EST [facility] ([facility], ) Name Value Range Interpretation Code Description Data Marlena rce(s) Supporting Document(s) Glucose, Fasting 93 mg/dL 70-100 [facility] ([facility], ) Glomerular Filtration Rate 53.2 [facility] ([facility]) <content>Units are mL/min/1.73 m2</content>
<content></content>
<content>Chronic Kidney Disease Staging per NKF:</content>
<content></content>
<content>Stage I & II GFR >=60 Normal to Mildly Decreased</content>
<content>Stage III GFR 30- 59 Moderately Decreased</content>
<content>Stage IV GFR 15-29 Severely Decreased</content>
<content>Stage V GFR <15 Very Little GFR Left</content>
<content>ESRD GFR <15 on PERSONAL INJURY PARALEGAL</content>
<content></content> Blood Urea Nitrogen 13 mg/dL 7-18 [facility] ([facility], ) Creatinine For GFR 1.13 mg/dL 0.55-1.30 [facility] ([facility], ) Chloride Level 110 meq/L 98-107 [facility] ([facility]) Potassium Serum 3.9 meq/L 3.5-5.1 [facility] ([facility], ) Sodium Level 140 meq/L 136-145 [facility] ([facility], ) Ast/Sgot 42 U/L 7-37 [facility] ([facility], ) Carbon Dioxide Level 26 meq/L 21-32 [facility] ([facility], ) Calcium Level 9.1 mg/dL 8.5-10.1 [facility] ([facility], ) Anion Gap 4 meq/L 8-16 [facility] ([facility], ) Alt/SGPT 55 U/L 12-78 [facility] ([facility], ) Alkaline Phosphatase 88 U/L 45-117 [facility] ([facility]) Bilirubin,Total 0.6 mg/dL 0.2-1.0 [facility] ([facility]) Albumin/Globulin Ratio 1.19 1.00-1.93 [facility] ([facility]) Total Protein 6.8 GM/DL 6.4-8.2 [facility] ([facility], ) Albumin 3.7 GM/DL 3.2-5.2 [facility] ([facility], ) ID Date Data Source [id number] 03/09/2019 12:54:00 PM EST [facility] ([facility]) Name Value Range Interpretation Code Description Data Marlena rce(s) Supporting Document(s) White Blood Count 4.2 10 4.0-10.0 [facility] ([facility], ) Red Blood Count 4.23 10 4.00-5.40 [facility] ([facility]) Hemoglobin 11.9 g/dL 12.0-15.5 [facility] Mean Corpuscular Volume 87.9 fl 80.0-96.0 M [facility] ([facility]) Hematocrit 37.2 % 36.0-47.0 [facility] Mean Corpuscular HGB Conc 32.0 g/dL 32.0-36.5 [facility] ([facility]) Red Cell Distribution Width 13.1 % 11.5-14.5 [facility] ([facility]) Mean Corpuscular Hemoglobin 28.1 pg 27.0-33.0 [facility] ([facility]) Neutrophils % 55.6 % 36.0-66.0 [facility] ([facility], ) Platelet Count, Automated 239 10 150-450 [facility] Lymph % 34.4 % 24.0-44.0 [facility] ([facility], ) [place] % 6.9 % 0.0-5.0 [facility] ([facility], ) Immature Granulocyte % 0.2 % 0-3.0 [facility] ([facility]) Eos % 1.9 % 0.0-3.0 [facility] ([facility]) Baso % 1.0 % 0.0-1.0 [facility] ([facility]) Lymph # 1.4 10 1.5-5.0 [facility] ([facility]) Nucleated Red Blood Cell % 0.0 % 0-0 MED [facility] ([facility], ) Neutrophils # 2.3 10 1.5-8.5 [facility] ([facility], ) Baso # 0.0 10 0.0-0.2 [facility] ([facility]) Eos # 0.1 10 0.0-0.5 [facility] ([facility]) [place] # 0.3 10 0.0-0.8 [facility] ([facility] ) ID Date Data Source [id number] 03/09/2019 12:54:00 PM EST [facility] ([facility]) Name Value Range Interpretation Code Description Data Amrlena rce(s) Supporting Document(s) White Blood Count 4.2 10 4.0-10.0 [facility] ([facility]) Hemoglobin 11.9 g/dL 12.0-15.5 [facility] ([facility]) Red Blood Count 4.23 10 4.00-5.40 [facility] ([facility]) Hematocrit 37.2 % 36.0-47.0 [facility] ([facility]) Red Cell Distribution Width 13.1 % 11.5-14.5 [facility] ([facility]) Mean Corpuscular Volume 87.9 fl 80.0-96.0 [facility] ([facility]) Mean Corpuscular Hemoglobin 28.1 pg 27.0-33.0 [facility] ([facility]) Mean Corpuscular HGB Conc 32.0 g/dL 32.0-36.5 [facility] ([facility]) Neutrophils % 55.6 % 36.0-66.0 [facility] ([facility]) Lymph % 34.4 % 24.0-44.0 [facility] Platelet Count, Automated 239 10 150-450 [facility] ([facility]) Eos % 1.9 % 0.0-3.0 [facility] [place] % 6.9 % 0.0-5.0 [facility] Baso % 1.0 % 0.0-1.0 [facility] [facility]) Immature Granulocyte % 0.2 % 0-3.0 [facility] ([facility]) Neutrophils # 2.3 10 1.5-8.5 [facility] ([facility]) Nucleated Red Blood Cell % 0.0 % 0-0 [facility] ([facility]) [place] # 0.3 10 0.0-0.8 [facility] Eos # 0.1 10 0.0-0.5 [facility] [facility] Lymph # 1.4 10 1.5-5.0 [facility] Baso # 0.0 10 0.0-0.2 [facility] [facility] ID Date Data Source [id number] 03/09/2019 12:54:00 PM EST [facility] ([facility]) Name Value Range Interpretation Code Description Data Marlena rce(s) Supporting Document(s) Glucose, Fasting 93 mg/dL 70-100 [facility] ([facility]) Blood Urea Nitrogen 13 mg/dL 7-18 [facility] ([facility]) Glomerular Filtration Rate 53.2 [facility] ([facility]) <content>Units are mL/min/1.73 m2</content>
<content></content>
<content>Chronic Kidney Disease Staging per NKF:</content>
<content></content>
<content>Stage I & II GFR >=60 Normal to Mildly Decreased</content>
<content>Stage III GFR 30- 59 Moderately Decreased</content>
<content>Stage IV GFR 15-29 Severely Decreased</content>
<content>Stage V GFR <15 Very Little GFR Left</content>
<content>ESRD GFR <15 on PERSONAL INJURY PARALEGAL</content>
<content></content> Creatinine For GFR 1.13 mg/dL 0.55-1.30 [facility] ([facility]) Sodium Level 140 meq/L 136-145 [facility] ([facility]) Potassium Serum 3.9 meq/L 3.5-5.1 [facility] ([facility]) Carbon Dioxide Level 26 meq/L 21-32 [facility] ([facility]) Chloride Level 110 meq/L 98-107 [facility] ([facility]) Ast/Sgot 42 U/L 7-37 [facility] [facility] Anion Gap 4 meq/L 8-16 [facility] ([facility]) Calcium Level 9.1 mg/dL 8.5-10.1 [facility] ([facility]) Bilirubin,Total 0.6 mg/dL 0.2-1.0 [facility] ([facility]) Alkaline Phosphatase 88 U/L 45-117 [facility] ([facility]) Alt/SGPT 55 U/L 12-78 [facility] [facility] Total Protein 6.8 GM/DL 6.4-8.2 [facility] ([facility]) Albumin 3.7 GM/DL 3.2-5.2 [facility] Albumin/Globulin Ratio 1.19 1.00-1.93 [facility] ID Date Data Source [id number] 03/09/2019 12:54:00 PM EST [facility] ([facility]) Name Value Range Interpretation Code Description Data Marlena rce(s) Supporting Document(s) Lacosamide [Mass/volume] in Serum or Plasma 12.4 ug/mL 5.0-10.0 [facility] ([facility]) This test was developed and its performa nce characteristics determined by [facility]. It has not been cleared or approved by the Food and Drug Administration. Limit of Detection 0.5 . Mean plasma concentrations following maintenance dose 200 mg/day 4.99 +/- 2.51 ug/mL 400 mg/day 9.35 +/- 4.22 ug/mL 600 mg/day 12.46 +/- 5.60 ug/mL Performed at: [facility] [id number] Hand: Aurelio Jimenez MD, Phone: [phone] ID Date Data Source [id number] 02/27/2019 08:06:00 AM EST [facility] ([facility]) Name Value Range Interpretation Code Description Data Marlena rce(s) Supporting Document(s) INR in Platelet poor plasma by Coagulation assay 1.9 [facility] ID Date Data Source [id number] 02/19/2019 07:43:00 AM EST [facility] ([facility]) Name Value Range Interpretation Code Description Data Marlena rce(s) Supporting Document(s) Lacosamide [Mass/volume] in Serum or Plasma 15.6 ug/mL 5.0-10.0 [facility] ([facility]) This test was developed and its performa nce characteristics determined by [employer]. It has not been cleared or approved by the Food and Drug Administration. Limit of Detection 0.5 . Mean plasma concentrations following maintenance dose 200 mg/day 4.99 +/- 2.51 ug/mL 400 mg/day 9.35 +/- 4.22 ug/mL 600 mg/day 12.46 +/- 5.60 ug/mL Topiramate [Mass/volume] in Serum or Plasma 9.4 ug/mL 2.0-25.0 [facility] ([facility]) This test was developed and its performa nce characteristics determined by [employer]. It has not been cleared or approved by the Food and Drug Administration. Detection Limit = 1.0 Performed at: [facility] [id number] Hand: Aurelio Jimenez MD, Phone: [phone] ID Date Data Source [id number] 02/19/2019 07:43:00 AM EST [facility] ([facility]) Name Value Range Interpretation Code Description Data Marlena rce(s) Supporting Document(s) Vitamin B12 Level 570 pg/mL [facility]) VITAMIN B12 NORMAL RANGE NORMAL 247 - 911 PG/ML INDETERMINATE 211 - 246 PG/ML DEFICIENT LESS THAN 211 PG/ML Folate Laboratory test result [facility] ([facility]) FOLATE NORMAL RANGE NORMAL GREATER THAN 5.4 NG/ML INDETERMINATE 3.4-5.4 NG/ML DEFICIENT LESS THAN 3.4 NG/ML ID Date Data Source [id number] 02/19/2019 07:43:00 AM EST [facility] ([facility]) Name Value Range Interpretation Code Description Data Marlena rce(s) Supporting Document(s) Magnesium [Moles/volume] in Serum or Plasma 2.0 mg/dL 1.8-2.4 [facility] ([facility]) By: Y By: Y By: Y Carbamazepine [Mass/volume] in Serum or Plasma 5.4 UG/ML 4.0-10.0 [facility] ([facility]) By: Y By: Y By: Y Thyrotropin [Units/volume] in Serum or Plasma by Detec tion limit <= 0.05 mIU/L 2.070 uIU/ML 0.358-3.740 [facility] ([facility] ) By: Y By: Y By: Y Thyroxine (T4) free [Mass/volume] in Serum or Plasma 0.97 ng/dL 0.76- 1.46 [facility] ([facility]) By: Y By: Y By: Y ID Date Data Source [id number] 02/19/2019 07:43:00 AM EST [facility] ([facility]) Name Value Range Interpretation Code Description Data Marlena rce(s) Supporting Document(s) Glucose, Fasting 93 mg/dL 70-100 [facility] ([facility]) Blood Urea Nitrogen 11 mg/dL 7-18 [facility] ([facility]) Creatinine For GFR 1.07 mg/dL 0.55-1.30 [facility] ([facility]) Chloride Level 110 meq/L 98-107 [facility] ([facility]) Glomerular Filtration Rate 56.7 [facility] ([facility]) <content>Units are mL/min/1.73 m2</content>
<content></content>
<content>Chronic Kidney Disease Staging per NKF:</content>
<content></content>
<content>Stage I & II GFR >=60 Normal to Mildly Decreased</content>
<content>Stage III GFR 30- 59 Moderately Decreased</content>
<content>Stage IV GFR 15-29 Severely Decreased</content>
<content>Stage V GFR <15 Very Little GFR Left</content>
<content>ESRD GFR <15 on PERSONAL INJURY PARALEGAL</content>
<content></content> Potassium Serum 3.9 meq/L 3.5-5.1 [facility] ([facility]) Sodium Level 141 meq/L 136-145 [facility] ([facility]) Anion Gap 7 meq/L 8-16 [facility] ([facility]) Calcium Level 8.5 mg/dL 8.5-10.1 [facility] ([facility]) Carbon Dioxide Level 24 meq/L 21-32 [facility] ([facility]) ID Date Data Source [id number] 02/19/2019 07:43:00 AM EST [facility] ([facility]) Name Value Range Interpretation Code Description Data Marlena rce(s) Supporting Document(s) Ast/Sgot 52 U/L 7-37 [facility] ([facility]) Bilirubin,Total 0.3 mg/dL 0.2-1.0 [facility] ([facility]) Alkaline Phosphatase 105 U/L 45-117 [facility] ([facility]) Alt/SGPT 80 U/L 12-78 [facility] ([facility]) Bilirubin,Direct 0.1 mg/dL 0.0-0.2 [facility] ([facility]) Total Protein 7.1 GM/DL 6.4-8.2 [facility] ([facility]) Albumin 3.9 GM/DL 3.2-5.2 [facility] ([facility]) Albumin/Globulin Ratio 1.22 1.00-1.93 [facility] ([facility]) ID Date Data Source [id number] 02/19/2019 07:43:00 AM EST [facility] ([facility]) Name Value Range Interpretation Code Description Data Marlena rce(s) Supporting Document(s) CK-MB Value Mass 1.1 ng/mL [facility] ([facility]) CPK Creatine Phosphokinase 113 U/L 26-192 [facility] ([facility]) MB/CK Relative Index 0.97 [facility] ([facility] <content>DIAGNOSIS CRITERIA</content>
<content>MMB ng/ml Relative Index (RI)</content>
<content>NON-AMI < or = 5 N/A</content>
<content>MURRAY ZONE > 5 < or = 4</content>
<content>AMI > 5 > 4</content>
<content></content> Troponin I Laboratory test result [facility] ([facility]) <content>Troponin I Reference Interval f or Siemens [place] LOCI:</content>
<content></content>
<content>99th Percentile= 0.00-0.045 ng/ml</content>
<content></content>
<content>Risk Stratification:</content>
<content><= 0.10 ng/ml Decreased Risk for Adverse Clinical</content>
<content>Events.</content>
<content>0.10-1.50 ng/ml Increased Risk for Adverse Clinical</content>
<content>Events. Evaluation of additional</content>
<content>criterion and/or repeat testing in 2-6</content>
<content>hours is suggested to rule out myocardial</content>
<content>damage.</content>
<content>>= 1.50 ng/ml Indicative of Myocardial Injury.</content>
<content></content> ID Date Data Source [id number] 02/19/2019 07:43:00 AM EST [facility] ([facility]) Name Value Range Interpretation Code Description Data Marlena rce(s) Supporting Document(s) White Blood Count 4.8 10 4.0-10.0 [facility] ([facility]) Hematocrit 38.6 % 36.0-47.0 [facility] Red Blood Count 4.25 10 4.00-5.40 [facility] ([facility]) Hemoglobin 12.2 g/dL 12.0-15.5 [facility]) Mean Corpuscular Volume 90.8 fl 80.0-96.0 [facility] ([facility]) Mean Corpuscular HGB Conc 31.6 g/dL 32.0-36.5 [facility] NT ([facility]) Red Cell Distribution Width 13.2 % 11.5-14.5 [facility] ([facility]) Mean Corpuscular Hemoglobin 28.7 pg 27.0-33.0 [facility] ([facility]) Platelet Count, Automated 228 10 150-450 [facility] NT ([facility]) Lymph % 33.5 % 24.0-44.0 [facility]) Neutrophils % 52.5 % 36.0-66.0 [facility] ([facility]) [place] % 6.0 % 0.0-5.0 [facility]) Eos % 7.0 % 0.0-3.0 [facility]) Baso % 0.8 % 0.0-1.0 [facility]) Nucleated Red Blood Cell % 0.0 % 0-0 [facility] ([facility]) Immature Granulocyte % 0.2 % 0-3.0 [facility] ([facility]) Neutrophils # 2.5 10 1.5-8.5 [facility] ([facility]) Eos # 0.3 10 0.0-0.5 [facility]) [place] # 0.3 10 0.0-0.8 [facility]) Baso # 0.0 10 0.0-0.2 [facility]) Lymph # 1.6 10 1.5-5.0 [facility]) ID Date Data Source [id number] 02/13/2019 07:09:00 AM EST [facility] ([facility]) Name Value Range Interpretation Code Description Data Marlena rce(s) Supporting Document(s) INR in Platelet poor plasma by Coagulation assay 1.9 [facility] ([facility]) ID Date Data Source [id number] 02/10/2019 08:50:00 AM EST [facility] ([facility]) Name Value Range Interpretation Code Description Data Marlena rce(s) Supporting Document(s) INR in Platelet poor plasma by Coagulation assay 4.5 [facility] ([facility]) ID Date Data Source [id number] 02/03/2019 07:55:00 AM EST [facility] ([facility]) Name Value Range Interpretation Code Description Data Marlena rce(s) Supporting Document(s) INR in Platelet poor plasma by Coagulation assay 1.4 [facility] ([facility]) ID Date Data Source [id number] 01/28/2019 10:44:00 AM EST [facility] ([facility]) Name Value Range Interpretation Code Description Data Marlena rce(s) Supporting Document(s) INR in Platelet poor plasma by Coagulation assay 1.3 [facility] ([facility]) ID Date Data Source [id number] 01/20/2019 11:54:00 AM EST [facility] ([facility]) Name Value Range Interpretation Code Description Data Marlena rce(s) Supporting Document(s) INR in Platelet poor plasma by Coagulation assay 3.5 [facility] ([facility]) ID Date Data Source [id number] 01/20/2019 08:57:00 AM EST [facility] ([facility]) Name Value Range Interpretation Code Description Data Marlena rce(s) Supporting Document(s) Cholesterol [Mass/volume] in Serum or Plasma 269 mg/dL 131-200 [facility] ([facility]) Triglyceride [Mass/volume] in Serum or Plasma 77 mg/dL 30-150 [facility] ([facility]) Cholesterol in LDL [Mass/volume] in Serum or Plasma by calcu lation 172 CALC 50-159 [facility] ([facility]) Cholesterol in HDL [Mass/volume] in Serum or Plasma 82 mg/dL 35-60 [facility] ([facility]) ID Date Data Source [id number] 01/20/2019 08:57:00 AM EST [facility] ([facility]) Name Value Range Interpretation Code Description Data Marlena rce(s) Supporting Document(s) Glucose [Mass/volume] in Serum or Plasma 98 mg/dL 74-99 [facility] ([facility]) 100-125 mg/dL PRE-DIABETES/FASTING >126 mg/dL DIABETES/FASTING Urea nitrogen [Mass/volume] in Serum or Plasma 10 mg/dL 7-18 [facility] ([facility]) Creatinine 0.9 mg/dL 0.6-1.3 [facility] ([facility]) Sodium [Moles/volume] in Serum or Plasma 144 meq/L 136-145 [facility] ([facility]) Potassium [Moles/volume] in Serum or Plasma 3.9 meq/L 3.5-5.1 [facility] ([facility]) Chloride [Moles/volume] in Serum or Plasma 109 meq/L 98-107 [facility] ([facility]) Carbon dioxide, total [Moles/volume] in Serum or Plasma 24 meq/L 21 -32 [facility] ([facility]) Calcium [Mass/volume] in Serum or Plasma 9.0 mg/dL 8.5-10.1 [facility] ([facility]) Alkaline phosphatase isoenzyme [Units/volume] in Serum or Pl asma 112 mg/dL 46-116 [facility] ([facility]) Alanine aminotransferase [Enzymatic activity/volume] in Seru m or Plasma 36 U/L 12-78 [facility] ([facility]) Total Bilirubin 0.3 mg/dL 0.2-1.0 [facility] ([facility]) Aspartate aminotransferase [Enzymatic activity/volume] in Serum or Plasma 20 U/L 15-37 [facility] ([facility] ) Proteinase 3 Ab [Units/volume] in Serum 6.8 g/dL 6.4-8.2 [facility] ([facility]) Albumin [Mass/volume] in Serum or Plasma 3.4 g/dL 3.4-5.0 [facility] ([facility]) A/G Ratio 1.00 CALC 1.00-1.90 [facility] ([facility]) Glomerular filtration rate/1.73 sq M pre dicted among blacks [Volume Rate/Area] in Serum or Plasma by Creatinine-based formula (MDRD) >= 60 mL/min [facility] <content>CHRONIC KIDNEY DISEASE STAGING PER NKF</content>
<content></content>
<content>STAGE I & II GFR >= 60 NORMAL TO MILDLY DECREASED</content>
<content>STAGE III GFR 30-59 MODERATELY DECREASED</content>
<content>STAGE IV GFR 15-29 SEVERELY DECREASED</content>
<content>STAGE V GFR <15 VERY LITTLE GFR LEFT</content>
<content>ESRD GFR <15 ON PERSONAL INJURY PARALEGAL</content>
<content></content> Glomerular filtration rate/1.73 sq M pre dicted among non-blacks [Volume Rate/Area] in Serum or Plasma by Creatinine-based formula (MDRD) >= 60 mL/min [facility]) ID Date Data Source [id number] 01/20/2019 08:57:00 AM EST [facility] ([facility]) Name Value Range Interpretation Code Description Data Marlena rce(s) Supporting Document(s) Leukocytes [#/volume] in Blood by Automated count 5.7 x10*3/UL 4.1-10 .9 [facility]) Erythrocytes [#/volume] in Blood by Automated count 4.09 x10*6/UL 4.2 0-6.30 [facility] ([facility]) Hemoglobin [Mass/volume] in Blood 11.8 g/dL 12.0-18.0 [facility] ([facility]) Hematocrit [Volume Fraction] of Blood by Automated count 35.4 % 3 7.0-51.0 [facility] ([facility]) MCH 29.0 pg 26.0-32.0 [facility] MCV 86.6 fL 80.0-97.0 [facility] ([facility]) Erythrocyte distribution width [Ratio] by Automated count 13.5 % 11.6-13.7 [facility] ([facility]) MCHC 33.4 g/dL 31.0-38.0 [facility] Platelets [#/volume] in Blood by Automated count 239 x10*3/UL 140-440 [facility] ([facility]) Lymph % 15.1 % 10.0-58.5 [facility] Mid % 4.6 % 1.7-9.3 [facility]) MPV 8.3 FL 7.8-11.0 [facility]) Neut % 80.3 % 37.0-92.0 [facility]) Lymph # 0.8 x10*3/UL 0.6-4.1 [facility] ([facility]) Mid # 0.3 x10*3/UL 0.1-0.6 [facility] ([facility]) Neut # 4.6 x10*3/UL 2.0-7.8 [facility] ([facility]) ID Date Data Source [id number] 01/13/2019 08:10:00 AM EST [facility] ([facility]) Name Value Range Interpretation Code Description Data Marlena rce(s) Supporting Document(s) INR in Platelet poor plasma by Coagulation assay 1.8 [facility]) Procedure Vital Signs ID Date Data Source [id number] Name Value Range Interpretation Code Description Data Source(s) Body mass index (BMI) [Ratio] 28.8 kg/m2 28.8 k g/m2 [facility] ([facility]) Body weight 168.00 [lb_av] 168.00 [lb_av] [facility] T ([facility]) Body height 64 [in_i] 64 [in_i] [facility] ([facility]) 5'4" Heart rate 76 /min 76 /min [facility]) Diastolic blood pressure 72 mm[Hg] 72 mm[Hg] [facility] ([facility]) Systolic blood pressure 132 mm[Hg] 132 mm[Hg] M EDENT ([facility]) Diastolic blood pressure 65 mm[Hg] 65 mm[Hg] eCW1 ([facility]) Systolic blood pressure 100 mm[Hg] 100 mm[Hg] e CW1 ([facility]) Body mass index (BMI) [Ratio] 35.36 kg/m2 35.36 kg/m2 eCW1 ([facility]) Body height 64 [in_i] 64 [in_i] eCW1 ([facility]) Body weight 93.44 kg 93.44 kg eCW1 ([facility]) Body weight 206 [lb_av] 206 [lb_av] eCW1 ([facility]) Body mass index (BMI) [Ratio] 28.8 kg/m2 28.8 k g/m2 [facility] ([facility]) Oxygen saturation in Arterial blood by Pulse oximetry 98 % 98 % [facility] ([facility]) Body weight 168.00 [lb_av] 168.00 [lb_av] [facility] T ([facility]) Body height 64 [in_i] 64 [in_i] [facility] ([facility]) 5'4" Heart rate 82 /min 82 /min [facility] ([facility]) Diastolic blood pressure 80 mm[Hg] 80 mm[Hg] [facility] ([facility]) Systolic blood pressure 130 mm[Hg] 130 mm[Hg] M EDENT ([facility]) Body weight 77.112 kg 77.112 kg [facility] ([facility], ) [place] body weight 125 [lb_av] 125 [lb_av] [facility] T ([facility]) Body mass index (BMI) [Ratio] 28.3 kg/m2 28.3 k g/m2 [facility] ([facility], ) Body weight 170.00 [lb_av] 170.00 [lb_av] [facility] T ([facility], ) Body height 65 [in_i] 65 [in_i] [facility] ([facility], ) 5'5" Body mass index (BMI) [Ratio] 29.9 kg/m2 29.9 k g/m2 [facility] ([facility]) Body weight 174.50 [lb_av] 174.50 [lb_av] [facility] T ([facility]) Body height 64 [in_i] 64 [in_i] [facility] ([facility]) 5'4" Heart rate 76 /min 76 /min [facility] ([facility]) Diastolic blood pressure 70 mm[Hg] 70 mm[Hg] [facility] ([facility]) LT Arm Systolic blood pressure 110 mm[Hg] 110 mm[Hg] [facility] ([facility]) LT Arm Body mass index (BMI) [Ratio] 28.3 kg/m2 28.3 k g/m2 [facility] ([facility]) Body weight 165.00 [lb_av] 165.00 [lb_av] [facility] T ([facility]) Body height 64 [in_i] 64 [in_i] [facility] ([facility]) 5'4" Heart rate 82 /min 82 /min [facility] ([facility]) Diastolic blood pressure 60 mm[Hg] 60 mm[Hg] [facility] ([facility]) Systolic blood pressure 110 mm[Hg] 110 mm[Hg] [facility] ([facility]) Body mass index (BMI) [Ratio] 30.2 kg/m2 30.2 k g/m2 [facility] ([facility]) Body weight 176.00 [lb_av] 176.00 [lb_av] [facility] T ([facility]) Body height 64 [in_i] 64 [in_i] [facility] ([facility]) 5'4" Heart rate 80 /min 80 /min [facility] ([facility]) Diastolic blood pressure 62 mm[Hg] 62 mm[Hg] [facility] ([facility]) RT Arm Systolic blood pressure 112 mm[Hg] 112 mm[Hg] [facility] ([facility]) RT Arm Body mass index (BMI) [Ratio] 29.7 kg/m2 29.7 k g/m2 [facility] ([facility]) Body weight 173.00 [lb_av] 173.00 [lb_av] [facility] T ([facility]) Body height 64 [in_i] 64 [in_i] [facility] ([facility]) 5'4" Heart rate 80 /min 80 /min [facility] ([facility]) Diastolic blood pressure 52 mm[Hg] 52 mm[Hg] [facility]) lT Arm Systolic blood pressure 104 mm[Hg] 104 mm[Hg] M [facility] ([facility]) lT Arm Body mass index (BMI) [Ratio] 30.1 kg/m2 30.1 k g/m2 [facility] ([facility]) Body weight 175.25 [lb_av] 175.25 [lb_av] [facility] Body height 64 [in_i] 64 [in_i] [facility] ([facility]) 5'4" Heart rate 80 /min 80 /min [facility] ([facility]) Diastolic blood pressure 70 mm[Hg] 70 mm[Hg] [facility] ([facility]) RT Arm Systolic blood pressure 118 mm[Hg] 118 mm[Hg] [facility] ([facility]) RT Arm Oxygen saturation in Arterial blood by Pulse oximetry 99 % 99 % [facility] ([facility]) Body weight 177.00 [lb_av] 177.00 [lb_av] [facility] ([facility]) Heart rate 80 /min 80 /min [facility] ([facility]) Diastolic blood pressure 80 mm[Hg] 80 mm[Hg] [facility] ([facility]) Systolic blood pressure 118 mm[Hg] 118 mm[Hg] [facility] ([facility]) Body weight 179.00 [lb_av] 179.00 [lb_av] [facility] ([facility]) Oxygen saturation in Arterial blood by Pulse oximetry 99 % 99 % [facility] ([facility]) Heart rate 70 /min 70 /min [facility] ([facility]) Diastolic blood pressure 74 mm[Hg] 74 mm[Hg] [facility] ([facility]) Systolic blood pressure 122 mm[Hg] 122 mm[Hg] [facility] ([facility]) Body mass index (BMI) [Ratio] 31.2 kg/m2 31.2 k g/m2 [facility] Body weight 182.00 [lb_av] 182.00 [lb_av] [facility] ([facility]) Body height 64 [in_i] 64 [in_i] MICHAELLE ([facility]) 5'4"
[2020-03-10] MEDS ORDERED: fentaNYL 100 MCG/2 ML INJECTION (J3010) As Ordered ONE (08:23)
[2020-03-10] MEDS ORDERED: propofoL 200 MG/20 ML VIAL As Ordered ONE ×2 (08:23→09:23)
[2020-03-10] MEDS ORDERED: LIDOCAINE 2% 100MG/5ML SDV (FOR ANES.) As Ordered ONE (08:23)
[2020-03-10] MEDS ORDERED: ONDANSETRON 4MG/2ML VIAL As Ordered ONE (08:23)
[2020-03-10] MEDS ORDERED: ROCURONIUM BROMIDE 50 MG/5 ML VIAL As Ordered ONE ×2 (08:23→09:26)
[2020-03-10] MEDS ORDERED: dexameTHASONE 4 MG/ML 1ML VIAL (J1100 PER 1MG) As Ordered ONE (08:23)
[2020-03-10] MEDS ORDERED: MIDAZOLAM INJ 2MG/2ML VIAL (J2250 PER 1MG) As Ordered ONE (08:28)
[2020-03-10] MEDS ORDERED: OXYMETAZOLINE 0.05% NASAL SPRAY (AFRIN) As Ordered ONE (08:36)
[2020-03-10] MEDS ORDERED: METHYLENE BLUE 0.5% (5MG/ML) 10 ML AMP (PROVAYBLUE) As Ordered ONE (08:36)
[2020-03-10] MEDS: LIDOCAINE W/EPINEPHRINE 1% 20ML VIAL As Ordered ONE ×2 (08:36→09:45)
[2020-03-10] MEDS ORDERED: ACETAMINOPHEN 1000MG 100ML IV BTL (OFIRMEV) (J0131 PER 10MG) As Ordered ONE (09:15)
[2020-03-10] MEDS ORDERED: SUGAMMADEX SODIUM 500 MG/5 ML VIAL (BRIDION) As Ordered ONE (09:43)
[2020-03-10] MEDS ORDERED: SILVER NITRATE APPLICATOR As Ordered ONE (09:54)
[2020-03-10] MEDS ORDERED: fentaNYL 100 MCG/2 ML INJECTION (J3010) IV PRN (10:30)
[2020-03-10] MEDS ORDERED: oxyCODONE 5MG TAB PO PRN (10:30)
[2020-03-10] MEDS ORDERED: ONDANSETRON 4MG/2ML VIAL IV PRN (10:30)
[2020-03-10] MEDS ORDERED: LR 1,000 ML IV SCH ×2 (10:30)
[2020-03-10 10:55] VITALS: BP 126/69
--- NOTE | 2020-04-06 10:42 | RO ---
OPERATIVE NOTE DATE OF OPERATION: 03/10/2020 PREOPERATIVE DIAGNOSIS: Mass on the right and the left anterior tonsil pillars. POSTOPERATIVE DIAGNOSIS: Mass on the right and the left anterior tonsil pillars. PROCEDURE PERFORMED: Biopsy of the right and the left anterior tonsil pillar. SURGEON: Ryan Vides MD. COMPLEX MANAGER: ANESTHESIA: General. CLINICAL PREAMBLE: This 54-year-old woman presented to our office with history of mass lesion over the left and the right anterior tonsil pillar. Management options including biopsy of the left and right anterior tonsil pillar mass lesions had been discussed. The patient understood and consent to the procedure. DESCRIPTION OF PROCEDURE: Patient was identified in preoperative holding and brought to the operating room in stable condition. In the supine position on the operating table, patient received general anesthesia followed by orotracheal intubation without incident. Patient was prepped and draped in the usual fashion for the procedure. The June-Jorge mouth gag was inserted and suspended. Palpation of the oral tongue, base of tongue, and posterior and lateral pharyngeal gómez shows no evidence of discreet nodule. Upon inspection of the oropharyngeal area, a small mucosal lesion was noted over the right and left anterior tonsil pillars. Under direct visualization, the excisional biopsy was performed from the left and the right anterior tonsil pillar lesions. Hemostasis was achieved. At the end of the procedure, sponge and instrument counts were correct. No complication was encountered. Estimated blood loss was less than 1 mL. General anesthesia was reversed, and patient was extubated and brought to the recovery room in stable condition.
== END 2020-03-10 11:43 | disposition home or self-care (01) ==
LOC: M SDC 06:55
PROVIDERS: ATTEND Otolaryngology
DX: D10.4 Benign neoplasm of tonsil (principal); G43.909 Migraine, unspecified, not intractable, without status migrainosus; E78.5 Hyperlipidemia, unspecified; E04.1 Nontoxic single thyroid nodule; Z87.891 Personal history of nicotine dependence; Z88.0 Allergy status to penicillin; Z91.030 Bee allergy status; Z91.040 Latex allergy status; Z88.1 Allergy status to other antibiotic agents; Z79.01 Long term (current) use of anticoagulants; Z79.899 Other long term (current) drug therapy; Z86.711 Personal history of pulmonary embolism
CPT/HCPCS: 31535; 88305; J0131; J1100; J2250; J2405; J3010; Q9968

== ENCOUNTER → 2020-08-23 | Outpatient (CLI) | payer OTHER ==
[2020-08-23 15:17] LABS: BASO # 0.1 10^3/uL (0.0-0.2); BASO % 1.1 % (0.0-1.0); EOS # 0.1 10^3/uL (0.0-0.5); EOS % 1.1 % (0.0-3.0); HEMATOCRIT 38.4 % (36.0-47.0); HEMOGLOBIN 12.7 g/dl (12.0-15.5); LYMPH # 1.2 10^3/uL (1.5-5.0); LYMPH % 26.1 % (24.0-44.0); MEAN CORPUSCULAR HEMOGLOBIN 28.3 pg (27.0-33.0); MEAN CORPUSCULAR HGB CONC 33.1 g/dl (32.0-36.5); MEAN CORPUSCULAR VOLUME 85.5 fl (80.0-96.0); MONO # 0.3 10^3/uL (0.0-0.8); MONO % 5.8 % (2.0-8.0); NEUTROPHILS % 65.7 % (36.0-66.0); PLATELET COUNT, AUTOMATED 256 10^3/uL (150-450); RED BLOOD COUNT 4.49 10^6/uL (4.00-5.40); WHITE BLOOD COUNT 4.6 10^3/uL (4.0-10.0)
[2020-08-23 15:45] LABS: ALT/SGPT 37 U/L (12-78); BILIRUBIN,TOTAL 0.3 MG/DL (0.2-1.0); BLOOD UREA NITROGEN 8 MG/DL (7-18); CALCIUM LEVEL 9.6 MG/DL (8.5-10.1); CARBON DIOXIDE LEVEL 23 MEQ/L (21-32); CHLORIDE LEVEL 110 MEQ/L (98-107); CREATININE FOR GFR 0.96 MG/DL (0.55-1.30); GLOMERULAR FILTRATION RATE > 60.0 (>51); GLUCOSE, FASTING 90 MG/DL (70-100); POTASSIUM SERUM 4.1 MEQ/L (3.5-5.1); SODIUM LEVEL 141 MEQ/L (136-145); TOTAL PROTEIN 7.1 GM/DL (6.4-8.2)
== END ==
LOC: M LAB 14:36
PROVIDERS: ATTEND Psychiatry & Neurology Neurology
DX: R56.9 Unspecified convulsions (principal)

== ENCOUNTER → 2021-06-14 | Outpatient (REF) | LOC: M LABSMTC 09:57 | PROVIDERS: ATTEND Family Medicine | DX: Z11.52 Encounter for screening for COVID-19 (principal); Z20.822 Contact with and (suspected) exposure to COVID-19 ==

== ENCOUNTER → 2021-10-11 | Outpatient (CLI) | payer BC, OTHER | LOC: M WHC 07:13 | PROVIDERS: ATTEND Nurse Practitioner Family | DX: Z12.31 Encounter for screening mammogram for malignant neoplasm of breast (principal) ==

== ENCOUNTER → 2021-10-11 | Outpatient (REF) | payer BC | LOC: M PLALAB 08:16 | PROVIDERS: ATTEND Nurse Practitioner Family | DX: Z12.4 Encounter for screening for malignant neoplasm of cervix (principal); N95.2 Postmenopausal atrophic vaginitis | CPT/HCPCS: 87624; G0123 ==

== ENCOUNTER → 2022-01-08 | Outpatient (REF) | payer BC | LOC: M LAB REF 16:09 | PROVIDERS: ATTEND Student in an Organized Health Care Education/Training Program | DX: J06.9 Acute upper respiratory infection, unspecified (principal) ==

== ENCOUNTER → 2022-02-28 | Outpatient (REF) | LOC: M LABSMTC 11:40 | PROVIDERS: ATTEND Family Medicine | DX: Z20.822 Contact with and (suspected) exposure to COVID-19 (principal) ==

== ENCOUNTER → 2022-03-30 | Outpatient (REF) | LOC: M LABSMTC 10:02 | PROVIDERS: ATTEND Family Medicine | DX: Z11.52 Encounter for screening for COVID-19 (principal) ==

== ENCOUNTER → 2022-04-02 | Outpatient (REF) | payer BC ==
[2022-04-02 18:55] LABS: PERCENT SATURATION 6.9 % (13.2-45.0)
[2022-04-02 18:57] LABS: FERRITIN 5.5 NG/ML (7.3-270.7)
[2022-04-02 18:59] LABS: HEMATOCRIT 36.3 % (36.0-47.0)
== END ==
LOC: M LAB REF 16:08
PROVIDERS: ATTEND Nurse Practitioner Adult Health
DX: Z98.84 Bariatric surgery status (principal)

== ENCOUNTER 2022-06-14 08:13 | Day surgery (SDC) | payer BC ==
[~2022-06-14] VITALS: Ht 163.2 cm; Wt 75.7 kg
[~2022-06-14 08:13] MED LIST changes: +ALBU8.5H; +IRON1TAB2 PO; +NS 1,000 ML IV ONE; +TOPI-254 PO; -TOPI50TA9 PO
[2022-06-14] MEDS ORDERED: LIDOCAINE 2% 100MG/5ML SDV (FOR ANES.) As Ordered ONE (09:29)
[2022-06-14] MEDS ORDERED: propofoL 200 MG/20 ML VIAL As Ordered ONE ×2 (09:29→09:46)
[2022-06-14 10:21] VITALS: BP 131/66
== END 2022-06-14 10:29 | disposition home or self-care (01) ==
LOC: M OPP 08:13
PROVIDERS: ATTEND Surgery
DX: Z12.11 Encounter for screening for malignant neoplasm of colon (principal); Z86.010 Personal history of colon polyps; K63.5 Polyp of colon; G47.33 Obstructive sleep apnea (adult) (pediatric); F17.200 Nicotine dependence, unspecified, uncomplicated; Z79.02 Long term (current) use of antithrombotics/antiplatelets; Z79.82 Long term (current) use of aspirin; Z79.899 Other long term (current) drug therapy; Z88.0 Allergy status to penicillin; Z88.1 Allergy status to other antibiotic agents; Z88.8 Allergy status to other drugs, medicaments and biological substances; Z91.030 Bee allergy status; Z91.040 Latex allergy status

== ENCOUNTER → 2022-10-17 | Outpatient (REF) ==
[~2022-10-17] MED LIST changes: -NS 1,000 ML IV ONE
== END ==
LOC: M EMP 08:46
PROVIDERS: ATTEND Family Medicine
DX: Z11.52 Encounter for screening for COVID-19 (principal)

== ENCOUNTER → 2022-10-31 | Outpatient (REF) | payer BC ==
[2022-10-31 13:08] LABS: FOLATE > 24.0 NG/ML (>5.4); VITAMIN B12 LEVEL 512 PG/ML (211-911)
== END ==
LOC: M LAB REF 12:28
PROVIDERS: ATTEND Nurse Practitioner Adult Health
DX: D51.9 Vitamin B12 deficiency anemia, unspecified (principal); Z98.84 Bariatric surgery status

== ENCOUNTER → 2023-02-21 | Outpatient (CLI) | payer BC ==
[~2023-02-21] MED LIST changes: +TOPI-21 PO; -TOPI-254 PO
== END ==
LOC: M WHC 08:02
PROVIDERS: ATTEND Nurse Practitioner Family
DX: Z12.31 Encounter for screening mammogram for malignant neoplasm of breast (principal); R92.323 Mammographic fibroglandular density, bilateral breasts

== ENCOUNTER → 2023-03-06 | Outpatient (CLI) | payer BC | LOC: M WHC 07:20 | PROVIDERS: ATTEND Nurse Practitioner Family | DX: R10.2 Pelvic and perineal pain (principal); R93.89 Abnormal findings on diagnostic imaging of other specified body structures ==

== ENCOUNTER → 2023-05-06 | Outpatient (REF) | payer BC ==
[2023-05-06 18:53] LABS: PERCENT SATURATION 14.2 % (13.2-45.0)
[2023-05-06 18:56] LABS: FERRITIN 54.7 NG/ML (7.3-270.7)
[2023-05-06 19:03] LABS: HEMATOCRIT 42.7 % (36.0-47.0)
== END ==
LOC: M LAB REF 17:17
PROVIDERS: ATTEND Nurse Practitioner Adult Health
DX: Z98.84 Bariatric surgery status (principal); D64.9 Anemia, unspecified

== ENCOUNTER → 2023-10-30 | Outpatient (REF) ==
[~2023-10-30] MED LIST changes: -AZEL0.055; +AZEL1SPR4; +CARB-115 PO; -CARB200T98 PO; +ONDA-284 PO; -ONDA8TAB8 PO
== END ==
LOC: M EMP 09:26
PROVIDERS: ATTEND Family Medicine
DX: Z11.52 Encounter for screening for COVID-19 (principal)

== ENCOUNTER → 2023-11-06 | Outpatient (REF) | payer BC ==
[2023-11-06 13:41] LABS: IRON (FE) 39 UG/DL (50-170); PERCENT SATURATION 11.7 % (13.2-45.0); TOTAL IRON BINDING CAPACITY 332 UG/DL (250-425)
[2023-11-06 13:42] LABS: FERRITIN 155.8 NG/ML (7.3-270.7); TOTAL 25(OH) VITAMIN D 39.4 NG/ML (20.0-100.0)
[2023-11-06 13:43] LABS: FOLATE > 24.0 NG/ML (>5.4); VITAMIN B12 LEVEL 692 PG/ML (211-911)
== END ==
LOC: M LAB REF 13:07
PROVIDERS: ATTEND Nurse Practitioner Adult Health
DX: Z98.84 Bariatric surgery status (principal); G40.89 Other seizures

== ENCOUNTER → 2024-11-04 | Outpatient (REF) | payer BC ==
[2024-11-04 13:58] LABS: IRON (FE) 135 UG/DL (50-170); PERCENT SATURATION 48.9 % (13.2-45.0); PHOSPHORUS LEVEL 3.1 MG/DL (2.4-5.1)
[2024-11-04 13:59] LABS: TOTAL 25(OH) VITAMIN D 56.3 NG/ML (20.0-100.0)
[2024-11-04 14:00] LABS: VITAMIN B12 LEVEL 615 PG/ML (211-911)
== END ==
LOC: M LAB REF 11:38
PROVIDERS: ATTEND Nurse Practitioner Adult Health
DX: Z98.84 Bariatric surgery status (principal)

== ENCOUNTER → 2024-12-23 | Outpatient (CLI) | payer BC | LOC: M WHC 14:54 | PROVIDERS: ATTEND Physician Assistant | DX: Z12.31 Encounter for screening mammogram for malignant neoplasm of breast (principal) ==

== ENCOUNTER → 2024-12-23 | Outpatient (REF) | payer BC ==
[2024-12-25 14:28] LABS: HPV APTIMA Not Detected (Not Detected)
== END ==
LOC: M PLALAB 15:51
PROVIDERS: ATTEND Physician Assistant
DX: Z12.4 Encounter for screening for malignant neoplasm of cervix (principal)
CPT/HCPCS: 87624; G0123